=== PATIENT | male | born 1945 | race Caucasian/White ===

== ENCOUNTER 2017-11-01 10:14 | Day surgery (SDC) | payer MEDICARE ==
[2017-11-01] MEDS: NS 1,000 ML IV (10:00)
[2017-11-01] MEDS ORDERED: PROPOFOL 500 MG/50 ML VIAL As Ordered (11:08)
[2017-11-01] MEDS ORDERED: LIDOCAINE 2% INJ 100 MG/5 ML SDV (FOR ANES.) As Ordered (11:15)
== END 2017-11-01 13:20 | disposition home or self-care (01) ==
LOC: M OPP 10:14
DX: K92.1 Melena (principal); D62 Acute posthemorrhagic anemia; D50.9 Iron deficiency anemia, unspecified; C18.9 Malignant neoplasm of colon, unspecified; K63.89 Other specified diseases of intestine; K57.30 Diverticulosis of large intestine without perforation or abscess without bleeding; K62.89 Other specified diseases of anus and rectum; K64.8 Other hemorrhoids; K22.8 Other specified diseases of esophagus; K29.70 Gastritis, unspecified, without bleeding; K31.89 Other diseases of stomach and duodenum; K44.9 Diaphragmatic hernia without obstruction or gangrene; K57.10 Diverticulosis of small intestine without perforation or abscess without bleeding; Z95.5 Presence of coronary angioplasty implant and graft; I25.10 Atherosclerotic heart disease of native coronary artery without angina pectoris; I10 Essential (primary) hypertension; E78.5 Hyperlipidemia, unspecified; R12 Heartburn; K21.9 Gastro-esophageal reflux disease without esophagitis; M54.9 Dorsalgia, unspecified; R06.83 Snoring; Z85.46 Personal history of malignant neoplasm of prostate; Z92.3 Personal history of irradiation; Z85.820 Personal history of malignant melanoma of skin; Z88.8 Allergy status to other drugs, medicaments and biological substances; Z91.048 Other nonmedicinal substance allergy status; Z79.82 Long term (current) use of aspirin; Z79.899 Other long term (current) drug therapy; Z79.02 Long term (current) use of antithrombotics/antiplatelets
CPT/HCPCS: 45380

== ENCOUNTER → 2017-11-06 | Outpatient (CLI) | payer MEDICARE ==
[2017-11-06 12:17] LABS: BASO # 0.1 10^3/uL (0.0-0.2); BASO % 1.4 % (0.0-1.0); EOS # 0.1 10^3/uL (0.0-0.50); EOS % 1.7 % (0.0-3.0); HEMATOCRIT 32.6 % (42.0-52.0); HEMOGLOBIN 9.8 g/dl (14.0-18.0); IMMATURE GRANULOCYTE % 0.3 % (0-0); LYMPH % 16.7 % (24.0-44.0); MEAN CORPUSCULAR HEMOGLOBIN 25.3 pg (27.0-33.0); MEAN CORPUSCULAR HGB CONC 30.1 g/dl (32.0-36.5); MONO # 0.6 10^3/uL (0.0-0.8); MONO % 9.5 % (0.0-5.0); NEUTROPHILS # 4.1 10^3/uL (1.8-7.7); NEUTROPHILS % 70.4 % (36.0-66.0); PLATELET COUNT, AUTOMATED 278 10^3/uL (150-450); RED BLOOD COUNT 3.88 10^6/uL (4.30-6.10); RED CELL DISTRIBUTION WIDTH 15.3 % (11.5-14.5); WHITE BLOOD COUNT 5.8 10^3/uL (4.0-10.0)
[2017-11-06 12:56] LABS: ALBUMIN 3.3 GM/DL (3.2-5.2); ALBUMIN/GLOBULIN RATIO 1.18 (1.00-1.93); ALKALINE PHOSPHATASE 81 U/L (45-117); ALT/SGPT 16 U/L (12-78); ANION GAP 5 MEQ/L (8-16); AST/SGOT 12 U/L (7-37); BILIRUBIN,TOTAL 0.3 MG/DL (0.2-1.0); BLOOD UREA NITROGEN 19 MG/DL (7-18); CALCIUM LEVEL 8.4 MG/DL (8.8-10.2); CARBON DIOXIDE LEVEL 29 MEQ/L (21-32); CHLORIDE LEVEL 107 MEQ/L (98-107); CREATININE FOR GFR 1.27 MG/DL (0.70-1.30); GLOMERULAR FILTRATION RATE 59.2 (>42); GLUCOSE, FASTING 108 MG/DL (70-100); POTASSIUM SERUM 4.3 MEQ/L (3.5-5.1); SODIUM LEVEL 141 MEQ/L (136-145); TOTAL PROTEIN 6.1 GM/DL (6.4-8.2)
[2017-11-07 10:03] LABS: CARCINOEMBRYONIC ANTIGEN 19.7 NG/ML (<2.5)
== END ==
LOC: M LAB 11:38
DX: C18.2 Malignant neoplasm of ascending colon (principal)
CPT/HCPCS: 82378

== ENCOUNTER → 2017-11-09 | Outpatient (CLI) | payer MEDICARE ==
[~2017-11-09] MED LIST: GASTROGRAFIN SOLUTION 30ML (Q9963) As Ordered; ISOVUE-370 76% 100ML VIAL (Q9967) As Ordered
== END ==
LOC: M RAD 08:00
DX: C18.2 Malignant neoplasm of ascending colon (principal); N28.1 Cyst of kidney, acquired
CPT/HCPCS: Q9963

== ENCOUNTER → 2018-01-29 | Outpatient (REF) | payer MEDICARE, MEDICAID ==
[2018-01-29 13:43] LABS: INR 0.97
[2018-01-29 13:44] LABS: FERRITIN 25 NG/ML (26-388); IRON (FE) 25 UG/DL (65-175); PARTIAL THROMBOPLASTIN TIME 31.4 SECONDS (26.8-37.9); TOTAL IRON BINDING CAPACITY 357 UG/DL (250-450)
[2018-01-30 10:48] LABS: CARCINOEMBRYONIC ANTIGEN 16.7 NG/ML (<2.5)
== END ==
LOC: M LAB REF 12:54
DX: C18.9 Malignant neoplasm of colon, unspecified (principal); Z79.01 Long term (current) use of anticoagulants
CPT/HCPCS: 82378

== ENCOUNTER → 2018-02-01 | Outpatient (CLI) | payer MEDICARE, OTHER ==
[~2018-02-01] MED LIST changes: -GASTROGRAFIN SOLUTION 30ML (Q9963) As Ordered; -ISOVUE-370 76% 100ML VIAL (Q9967) As Ordered; +LIDOCAINE 2% MDV 20 ML VIAL As Ordered; +MIDAZOLAM INJ 2 MG/2 ML VIAL (J2250) As Ordered; +ceFAZolin 1GM INJ (J0690 PER 500MG) As Ordered; +fentaNYL 100 MCG/2 ML INJECTION (J3010) As Ordered
== END | disposition home or self-care (01) ==
LOC: M IRPRO 07:45
DX: C61 Malignant neoplasm of prostate (principal)
CPT/HCPCS: 36561

== ENCOUNTER → 2018-04-03 | Outpatient (REF) | payer MEDICARE ==
[2018-04-03 13:59] LABS: CARCINOEMBRYONIC ANTIGEN 1.8 NG/ML (<2.5)
== END ==
LOC: M LAB REF 13:29
DX: C18.2 Malignant neoplasm of ascending colon (principal); R97.21 Rising PSA following treatment for malignant neoplasm of prostate; C61 Malignant neoplasm of prostate
CPT/HCPCS: 82378

== ENCOUNTER → 2018-05-01 | Outpatient (REF) | payer MEDICARE ==
[2018-05-01 14:24] LABS: CARCINOEMBRYONIC ANTIGEN 0.9 NG/ML (<2.5)
== END ==
LOC: M LAB REF 13:33
DX: C18.2 Malignant neoplasm of ascending colon (principal); R97.21 Rising PSA following treatment for malignant neoplasm of prostate; C61 Malignant neoplasm of prostate
CPT/HCPCS: 82378

== ENCOUNTER → 2018-06-12 | Outpatient (REF) | payer MEDICARE ==
[2018-06-12 11:48] LABS: CARCINOEMBRYONIC ANTIGEN 0.7 NG/ML (<2.5)
== END ==
LOC: M LAB REF 10:41
DX: C18.2 Malignant neoplasm of ascending colon (principal); R97.21 Rising PSA following treatment for malignant neoplasm of prostate; C61 Malignant neoplasm of prostate
CPT/HCPCS: 82378

== ENCOUNTER → 2018-06-29 | Outpatient (CLI) | payer MEDICARE | LOC: M RAD 15:09 | DX: R56.9 Unspecified convulsions (principal) | CPT/HCPCS: 70450 ==

== ENCOUNTER 2018-07-16 18:39 | Emergency (ER) | payer MEDICARE ==
[2018-07-16 19:46] LABS: HEMATOCRIT 35.5 % (42.0-52.0); HEMOGLOBIN 11.4 g/dl (13.5-17.5); MEAN CORPUSCULAR HEMOGLOBIN 30.7 pg (27.0-33.0); MEAN CORPUSCULAR HGB CONC 32.1 g/dl (32.0-36.5); MEAN CORPUSCULAR VOLUME 95.7 fl (80.0-96.0); RED BLOOD COUNT 3.71 10^6/uL (4.30-6.10); RED CELL DISTRIBUTION WIDTH 17.7 % (11.5-14.5); WHITE BLOOD COUNT 12.3 10^3/uL (4.0-10.0)
[2018-07-16 19:53] LABS: APPEARANCE, URINE CLEAR (CLEAR); BACTERIA, URINE AUTO NEGATIVE (NEGATIVE); BILIRUBIN, URINE AUTO NEGATIVE (NEGATIVE); BLOOD, URINE BLOOD 1+ (NEGATIVE); COLOR, URINE YELLOW (YELLOW); GLUCOSE, URINE (UA) AUTO 1+ mg/dL (NEGATIVE); KETONE, URINE AUTO NEGATIVE (NEGATIVE); LEUKOCYTE ESTERASE, URINE AUTO NEGATIVE (NEGATIVE); MUCUS, URINE MODERATE (NEGATIVE); NITRITE, URINE AUTO NEGATIVE (NEGATIVE); PROTEIN, URINE AUTO 1+ mg/dL (NEGATIVE); RBC, URINE AUTO 7 /HPF (0-3); SPECIFIC GRAVITY URINE AUTO 1.024 (1.002-1.035); SQUAMOUS EPITHELIAL CELL UR AU 0 /HPF (0-6); UROBILINOGEN, URINE AUTO 0.2 mg/dL (0.0-2.0); WBC, URINE AUTO 2 /HPF (0-3)
[2018-07-16 20:04] LABS: POSITIVE MORPH POS FLAG
[2018-07-16 20:05] LABS: ADD MANUAL DIFFER YES; ALBUMIN/GLOBULIN RATIO 0.91 (1.00-1.93); ALKALINE PHOSPHATASE 124 U/L (45-117); ALT/SGPT 24 U/L (12-78); ANION GAP 10 MEQ/L (8-16); AST/SGOT 29 U/L (7-37); BILIRUBIN,DIRECT 0.3 MG/DL (0.0-0.2); BILIRUBIN,TOTAL 0.6 MG/DL (0.2-1.0); BLOOD UREA NITROGEN 17 MG/DL (7-18); CALCIUM LEVEL 8.4 MG/DL (8.8-10.2); CARBON DIOXIDE LEVEL 25 MEQ/L (21-32); CHLORIDE LEVEL 101 MEQ/L (98-107); DIFF SLIDE NUMBER 393; GLOMERULAR FILTRATION RATE 52.7 (>42); GLUCOSE, FASTING 133 MG/DL (70-100); SODIUM LEVEL 136 MEQ/L (136-145); TOTAL PROTEIN 6.3 GM/DL (6.4-8.2)
[2018-07-16 20:11] LABS: ATYPICAL LYMPH 5 % (0-5); BANDS 4 % (< 11); BASOPHILS 1 % (0-4); EOSINOPHILS 1 % (0-5); LYMPHOCYTES 3 % (16-52); MONOCYTES 4 % (0-8); NEUTROPHILS 82 % (35-75); PLATELET ESTIMATE INVALID (NORMAL); TOXIC GRANULATION 2+
[2018-07-16 20:12] LABS: LACTIC ACID SEPSIS PROTOCOL 2.8 MMOL/L (0.4-2.0)
[2018-07-16 20:13] LABS: POLYCHROMASIA 1+; TEAR DROP CELLS 1+
[2018-07-16] MEDS: NS 1,000 ML IV ×2 (20:45→23:15)
[2018-07-16] MEDS ORDERED: ISOVUE-370 76% 100ML VIAL (Q9967) As Ordered (20:53)
== END 2018-07-17 00:22 | disposition home or self-care (01) ==
LOC: M ED 07-17 00:22
DX: E86.0 Dehydration (principal); I95.1 Orthostatic hypotension; R73.03 Prediabetes; Z85.46 Personal history of malignant neoplasm of prostate; Z85.038 Personal history of other malignant neoplasm of large intestine; Z92.21 Personal history of antineoplastic chemotherapy
CPT/HCPCS: Q9967

== ENCOUNTER 2018-07-24 11:00 | Inpatient (IN) | payer MEDICARE ==
[~2018-07-24 11:00] MED LIST changes: +GASTROGRAFIN SOLUTION 30ML (Q9963) As Ordered; -LIDOCAINE 2% MDV 20 ML VIAL As Ordered; -MIDAZOLAM INJ 2 MG/2 ML VIAL (J2250) As Ordered; -ceFAZolin 1GM INJ (J0690 PER 500MG) As Ordered; -fentaNYL 100 MCG/2 ML INJECTION (J3010) As Ordered
[2018-07-24] MEDS ORDERED: ONDANSETRON 4MG/2ML VIAL (J2405) IV (13:15)
[2018-07-24] MEDS ORDERED: LIDOCAINE 1% MDV 20ML VIAL As Ordered (13:20)
[2018-07-24 14:46] LABS: LIPASE 116 U/L (73-393)
[2018-07-24 15:02] LABS: C REACTIVE PROTEIN QUANTITATIV 9.49 MG/DL (0.00-0.30)
[2018-07-24] MEDS: NYSTATIN 500,000 U/5 ML SUSP UDC SS (17:59)
[2018-07-24] MEDS: SODIUM CHLORIDE 0.9% 1000ML IV (17:59)
[2018-07-24] MEDS: PIPERACILLIN/TAZOBACTAM SOD 3.375 GM in D5W MINI-BAG PLUS 50 ML IV (17:59)
[2018-07-24] MEDS: NS 1,000 ML IV ×2 (18:00→20:30)
[2018-07-24] MEDS: PRAVASTATIN 20 MG TAB PO (20:31)
[2018-07-24] MEDS: OMEPRAZOLE 20 MG CAP PO (20:31)
[2018-07-24] MEDS: METOPROLOL TART 25 MG TABLET PO (20:31)
[2018-07-24] MEDS: ACETAMINOPHEN TAB 650MG DOSE (2X325MG) PO (20:32)
[2018-07-24] MEDS: HEPARIN SOD (PORCINE) 5000 UNITS/ML VIAL SC (21:56)
[2018-07-25] MEDS: PIPERACILLIN/TAZOBACTAM SOD 3.375 GM in D5W MINI-BAG PLUS 50 ML IV ×3 (01:46→17:03)
[2018-07-25] MEDS: HEPARIN SOD (PORCINE) 5000 UNITS/ML VIAL SC ×3 (05:42→21:17)
[2018-07-25] MEDS: NYSTATIN 500,000 U/5 ML SUSP UDC SS ×5 (05:45→22:49)
[2018-07-25 07:08] LABS: BASO % 0.7 % (0.0-1.0); EOS % 0.9 % (0.0-3.0); HEMOGLOBIN 9.7 g/dl (13.5-17.5); IMMATURE GRANULOCYTE % 1.4 % (0-3.0); LYMPH # 0.5 10^3/uL (1.5-4.5); LYMPH % 11.5 % (24.0-44.0); MEAN CORPUSCULAR HEMOGLOBIN 30.3 pg (27.0-33.0); MEAN CORPUSCULAR HGB CONC 31.3 g/dl (32.0-36.5); MEAN CORPUSCULAR VOLUME 96.9 fl (80.0-96.0); MONO # 0.4 10^3/uL (0.0-0.8); MONO % 9.7 % (0.0-5.0); NEUTROPHILS # 3.4 10^3/uL (1.8-7.7); NEUTROPHILS % 75.8 % (36.0-66.0); PLATELET COUNT, AUTOMATED 148 10^3/uL (150-450); RED CELL DISTRIBUTION WIDTH 18.1 % (11.5-14.5); WHITE BLOOD COUNT 4.4 10^3/uL (4.0-10.0)
[2018-07-25 07:42] LABS: ALBUMIN 2.4 GM/DL (3.2-5.2); ALBUMIN/GLOBULIN RATIO 0.89 (1.00-1.93); ALKALINE PHOSPHATASE 77 U/L (45-117); ALT/SGPT 20 U/L (12-78); ANION GAP 7 MEQ/L (8-16); AST/SGOT 23 U/L (7-37); BILIRUBIN,TOTAL 0.5 MG/DL (0.2-1.0); BLOOD UREA NITROGEN 20 MG/DL (7-18); C REACTIVE PROTEIN QUANTITATIV 9.64 MG/DL (0.00-0.30); CALCIUM LEVEL 8.2 MG/DL (8.8-10.2); CARBON DIOXIDE LEVEL 26 MEQ/L (21-32); CHLORIDE LEVEL 109 MEQ/L (98-107); CREATININE FOR GFR 1.69 MG/DL (0.70-1.30); GLOMERULAR FILTRATION RATE 42.4 (>42); GLUCOSE, FASTING 135 MG/DL (70-100); MAGNESIUM LEVEL 2.1 MG/DL (1.8-2.4); POTASSIUM SERUM 4.1 MEQ/L (3.5-5.1); SODIUM LEVEL 142 MEQ/L (136-145); TOTAL PROTEIN 5.1 GM/DL (6.4-8.2)
[2018-07-25] MEDS: OMEPRAZOLE 20 MG CAP PO ×2 (08:20→20:26)
[2018-07-25] MEDS: FERROUS SULFATE 325MG TAB PO (08:20)
[2018-07-25] MEDS: ASPIRIN 81 MG ENTERIC TAB PO (08:21)
[2018-07-25] MEDS: DOCUSATE SODIUM 100 MG CAP PO (08:21)
[2018-07-25] MEDS: METOPROLOL TART 25 MG TABLET PO ×2 (08:25→20:25)
[2018-07-25] MEDS: SODIUM CHLORIDE 0.9% INJ 10 ML SYR IV (09:00)
[2018-07-25] MEDS: NS 1,000 ML IV ×2 (09:03→17:03)
[2018-07-25] MEDS: PRAVASTATIN 20 MG TAB PO (20:26)
[2018-07-26] MEDS: PIPERACILLIN/TAZOBACTAM SOD 3.375 GM in D5W MINI-BAG PLUS 50 ML IV ×3 (01:35→18:15)
[2018-07-26] MEDS: NS 1,000 ML IV (03:42)
[2018-07-26] MEDS: NYSTATIN 500,000 U/5 ML SUSP UDC SS ×4 (05:36→22:00)
[2018-07-26] MEDS: HEPARIN SOD (PORCINE) 5000 UNITS/ML VIAL SC ×3 (05:36→22:00)
[2018-07-26 07:02] LABS: BASO % 0.4 % (0.0-1.0); EOS # 0.1 10^3/uL (0.0-0.50); EOS % 1.3 % (0.0-3.0); IMMATURE GRANULOCYTE % 1.3 % (0-3.0); LYMPH # 0.5 10^3/uL (1.5-4.5); MEAN CORPUSCULAR HEMOGLOBIN 30.4 pg (27.0-33.0); MEAN CORPUSCULAR HGB CONC 32.1 g/dl (32.0-36.5); MEAN CORPUSCULAR VOLUME 94.6 fl (80.0-96.0); MONO # 0.4 10^3/uL (0.0-0.8); MONO % 9.3 % (0.0-5.0); NEUTROPHILS # 3.6 10^3/uL (1.8-7.7); NEUTROPHILS % 76.7 % (36.0-66.0); PLATELET COUNT, AUTOMATED 173 10^3/uL (150-450); RED BLOOD COUNT 2.96 10^6/uL (4.30-6.10); RED CELL DISTRIBUTION WIDTH 18.2 % (11.5-14.5); WHITE BLOOD COUNT 4.7 10^3/uL (4.0-10.0)
[2018-07-26 07:27] LABS: ALBUMIN/GLOBULIN RATIO 0.67 (1.00-1.93); ALKALINE PHOSPHATASE 65 U/L (45-117); ALT/SGPT 16 U/L (12-78); ANION GAP 8 MEQ/L (8-16); AST/SGOT 16 U/L (7-37); BILIRUBIN,TOTAL 0.3 MG/DL (0.2-1.0); BLOOD UREA NITROGEN 16 MG/DL (7-18); C REACTIVE PROTEIN QUANTITATIV 6.67 MG/DL (0.00-0.30); CALCIUM LEVEL 7.8 MG/DL (8.8-10.2); CARBON DIOXIDE LEVEL 23 MEQ/L (21-32); CHLORIDE LEVEL 112 MEQ/L (98-107); CREATININE FOR GFR 1.55 MG/DL (0.70-1.30); GLOMERULAR FILTRATION RATE 46.9 (>42); GLUCOSE, FASTING 115 MG/DL (70-100); POTASSIUM SERUM 3.5 MEQ/L (3.5-5.1); SODIUM LEVEL 143 MEQ/L (136-145)
[2018-07-26] MEDS: SODIUM CHLORIDE 0.9% INJ 10 ML SYR IV ×2 (07:43→10:05)
[2018-07-26] MEDS: METOPROLOL TART 25 MG TABLET PO ×2 (09:06→21:59)
[2018-07-26] MEDS: OMEPRAZOLE 20 MG CAP PO ×2 (09:06→21:58)
[2018-07-26] MEDS: ASPIRIN 81 MG ENTERIC TAB PO (09:06)
[2018-07-26] MEDS: DOCUSATE SODIUM 100 MG CAP PO (09:06)
[2018-07-26] MEDS: PRAVASTATIN 20 MG TAB PO (21:58)
[2018-07-27] MEDS: PIPERACILLIN/TAZOBACTAM SOD 3.375 GM in D5W MINI-BAG PLUS 50 ML IV ×2 (01:28→09:13)
[2018-07-27] MEDS ORDERED: HEPARIN SOD (PORCINE) 5000 UNITS/ML VIAL IV (01:45)
[2018-07-27 03:36] LABS: PARTIAL THROMBOPLASTIN TIME 150.3 SECONDS (25.4-37.6)
[2018-07-27 04:25] LABS: PARTIAL THROMBOPLASTIN TIME 57.5 SECONDS (25.4-37.6)
[2018-07-27] MEDS: HEPARIN SOD (PORCINE) 5000 UNITS/ML VIAL IV (04:54)
[2018-07-27] MEDS: HEPARIN DRIP 25,000 UNITS in APPROPRIATE DILUENT 1 EA IV (04:56)
[2018-07-27 05:16] LABS: BASO % 0.8 % (0.0-1.0); EOS # 0.1 10^3/uL (0.0-0.50); EOS % 1.6 % (0.0-3.0); HEMATOCRIT 27.9 % (42.0-52.0); HEMOGLOBIN 8.6 g/dl (13.5-17.5); IMMATURE GRANULOCYTE % 1.4 % (0-3.0); LYMPH # 0.7 10^3/uL (1.5-4.5); LYMPH % 13.8 % (24.0-44.0); MEAN CORPUSCULAR HEMOGLOBIN 29.7 pg (27.0-33.0); MEAN CORPUSCULAR HGB CONC 30.8 g/dl (32.0-36.5); MEAN CORPUSCULAR VOLUME 96.2 fl (80.0-96.0); MONO # 0.5 10^3/uL (0.0-0.8); MONO % 9.9 % (0.0-5.0); NEUTROPHILS # 3.7 10^3/uL (1.8-7.7); NEUTROPHILS % 72.5 % (36.0-66.0); PLATELET COUNT, AUTOMATED 198 10^3/uL (150-450); RED CELL DISTRIBUTION WIDTH 18.1 % (11.5-14.5); WHITE BLOOD COUNT 5.2 10^3/uL (4.0-10.0)
[2018-07-27 06:03] LABS: C REACTIVE PROTEIN QUANTITATIV 4.44 MG/DL (0.00-0.30)
[2018-07-27 06:05] LABS: ALBUMIN 2.1 GM/DL (3.2-5.2); ALBUMIN/GLOBULIN RATIO 0.72 (1.00-1.93); ALKALINE PHOSPHATASE 67 U/L (45-117); ALT/SGPT 15 U/L (12-78); ANION GAP 8 MEQ/L (8-16); AST/SGOT 17 U/L (7-37); BILIRUBIN,TOTAL 0.2 MG/DL (0.2-1.0); BLOOD UREA NITROGEN 13 MG/DL (7-18); CALCIUM LEVEL 7.8 MG/DL (8.8-10.2); CARBON DIOXIDE LEVEL 25 MEQ/L (21-32); CHLORIDE LEVEL 111 MEQ/L (98-107); CREATININE FOR GFR 1.42 MG/DL (0.70-1.30); GLOMERULAR FILTRATION RATE 51.9 (>42); GLUCOSE, FASTING 123 MG/DL (70-100); MAGNESIUM LEVEL 1.9 MG/DL (1.8-2.4); POTASSIUM SERUM 3.4 MEQ/L (3.5-5.1); SODIUM LEVEL 144 MEQ/L (136-145)
[2018-07-27] MEDS: NYSTATIN 500,000 U/5 ML SUSP UDC SS ×2 (06:53→12:00)
[2018-07-27] MEDS: ASPIRIN 81 MG ENTERIC TAB PO (08:43)
[2018-07-27] MEDS: DOCUSATE SODIUM 100 MG CAP PO (08:43)
[2018-07-27] MEDS: FERROUS SULFATE 325MG TAB PO (08:43)
[2018-07-27] MEDS: ENOXAPARIN 100MG/1ML SYRINGE (J1650) SC (08:43)
[2018-07-27] MEDS: SODIUM CHLORIDE 0.9% INJ 10 ML SYR IV (08:43)
[2018-07-27] MEDS: OMEPRAZOLE 20 MG CAP PO (08:43)
[2018-07-27] MEDS: METOPROLOL TART 25 MG TABLET PO (08:44)
[2018-07-27] MEDS ORDERED: ENOXAPARIN 100MG/1ML SYRINGE (J1650) SC (21:00)
== END 2018-07-27 16:30 | disposition home or self-care (01) | DRG 863 ==
LOC: M MSPAV 07-26 15:12 → M RADPRO 14:00 → M MS4PR 15:15
PROVIDERS: Internal Medicine
PROC: 0W9G30Z Drainage of Peritoneal Cavity with Drainage Device, Percutaneous Approach (ICD-10-PCS; principal; 2018-07-24)
DX: T81.43XA Infection following a procedure, organ and space surgical site, initial encounter (principal); E87.1 Hypo-osmolality and hyponatremia; K83.09 Other cholangitis; I82.412 Acute embolism and thrombosis of left femoral vein; L02.211 Cutaneous abscess of abdominal wall; C18.9 Malignant neoplasm of colon, unspecified; K68.11 Postprocedural retroperitoneal abscess; I25.10 Atherosclerotic heart disease of native coronary artery without angina pectoris; I12.9 Hypertensive chronic kidney disease with stage 1 through stage 4 chronic kidney disease, or unspecified chronic kidney disease; E78.5 Hyperlipidemia, unspecified; B96.20 Unspecified Escherichia coli [E. coli] as the cause of diseases classified elsewhere; R73.03 Prediabetes; N18.3 Chronic kidney disease, stage 3 (moderate); D64.9 Anemia, unspecified; M10.9 Gout, unspecified; Z85.038 Personal history of other malignant neoplasm of large intestine; K21.9 Gastro-esophageal reflux disease without esophagitis; Z90.49 Acquired absence of other specified parts of digestive tract; Z85.46 Personal history of malignant neoplasm of prostate; Z95.5 Presence of coronary angioplasty implant and graft; Z79.82 Long term (current) use of aspirin; Z79.899 Other long term (current) drug therapy; Z88.8 Allergy status to other drugs, medicaments and biological substances; Z91.048 Other nonmedicinal substance allergy status

== ENCOUNTER → 2018-07-24 | Outpatient (CLI) | payer MEDICARE | LOC: M RAD 09:54 | DX: R10.9 Unspecified abdominal pain (principal) ==

== ENCOUNTER → 2018-08-10 | Outpatient (CLI) | payer MEDICARE ==
[~2018-08-10] MED LIST changes: +ISOVUE-370 76% 100ML VIAL (Q9967) As Ordered
== END ==
LOC: M RAD 15:37
DX: K65.1 Peritoneal abscess (principal); N28.1 Cyst of kidney, acquired; Z96.89 Presence of other specified functional implants
CPT/HCPCS: Q9963

== ENCOUNTER 2018-08-13 14:48 | Emergency (ER) | payer MEDICARE ==
[2018-08-13] MEDS: PERCOCET 5MG/325MG TAB PO (15:15)
[2018-08-13 15:52] LABS: HEMATOCRIT 34.4 % (42.0-52.0); HEMOGLOBIN 10.8 g/dl (13.5-17.5); MEAN CORPUSCULAR HEMOGLOBIN 30.5 pg (27.0-33.0); MEAN CORPUSCULAR HGB CONC 31.4 g/dl (32.0-36.5); MEAN CORPUSCULAR VOLUME 97.2 fl (80.0-96.0); PLATELET COUNT, AUTOMATED 174 10^3/uL (150-450); RED BLOOD COUNT 3.54 10^6/uL (4.30-6.10); RED CELL DISTRIBUTION WIDTH 17.4 % (11.5-14.5); WHITE BLOOD COUNT 4.2 10^3/uL (4.0-10.0)
[2018-08-13 16:10] LABS: ANION GAP 10 MEQ/L (8-16); BLOOD UREA NITROGEN 8 MG/DL (7-18); CALCIUM LEVEL 8.7 MG/DL (8.8-10.2); CARBON DIOXIDE LEVEL 26 MEQ/L (21-32); CHLORIDE LEVEL 106 MEQ/L (98-107); CREATININE FOR GFR 1.06 MG/DL (0.70-1.30); GLOMERULAR FILTRATION RATE > 60.0 (>42); GLUCOSE, FASTING 95 MG/DL (70-100); POTASSIUM SERUM 3.8 MEQ/L (3.5-5.1); SODIUM LEVEL 142 MEQ/L (136-145)
== END 2018-08-13 16:53 | disposition home or self-care (01) ==
LOC: M ED 16:53
DX: R10.9 Unspecified abdominal pain (principal); I51.9 Heart disease, unspecified; I10 Essential (primary) hypertension; Z85.038 Personal history of other malignant neoplasm of large intestine; Z95.1 Presence of aortocoronary bypass graft; Z96.9 Presence of functional implant, unspecified; K43.9 Ventral hernia without obstruction or gangrene; Z79.82 Long term (current) use of aspirin; Z79.899 Other long term (current) drug therapy; Z88.8 Allergy status to other drugs, medicaments and biological substances; Z91.89 Other specified personal risk factors, not elsewhere classified
CPT/HCPCS: 74176

== ENCOUNTER 2018-08-25 13:53 | Emergency (ER) | payer MEDICARE ==
[2018-08-25 16:07] LABS: BASO # 0.1 10^3/uL (0.0-0.2); BASO % 1.7 % (0.0-1.0); EOS # 0.3 10^3/uL (0.0-0.50); EOS % 7.7 % (0.0-3.0); HEMATOCRIT 32.6 % (42.0-52.0); HEMOGLOBIN 10.2 g/dl (13.5-17.5); IMMATURE GRANULOCYTE % 0.2 % (0-3.0); LYMPH % 23.2 % (24.0-44.0); MEAN CORPUSCULAR HEMOGLOBIN 30.3 pg (27.0-33.0); MEAN CORPUSCULAR HGB CONC 31.3 g/dl (32.0-36.5); MEAN CORPUSCULAR VOLUME 96.7 fl (80.0-96.0); MONO # 0.6 10^3/uL (0.0-0.8); NEUTROPHILS # 2.2 10^3/uL (1.8-7.7); NEUTROPHILS % 53.2 % (36.0-66.0); PLATELET COUNT, AUTOMATED 154 10^3/uL (150-450); RED BLOOD COUNT 3.37 10^6/uL (4.30-6.10); RED CELL DISTRIBUTION WIDTH 16.1 % (11.5-14.5); WHITE BLOOD COUNT 4.1 10^3/uL (4.0-10.0)
[2018-08-25] MEDS: FAMOTIDINE INJ 20MG/2ML VIAL (S0028) IV (16:15)
[2018-08-25] MEDS: methylPREDNISolone INJ 125 MG/2 ML VIAL (J2930) IV (16:15)
[2018-08-25 16:20] LABS: INR 0.97
[2018-08-25 16:21] LABS: PARTIAL THROMBOPLASTIN TIME 30.6 SECONDS (25.4-37.6)
[2018-08-25 16:29] LABS: ALBUMIN 3.1 GM/DL (3.2-5.2); ALBUMIN/GLOBULIN RATIO 0.86 (1.00-1.93); ALKALINE PHOSPHATASE 82 U/L (45-117); ALT/SGPT 38 U/L (12-78); ANION GAP 5 MEQ/L (8-16); AST/SGOT 40 U/L (7-37); BILIRUBIN,DIRECT < 0.1 MG/DL (0.0-0.2); BILIRUBIN,TOTAL 0.3 MG/DL (0.2-1.0); BLOOD UREA NITROGEN 9 MG/DL (7-18); C REACTIVE PROTEIN QUANTITATIV 0.85 MG/DL (0.00-0.30); CALCIUM LEVEL 8.5 MG/DL (8.8-10.2); CARBON DIOXIDE LEVEL 28 MEQ/L (21-32); CHLORIDE LEVEL 109 MEQ/L (98-107); CREATININE FOR GFR 1.11 MG/DL (0.70-1.30); GLOMERULAR FILTRATION RATE > 60.0 (>42); GLUCOSE, FASTING 102 MG/DL (70-100); POTASSIUM SERUM 3.4 MEQ/L (3.5-5.1); SODIUM LEVEL 142 MEQ/L (136-145); TOTAL PROTEIN 6.7 GM/DL (6.4-8.2)
[2018-08-25 16:39] LABS: ERYTHROCYTE SEDIMENTATION RATE 46 mm/hr (0-20)
[2018-08-25] MEDS: hydrOXYzine 25 MG TAB PO (17:38)
[2018-08-25] MEDS: DOXEPIN 10 MG CAP PO (18:56)
== END 2018-08-25 19:59 | disposition home or self-care (01) ==
LOC: M ED 13:53
DX: L03.116 Cellulitis of left lower limb (principal); I82.4Z2 Acute embolism and thrombosis of unspecified deep veins of left distal lower extremity; L30.9 Dermatitis, unspecified; E11.9 Type 2 diabetes mellitus without complications; I10 Essential (primary) hypertension; E78.5 Hyperlipidemia, unspecified; K21.9 Gastro-esophageal reflux disease without esophagitis; Z95.1 Presence of aortocoronary bypass graft; Z95.5 Presence of coronary angioplasty implant and graft; Z79.899 Other long term (current) drug therapy
CPT/HCPCS: J2930

== ENCOUNTER → 2019-01-08 | Outpatient (CLI) | payer MEDICARE ==
[~2019-01-08] MED LIST changes: +ASPI81TA26 PO; +BABY81CH PO; +CEFD1CAP8 PO; +CETI10CH PO; +CIPR500T3 PO; +CLAR10CA3 PO; +CLEO300C2 PO; +COLA100C5 PO; +DOXE10CA PO; +DULC5TAB PO; +DYAZ37.5; +ENOX150I3 SC; +FLAG500T PO; +FURO20TA2 PO; +GABA-1171 PO; -GASTROGRAFIN SOLUTION 30ML (Q9963) As Ordered; +GLUC500T; +HYDR-3715 PO; +HYDR-4570 PO; +IRON65TA PO; -ISOVUE-370 76% 100ML VIAL (Q9967) As Ordered; +LISI-538 PO; +LISI10TA4 PO; +LOVE0.8I SC; +LUPR45IN IM; +METO1TAB87 PO; +NEUR400C; +NORT25CA2; +NYST50SS SS; +OMEP20CA3 PO; +ONDA4TAB6 PO; +PLAV1TAB2 PO; +POTA1TAB23 PO; +PRAV40TA2 PO; +PRED20TA PO; +PROC10TA4 PO; +REQU1TAB15; +TRAM50TA2; +VITA100067 PO; +VITAD1000T PO; +XARE15TA PO; +XARE20TA PO; +ZOFR4TAB14 SL
--- NOTE | 2019-01-08 18:06 | REP ---
PET/CT: History: Restaging colon carcinoma. Comparisons: Comparison CT study of the chest abdomen and pelvis October 04, 2018. Status post right hemicolectomy November 2017 post chemotherapy. TECHNIQUE: 51 minutes following the intravenous injection of a 10.6 mCi dose of F-18 FDG, three-dimensional PET scintigraphy is acquired from the skull base to the proximal thighs. Triplanar noncontrast CT scanning is acquired through the same anatomic range for attenuation correction, and image registration with scan parameters optimized to minimize radiation exposure to the patient. PET scintigraphy and CT datasets were fused and displayed on a workstation with multiplanar and projection display capability. PET/CT Findings: There is mild movement related misregistration artifact. Head and neck soft tissues are unremarkable. There is no abnormal everett hypermetabolic uptake in the chest or mediastinum. No abnormal pulmonary parenchymal hypermetabolic uptake is seen. There is a left-sided Bkqala-G-Dewb catheter there are granulomatous calcifications in the right hemithorax. In the abdomen and pelvis, normal hepatic, splenic, gastrointestinal, and genitourinary FDG accumulation is seen. There is a ventral hernia. The patient status post right hemicolectomy with sutures. No abnormal everett hypermetabolic uptake is seen in the abdomen or pelvis. The previously noted left periaortic lymph nodes are decreased in size. The largest of these measures 0.9 cm in short axis dimension. This does not show hypermetabolic uptake. No other abnormal everett uptake is seen in the abdomen or pelvis on today's PET scintigraphy. Impression: No abnormal hypermetabolic uptake seen. The patient status post right colectomy. Ventral hernia. Electronically Signed by Bakari Peters MD 01/08/2019 08:38 P
== END ==
LOC: M PLARAD 07:25
PROVIDERS: ATTEND Nurse Practitioner Family
DX: C18.2 Malignant neoplasm of ascending colon (principal); Z90.49 Acquired absence of other specified parts of digestive tract; K43.9 Ventral hernia without obstruction or gangrene
CPT/HCPCS: 78815; A9552

== ENCOUNTER → 2019-06-14 | Outpatient (CLI) | payer MEDICARE ==
[~2019-06-14] MED LIST changes: +CHOL100029 PO; -OMEP20CA3 PO; +OMEP20CA4 PO; -VITAD1000T PO
== END ==
LOC: M LAB 12:03
PROVIDERS: ATTEND Ophthalmology
DX: M31.6 Other giant cell arteritis (principal)

== ENCOUNTER → 2019-07-16 | Outpatient (CLI) | payer MEDICARE ==
[~2019-07-16] MED LIST changes: +PROHANCE 279.3MG/ML 15ML VIAL (A9576) As Ordered ONE; +PROHANCE 279.3MG/ML 5ML VIAL (A9576) As Ordered ONE
--- NOTE | 2019-07-16 16:07 | REP ---
MRI brain: 07/16/2019. Indication: Blurred vision. Comparison: None. Technique : Multiplanar short and long TR sequences of the brain were performed including T1-weighted imaging following administration of 20 ml IV ProHance. Findings: There are no areas of restricted diffusion to suggest an acute infarction. There is no intracranial mass effect or hydrocephalous. No areas of pathologic gadolinium enhancement are present. The large intracranial flow voids are present and unremarkable. There are a few areas of elevated T2 prolongation within the white matter most consistent with mild chronic small vessel disease. Mild diffuse volume loss is present. No significant ocular or intraorbital abnormalities are detected. The craniocervical junction is unremarkable. Impression: No acute intracranial process or pathologic gadolinium enhancement . Mild volume loss and sequelae of chronic small vessel disease. Electronically Signed by Jv Sharif DO 07/16/2019 03:58 P
== END ==
LOC: M RAD 08:24
PROVIDERS: ATTEND Nurse Practitioner Family
DX: E86.9 Volume depletion, unspecified (principal); I67.9 Cerebrovascular disease, unspecified; C61 Malignant neoplasm of prostate; C18.2 Malignant neoplasm of ascending colon
CPT/HCPCS: 70553; A9576

== ENCOUNTER → 2019-07-23 | Outpatient (CLI) | payer MEDICARE ==
[~2019-07-23] MED LIST changes: -PROHANCE 279.3MG/ML 15ML VIAL (A9576) As Ordered ONE; -PROHANCE 279.3MG/ML 5ML VIAL (A9576) As Ordered ONE
--- NOTE | 2019-07-24 16:13 | REP ---
REASON: History of colon cancer. COMPARISON: 01/08/2019 which showed no abnormal hypermetabolic activity. After the intravenous administration of 8.53 millicuries of FDG 18, triplane whole body PET CT was performed from the skull base to the mid thigh. There has been no interim development of abnormal hypermetabolic activity in the neck, chest, abdomen, or pelvis. Seen in the subcutaneous soft-tissues of the lower anterior abdominal wall there is a round approximately 6 cm sized low density area which is in the region of previous surgical wound. This is not hypermetabolic. IMPRESSION:1. There is no abnormal interim development of hypermetabolic activity seen on today's exam. There is no evidence of metastatic disease. 2. There is what is most probably a post-operative seroma in the anterior abdominal wall as described above. I would recommend further evaluation with standard contrast enhanced CT examination of the abdomen and pelvis for further evaluation. Electronically Signed by Reginald Nazario DO 07/24/2019 04:31 P
== END ==
LOC: M PLARAD 07:55
PROVIDERS: ATTEND Nurse Practitioner Family
DX: C18.2 Malignant neoplasm of ascending colon (principal)
CPT/HCPCS: 78815; A9552

== ENCOUNTER → 2019-07-30 | Outpatient (CLI) | payer MEDICARE ==
[~2019-07-30] MED LIST changes: +GASTROGRAFIN SOLUTION 30ML (Q9963) As Ordered ONE; +ISOVUE-370 76% 100ML VIAL (Q9967) As Ordered ONE
--- NOTE | 2019-07-30 17:15 | REP ---
CT abdomen and pelvis with IV and oral contrast: History: Colon and prostate carcinoma. Evaluate fluid collection anterior abdominal wall. Comparison PET-CT July 23, 2019. Rule out infection versus malignancy versus seroma. Comparison CT abdomen pelvis October 04, 2018. CT contrast dose: 100 ml of intravenous Isovue 370. CT findings: Preliminary digital resort desk clerk radiograph shows clips in right upper quadrant. Bowel gas pattern is normal. The lung bases show minimal bibasilar linear fibrosis. Lung bases are otherwise clear on axial CT images. There are a few granulomatous calcifications scattered in the liver parenchyma which are unchanged. Gallbladder surgically absent. No focal hepatic lesion is seen. There is an accessory splenule at the splenic hilus unchanged. There are 1 or 2 granulomatous calcifications in the spleen as well. No adrenal lesion is seen. No abnormalities noted in the pancreas. There is a parapelvic cyst and two cortical cysts in the right kidney. There are small parapelvic cysts in the left kidney. No hydronephrosis or renal mass lesion is observed. No retroperitoneal mass or adenopathy is seen. There is a low-density collection in the deep subcutaneous fat of the anterior abdominal wall periumbilical region some surrounding fibrosis and an enhancing margin. This is compatible with postoperative hematoma seroma. It measures 5.3 cm anteroposterior x 6.1 cm right to left x 8.5 cm craniocaudal. It is new since the CT study of October 04, 2018. A hernia repair has been performed however in the interval since the prior study. There is no evidence of abdominal wall hernia today. Small and large bowel loops are unremarkable in the abdomen and pelvis. No pelvic mass or adenopathy is observed. The patient is apparently status post prostatectomy. Bone window settings show no bony destructive lesion. Impression: Status post cholecystectomy, appendectomy, prostatectomy, and ventral abdominal hernia repair. There is a postoperative abdominal wall hematoma/seroma as described above measuring 8.5 cm in greatest diameter. There is no evidence of recurrent abdominal wall hernia. Electronically Signed by Bakari Peters MD 07/31/2019 09:49 A
== END ==
LOC: M RAD 14:56
PROVIDERS: ATTEND Internal Medicine Medical Oncology
DX: C18.2 Malignant neoplasm of ascending colon (principal); C61 Malignant neoplasm of prostate; N28.1 Cyst of kidney, acquired; K91.872 Postprocedural seroma of a digestive system organ or structure following a digestive system procedure; K91.870 Postprocedural hematoma of a digestive system organ or structure following a digestive system procedure; Z90.49 Acquired absence of other specified parts of digestive tract; Z90.79 Acquired absence of other genital organ(s); K75.3 Granulomatous hepatitis, not elsewhere classified
CPT/HCPCS: 74177; Q9963; Q9967

== ENCOUNTER → 2019-08-23 | Outpatient (CLI) | payer MEDICARE ==
[~2019-08-23] MED LIST changes: -GASTROGRAFIN SOLUTION 30ML (Q9963) As Ordered ONE; -ISOVUE-370 76% 100ML VIAL (Q9967) As Ordered ONE
--- NOTE | 2019-08-23 12:28 | REP ---
Chest x-ray: Two views. History: Persistent cough. Comparison chest x-ray: July 16, 2018. Findings: There is a Ysaeax-P-Zmkp catheter noted in place with its tip in the expected location of the superior vena cava. A granuloma is seen in the right mid lung zone. The lungs are otherwise well inflated and clear. Heart is not enlarged. The pleural angles are sharp. Pulmonary vasculature is not increased. Impression: No active disease. Ijvbsv-T-Tnwm catheter in place. Electronically Signed by Bakari Peters MD 08/23/2019 12:20 P
== END ==
LOC: M LRY 12:03
PROVIDERS: ATTEND Nurse Practitioner Family
DX: R05 Cough (principal); Z97.8 Presence of other specified devices
CPT/HCPCS: 71046; G0463

== ENCOUNTER → 2020-01-23 | Outpatient (CLI) | payer MEDICARE ==
[~2020-01-23] MED LIST changes: +BACL10TA2 PO; +OMEP1CAP73 PO; -OMEP20CA4 PO; +VITA500079 PO
--- NOTE | 2020-01-23 15:07 | REP ---
WHOLE BODY BONE SCAN: Following the intravenous administration of 22 millicuries technetium 99, MDP, patient's whole body is measured in the anterior and posterior projections with additional oblique and lateral views obtained. There are no prior studies for comparison. There is intense increased uptake in the left acetabulum. There is mild focus of increased uptake in the lower cervical spine. Small focus of mild increased uptake posteriorly on the right at the superior aspect of the L2 vertebral body. Small focus of increased uptake is seen at the posterior right 5th costovertebral junction. There is a focus of mild increased uptake in the posterior right 9th rib. Two adjacent foci of mildly increased uptake are seen in the posterior left 5th rib and two others are seen in the posterior left 10th rib. All of these foci are nonspecific. Metastatic skeletal disease is a possibility. There is arthritic uptake in both shoulders and in the right foot. Renal and bladder activity are seen. IMPRESSION: Several nonspecific foci of increased uptake which could represent metastatic disease to the skeleton. There is an intense area of increased uptake in the left acetabulum. Small focus of increased uptake is seen in the lower cervical spine and another focus of increased uptake is seen in the right posterior L2 vertebral body. Two adjacent foci of increased uptake are seen in the posterior left 5th and also posterior left 10th ribs. Focus of mild increased uptake is seen in the posterior right 9th rib and at the right 5th costovertebral junction. Electronically Signed by Juan Justice MD 01/23/2020 03:27 P
== END ==
LOC: M RAD 10:21
PROVIDERS: ATTEND Internal Medicine Medical Oncology
DX: R97.20 Elevated prostate specific antigen [PSA] (principal); Z85.46 Personal history of malignant neoplasm of prostate; M19.011 Primary osteoarthritis, right shoulder; M19.012 Primary osteoarthritis, left shoulder; M89.9 Disorder of bone, unspecified
CPT/HCPCS: 78306; A9503

== ENCOUNTER → 2020-02-04 | Outpatient (CLI) | payer MEDICARE ==
--- NOTE | 2020-02-05 09:32 | REP ---
PET/CT: HISTORY: Restaging colon carcinoma. Ascending colon. Recent bone scan showed multifocal uptake. Elevated PSA. Question biopsy site. COMPARISONS: Comparison PET/CT studies are from July 23, 2019 and January 08, 2019. TECHNIQUE: 56 minutes following the intravenous injection of a 8.25 mCi dose of F-18 FDG, three-dimensional PET scintigraphy is acquired from the skull base to the proximal thighs. Triplanar noncontrast CT scanning is acquired through the same anatomic range for attenuation correction, and image registration with scan parameters optimized to minimize radiation exposure to the patient. PET scintigraphy and CT datasets were fused and displayed on a workstation with multiplanar and projection display capability. PET/CT FINDINGS: Head and neck soft tissues are unremarkable. No abnormal hypermetabolic uptake is seen within the thoracic cavity. A left-sided Qjydym-S-Edzc catheter is seen. No abnormal hypermetabolic uptake is seen in the abdomen or within the pelvis. No abnormal retroperitoneal everett uptake is seen. There is a left periaortic lymph node without discernible FDP accumulation. This measures 0.4 cm in greatest diameter. No other visible retroperitoneal nodes. The previously noted anterior abdominal wall hematoma seroma has decreased in size considerably. There is minimal uptake within this. There is a multifocal skeletal hypermetabolic uptake pattern consistent with skeletal metastatic disease. The foci of metastatic increased uptake and their corresponding maximum standard uptake values are as follows: Left L4, SUV 8.11 Left anterior L5, 4.86 Right posterior iliac bone, 6.33 Left posterior iliac bone, 4.08 Left superior acetabulum, 8.36 Left anterior acetabulum/superior pubic ramus, SUV 14.33 Left ischium, 7.35 The most avid lesion is at the proximal end of the superior pubic ramus/anterior acetabulum. However, this is not an optimal site for CT guided bone biopsy because of the overlying neurovascular structures. There is a 2.0 cm radiolucent hypermetabolic focus in the right posterior iliac bone and this may be the best biopsy site. IMPRESSION: Skeletal metastatic hypermetabolic uptake pattern as above. A 2 cm lesion in the right posterior iliac bone should be amendable to CT guided needle biopsy if desired. Electronically Signed by Bakari Peters MD 02/05/2020 10:44 A
== END ==
LOC: M PLARAD 14:25
PROVIDERS: ATTEND Internal Medicine Medical Oncology
DX: C18.2 Malignant neoplasm of ascending colon (principal)
CPT/HCPCS: 78815; A9552

== ENCOUNTER → 2020-02-05 | Outpatient (CLI) | payer MEDICARE ==
[~2020-02-05] MED LIST changes: +GASTROGRAFIN SOLUTION 30ML (Q9963) As Ordered ONE; +ISOVUE-370 76% 100ML VIAL As Ordered ONE
--- NOTE | 2020-02-05 14:16 | REP ---
REASON: Followup stage III colon cancer. Colon carcinoma. Latest prior for comparison is 07/30/2019. All other priors were also reviewed. CONTRAST: 100 mL Isovue 370. The patient is status post cholecystectomy, appendectomy, prostatectomy, and ventral herniorrhaphy. The liver and spleen are unchanged and again seen to be within normal limits. The pancreas, adrenal glands, and kidneys are unchanged. Note is again made of bilateral renal parapelvic cysts and right renal cortical cysts status quo. The abdominal aorta and paraaortic regions are again seen to be within normal limits. The bowel loops and their mesenteries are within normal limits. There is no intra-abdominal mass or adenopathy. There is no free fluid or free air. The large seroma seen along the ventral abdominal wall has gotten significantly smaller and more dense. Today, it measures approximately 6.6 x 4 x 3.8 cm as a maximal dimensions. CT PELVIS: The bowel loops and their mesenteries are within normal limits. There is mass or adenopathy. There is no free fluid or free air. Bone window technique throughout the exam shows spinal and left hip degenerative changes status quo. IMPRESSION: There is no evidence of acute intra-abdominal or intrapelvic disease. Anterior abdominal wall and other chronic changes as described above. Electronically Signed by Reginald Nazario DO 02/05/2020 03:55 P
--- NOTE | 2020-02-05 14:45 | REP ---
REASON: History of colon carcinoma. All prior chest CTs have been reviewed, the latest of which is dated 10/04/2018. CONTRAST: 100 mL Isovue 370. Stable nonenlarged mediastinal lymph nodes are noted status quo. There are no pleural or pericardial effusions. Evaluation of the osseous structures shows a somewhat blastic appearing lesion in the vertebral body of L2 on the right which is essentially unchanged from 07/30/2019. Evaluation of the lung cummings show a tiny but new pleural-based 4 mm sized nodule in the right lower lobe. In the deep white CP angle, there is an additional small but new 7 mm sized pleural based nodule, however, this has central calcification. There are other incidental calcified granulomas bilaterally. In the left lower lobe, there appears to be an enhancing 7 mm sized nodule which represents a change from the prior exam. There is cylindrical bronchiectasis status quo. IMPRESSION: 1. Multiple pulmonary nodules as described above. The possibly enhancing nodule seen in the left lower lobe is of particular concern and I cannot rule out pulmonary metastasis. Previous CT/PET of 02/04/2020 showed no abnormal lung hypermetabolic activity, however, I would suggest a 3-month followup PET/CT if clinically relevant. 2. Other findings as described above. Electronically Signed by Reginald Nazario DO 02/05/2020 03:55 P
== END ==
LOC: M RAD 11:01
PROVIDERS: ATTEND Internal Medicine Medical Oncology
DX: C18.9 Malignant neoplasm of colon, unspecified (principal); R91.8 Other nonspecific abnormal finding of lung field
CPT/HCPCS: 71260; 74177; Q9963; Q9967

== ENCOUNTER 2020-02-27 12:04 | Emergency (ER) | payer MEDICARE ==
[~2020-02-27] VITALS: Ht 180.3 cm; Wt 117.4 kg
[~2020-02-27 12:04] MED LIST changes: +CELE1CAP4 PO; -GASTROGRAFIN SOLUTION 30ML (Q9963) As Ordered ONE; -ISOVUE-370 76% 100ML VIAL As Ordered ONE
[2020-02-27] MEDS ORDERED: AMOX500C (12:12)
[2020-02-27] MEDS ORDERED: PERI12LIQ (12:12)
[2020-02-27] MEDS ORDERED: ISOVUE-370 76% 100ML VIAL As Ordered ONE (14:38)
[2020-02-27 15:13] LABS: BASO # 0.1 10^3/uL (0.0-0.2); EOS # 0.3 10^3/uL (0.0-0.5); EOS % 4.6 % (0.0-3.0); HEMOGLOBIN 12.6 g/dl (13.5-17.5); LYMPH # 1.4 10^3/uL (1.5-5.0); LYMPH % 20.2 % (24.0-44.0); MEAN CORPUSCULAR HEMOGLOBIN 26.1 pg (27.0-33.0); MEAN CORPUSCULAR HGB CONC 30.7 g/dl (32.0-36.5); MEAN CORPUSCULAR VOLUME 85.1 fl (80.0-96.0); MONO # 0.7 10^3/uL (0.0-0.8); NEUTROPHILS # 4.3 10^3/uL (1.5-8.5); NEUTROPHILS % 63.6 % (36.0-66.0); PLATELET COUNT, AUTOMATED 223 10^3/uL (150-450); RED BLOOD COUNT 4.82 10^6/uL (4.30-6.10); WHITE BLOOD COUNT 6.7 10^3/uL (4.0-10.0)
[2020-02-27 15:27] LABS: ALBUMIN 3.8 GM/DL (3.2-5.2); BILIRUBIN,DIRECT 0.2 MG/DL (0.0-0.2); BILIRUBIN,TOTAL 0.5 MG/DL (0.2-1.0); INR 1.56; PROTHROMBIN TIME 18.4 SECONDS (11.8-14.0); TOTAL PROTEIN 7.1 GM/DL (6.4-8.2)
[2020-02-27 15:28] LABS: PARTIAL THROMBOPLASTIN TIME 38.1 SECONDS (25.0-38.4)
--- NOTE | 2020-02-27 15:29 | REP ---
CT ANGIOGRAM CHEST: TECHNIQUE: Axial contrast-enhanced images from the thoracic inlet to the upper abdomen using 100 mL Isovue-370 intravenous contrast material with multiplanar reformations. COMPARISON: CT 02/05/2020 There are a few scattered calcified granulomas in both lungs. There are a few scattered subcentimeter nodular opacities again seen in both lungs. All of these are stable compared to the prior CT. There is mild bibasilar fibroatelectatic change. There may be some mild interstitial edema or infiltrate in both lower lobes. There is no thoracic or aortic aneurysm or dissection. There is no pulmonary embolism. The heart is upper limits of normal to slightly enlarged. There is no pleural or pericardial effusion. There is no mediastinal, hilar or chest wall lymphadenopathy. There is a small hiatal hernia. There are tiny calcified granulomas in the liver and spleen. The patient has had a prior cholecystectomy. There are mild degenerative changes of the spine. IMPRESSION: No CT evidence of pulmonary embolism or aortic dissection. Small hiatal hernia. Stable calcified granulomas and subcentimeter pulmonary nodules bilaterally compared to the prior study of 02/05/2020. There is bibasilar fibroatelectatic change with possible mild bibasilar interstitial edema or infiltrate. Electronically Signed by Juan Justice MD 02/27/2020 05:06 P
[2020-02-27] MEDS ORDERED: PERCOCET 5MG/325MG TAB PO ONE (15:30)
[2020-02-27 15:54] LABS: ERYTHROCYTE SEDIMENTATION RATE 33 mm/hr (0-20)
[2020-02-27] MEDS ORDERED: FUROSEMIDE 20 MG TAB PO ONE (16:30)
[2020-02-27 16:41] VITALS: BP 155/81
[2020-02-27] MEDS ORDERED: ACET-683 PO (16:54)
[2020-02-27] MEDS ORDERED: LASI40TA9 PO (16:58)
[2020-02-27] MEDS ORDERED: PERC5TAB12 PO (16:58)
[2020-03-10] MEDS ORDERED: PRED5PAK PO (14:39)
[2020-03-11] MEDS ORDERED: PROC10TA4 PO (13:52)
[2020-03-11] MEDS ORDERED: ONDA8TAB10 PO (13:52)
== END 2020-02-27 17:02 | disposition home or self-care (01) ==
LOC: M ED 12:04
DX: J81.1 Chronic pulmonary edema (principal); R07.1 Chest pain on breathing; I10 Essential (primary) hypertension; E78.5 Hyperlipidemia, unspecified; Z86.718 Personal history of other venous thrombosis and embolism; J44.9 Chronic obstructive pulmonary disease, unspecified; Z85.048 Personal history of other malignant neoplasm of rectum, rectosigmoid junction, and anus; Z85.46 Personal history of malignant neoplasm of prostate; Z91.048 Other nonmedicinal substance allergy status; Z88.8 Allergy status to other drugs, medicaments and biological substances; Z79.899 Other long term (current) drug therapy; Z79.01 Long term (current) use of anticoagulants
CPT/HCPCS: 71275; 80047; 80076; 83880; 85025; 85610; 85652; 85730; 86140; 99284; Q9967

== ENCOUNTER → 2020-03-02 | Outpatient (CLI) | payer MEDICARE ==
[~2020-03-02] MED LIST changes: +ACET-683 PO; +AMOX500C; +LASI40TA9 PO; +LIDOCAINE 1% MDV 20ML VIAL As Ordered ONE; +ONDA8TAB10 PO; +PERC5TAB12 PO; +PERI12LIQ; +PRED5PAK PO
[2020-03-02 10:45] VITALS: BP 146/66
--- NOTE | 2020-03-02 17:15 | REP ---
CT-guided right iliac bone biopsy The procedure was performed under the direct supervision of Dr. Justice. The patient has a history of A 2 cm lesion in the right posterior iliac bone seen on a previous PET scan dated 02/04/2020. The risks and benefits of the procedure were explained to the patient and informed consent was obtained. The right iliac bone lesion was localized using CT guidance. The skin was prepped and draped in a sterile fashion. 1% lidocaine was used as a local anesthetic. Using CT guidance a 15-gauge coaxial needle biopsy system was inserted and advanced into the lesion. Eight passes were made yielding multiple cores and aspirate. All samples were sent to the lab for analysis. The patient tolerated the procedure well and there were no immediate complications. After the appropriate amount of monitored convalescence the patient was discharged from the department. Electronically Signed by BHARATH Royal 03/02/2020 04:20 P Electronically Signed by Juan Justice MD 03/02/2020 05:04 P
== END ==
LOC: M IRPRO 08:23
PROVIDERS: ATTEND Internal Medicine Medical Oncology
DX: C79.51 Secondary malignant neoplasm of bone (principal); C61 Malignant neoplasm of prostate

== ENCOUNTER 2020-06-21 15:04 | Inpatient (IN) | payer MEDICARE ==
[~2020-06-21] VITALS: Ht 180.3 cm; Wt 116.6 kg
[~2020-06-21 15:04] MED LIST changes: -LIDOCAINE 1% MDV 20ML VIAL As Ordered ONE
[2020-06-21 15:39] LABS: HEMATOCRIT 37.6 % (42.0-52.0); HEMOGLOBIN 11.8 g/dl (13.5-17.5); MEAN CORPUSCULAR HEMOGLOBIN 29.5 pg (27.0-33.0); MEAN CORPUSCULAR HGB CONC 31.4 g/dl (32.0-36.5); PLATELET COUNT, AUTOMATED 199 10^3/uL (150-450)
[2020-06-21 15:49] LABS: INR 1.68; PROTHROMBIN TIME 20.2 SECONDS (12.5-14.3)
[2020-06-21 15:50] LABS: PARTIAL THROMBOPLASTIN TIME 32.5 SECONDS (24.2-38.5)
[2020-06-21 16:05] LABS: LYMPHOCYTES 15 % (16-44); MONOCYTES 2 % (0-5); NEUTROPHILS 80 % (28-66)
--- NOTE | 2020-06-21 16:05 | ECGEPIP ---
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
[2020-06-21 16:06] LABS: ANISOCYTOSIS 2+; TEAR DROP CELLS 1+
--- NOTE | 2020-06-21 16:06 | REPVR ---
PROCEDURE INFORMATION: Exam: XR Chest, 2 Views Exam date and time: 06/21/2020 3:52 PM Age: 75 years old Clinical indication: Chest pain TECHNIQUE: Imaging protocol: XR of the chest Views: 2 views. COMPARISON: CT Chest with contrast 02/05/2020 1:05 PM FINDINGS: Tubes, catheters and devices: External monitoring devices present. Lungs: Calcified granuloma right lower lobe Pleural space: Unremarkable. No pleural effusion. No pneumothorax. Heart/Mediastinum: Unremarkable. No cardiomegaly. Vasculature: Distal tip of a left internal jugular line projects in expected location of superior vena cava Bones/joints: Healed rib fracture left posterior 5th rib. IMPRESSION: No acute findings Electronically signed by: Patricia Davila On 06/21/2020 16:06:46 PM
[2020-06-21 16:07] LABS: TOXIC GRANULATION 1+
[2020-06-21 16:08] LABS: PLATELET ESTIMATE NORMAL (NORMAL)
[2020-06-21 16:18] LABS: ALBUMIN 3.4 GM/DL (3.2-5.2); ALT/SGPT 21 U/L (12-78); BILIRUBIN,DIRECT 0.2 MG/DL (0.0-0.2); BILIRUBIN,TOTAL 0.9 MG/DL (0.2-1.0); BLOOD UREA NITROGEN 26 MG/DL (7-18); CALCIUM LEVEL 9.4 MG/DL (8.8-10.2); CARBON DIOXIDE LEVEL 25 MEQ/L (21-32); CHLORIDE LEVEL 104 MEQ/L (98-107); CK-MB VALUE MASS 1.4 NG/ML (<3.6); CPK CREATINE PHOSPHOKINASE 76 U/L (39-308); CREATININE FOR GFR 1.66 MG/DL (0.70-1.30); FREE T4 1.06 NG/DL (0.76-1.46); GLOMERULAR FILTRATION RATE 43.1 (>42); GLUCOSE, FASTING 133 MG/DL (70-100); LIPASE 53 U/L (73-393); MB/CK RELATIVE INDEX 1.84 (< OR =4); POTASSIUM SERUM 4.8 MEQ/L (3.5-5.1); SODIUM LEVEL 136 MEQ/L (136-145); TOTAL PROTEIN 6.4 GM/DL (6.4-8.2); TROPONIN I < 0.02 NG/ML (< 0.10)
--- NOTE | 2020-06-21 17:55 | REPVR ---
PROCEDURE INFORMATION: Exam: CT Chest Without Contrast Exam date and time: 06/21/2020 5:19 PM Age: 75 years old Clinical indication: Chest pain TECHNIQUE: Imaging protocol: Computed tomography of the chest without contrast. 3D rendering (Not supervised by radiologist): MIP and/or 3D reconstructed images were created by the technologist. Radiation optimization: All CT scans at this facility use at least one of these dose optimization techniques: automated exposure control; mA and/or kV adjustment per patient size (includes targeted exams where dose is matched to clinical indication); or iterative reconstruction. COMPARISON: CT Chest with contrast 02/05/2020 1:05 PM FINDINGS: Tubes, catheters and devices: Pacemaker wires via left internal jugular vein and brachiocephalic vein terminate at the level of the superior vena cava. Lungs: 4.9 mm ground-glass nodule right upper lobe (series 201, image 47). Calcified granuloma is right lower lobe. Pleural based nodule right middle lobe (series 201, image 56). ground-glass nodule right upper lobe measuring 3.4 mm (series 201, image 39). 5.4 mm nodule left lower lobe (series 201, image 84, previous 5.6 mm)) Pleural space: Unremarkable. No pneumothorax. No pleural effusion. Heart: Coronary artery stent. Mediastinal space: Small sliding hiatal hernia. Aorta: Unremarkable. No aortic aneurysm. Lymph nodes: Lymph node in the prevascular space anterior mediastinum measuring 0.9 x 0.7 cm. Calcified hilar lymph nodes. Liver: Hepatic granulomas. Spleen: Splenic granulomas. 1.6 cm accessory spleen anterior to the splenic hilum. Kidneys and ureters: 2.6 cm low-density lesion (6 H ) mid right kidney. Dilated calyx versus parapelvic cyst upper pole right kidney. Bones/joints: Fracture of the left posterolateral 5th rib . The density of the left posterior 5th rib medial to the location of fracture is somewhat heterogeneous with a suggestion of cortical thinning along the inferior margin of the rib which raises the possibility of a pathologic fracture. Fracture of the left posterior 10th rib. Healed or healing fracture of the right lateral 4th rib Soft tissues: Battery pack implanted within the soft tissues of the left anterior chest wall. Surgical clips anterior abdominal wall. IMPRESSION: 1. Fractures of the left 5th and 10th ribs as described above. Heterogeneous density of the left 5th rib adjacent to the area fracture suggests the possibility of pathologic fracture. 2. Healed or healing fracture of the right lateral 4th rib. 3. Bilateral pulmonary nodules. These are unchanged from the most recent study but were not present on the October 04, 2018 study. These findings are suspicious for metastatic disease. Electronically signed by: Patricia Davila On 06/21/2020 17:55:00 PM
[2020-06-21] MEDS ORDERED: NS 1,000 ML IV SCH (17:58)
[2020-06-21] MEDS ORDERED: ACETAMINOPHEN TAB 650MG DOSE (2X325MG) PO PRN (19:45)
[2020-06-21] MEDS ORDERED: PRED5TA PO (19:48)
[2020-06-21] MEDS ORDERED: ACETAMINOPHEN 500 MG TAB PO PRN (21:00)
[2020-06-21 21:20] VITALS: BP 121/66
[2020-06-21] MEDS: PANTOPRAZOLE 40MG VIAL (C9113 PER 1) IV SCH (21:55)
[2020-06-21] MEDS: SUCRALFATE 1 GM TAB PO SCH (21:55)
[2020-06-21] MEDS: METOPROLOL TART 25 MG TABLET PO SCH (21:56)
[2020-06-21] MEDS: predniSONE 5 MG TAB PO SCH (21:56)
[2020-06-21] MEDS: NS 1,000 ML IV SCH (21:56)
--- NOTE | 2020-06-21 23:11 | HPEPDOC ---
[facility] Medical History & Physical Date of Admission Jun 21, 2020 Date of Service: Jun 21, 2020 Attending Physician: BYRON UREÑA MD History and Physical CHIEF COMPLAINT: Episodic substernal chest pain radiating to shoulders HISTORY OF PRESENT ILLNESS: 75-year-old M with metastatic prostate CA s/p prostatectomy & radiation, currently on docetaxel, cycle 5 on 06/[address] Hillman, Colon CA s/p hemicolectomy and chemotherapy, CAD s/p PCI, HTN, HLD, Pre-DM, who presented to [facility] with central chest pain with burning and radiating to both shoulders that was exacerbated by any PO both liquids and solids, no clearly correlated with exertion. Initially it was reported to be substernal and constant but later described as above. Of note, his pain had resolved by the time he presented to the ED. While in the ED he was hemodynamically stable, afebrile, breathing comfortably on room air. He otherwise denied any recent fever, chills, cough, rhinorrhea, congestion, hemoptysis, nausea, emesis, diarrhea, constipation, hematemesis, hematochezia or melena. Work up was notable for non ischemic EKG with sinus tach, negative troponin, hgb 11.8, WBC 8 with 80% PMNs and 3% bands, platelets 199, na 136, K 4.8, elevated BUN/Cr 26/1.66, LFTs and lipase wnl, TSH and free T4 wnl. He had a CXR what showed no acute pathology and had a follow up noncontrast CT chest that showed new potential pathological fractures of the 5th and 10th rib, as well as an old healing fracture of the 4th rib and bilateral pulmonary nodules that appear stable from the most recent scan on file, without otherwise any opacities or effusions. Given the atypical nature of his chest pain, Dr. Kaur called Dr. Louis who did not suspect ACS given non ischemic EKG, negative troponin and self resolution and recommended admission for observation. He is now being admitted to medicine for YOLANDE and possible worsening GERD symptoms in the setting of celecoxib and chronic prednisone and dehydration in the setting of poor PO . Past Medical History Colon CA (Dx 2017; s/p hemicolectomy and chemotherapy) Prostate CA (s/p prostatectomy & radiation, on docetaxel, completed cycle 5 on 06/[address] Hillman CAD s/p PCI(2013) HTN HLD Pre-DM History of LE DVT Surgical History Cholecystectomy Appendectomy Lower back surgery C s/p PCI Family History Noncontributory Social History - Denies the use of alcohol, tobacco or illicit drugs. Remote smoking history. - Denies recent travel or sick contacts. - Lives with at [place]. Review of Systems 10 point review of systems complete, all negative otherwise stated in HPI Physical Examination: Vitals: Hemodynamically stable, afebrile, saturating >92% on room air General: Lying in bed, No acute distress, Speaking in full sentences, AAOx3 HEENT: NC, AT, PERRLA, EOMI CVS: RRR, +S1S2, no noted murmurs Lungs: Clear to auscultation, No wheezing, rales or rhonchi Abdomen: Normoactive sounds, soft, epigastric discomfort with palpation, otherwise negative Ramirez's sign, no rebound tenderness and no fluid wave Extremities: No lower extremity edema, No calf tenderness, 2+ DP pulses. Neuro: No focal motor or sensory deficit, CN 2-12 intact, speech not dysarthric Skin: No noted rashes or open lesions Assessment: 75-year-old M with metastatic prostate CA s/p prostatectomy & radiation, currently on docetaxel, cycle 5 on 06/[address] Hillman, Colon CA s/p hemicolectomy and chemotherapy, CAD s/p PCI, HTN, HLD, Pre-DM, who presented to [facility] with central chest pain with burning and radiating to both shoulders that was exacerbated by PO without evidence of ACS now being admitted to medicine for YOLANDE and possible worsening GERD vs. gastritis in the setting of celecoxib and chronic prednisone, and dehydration in the setting of poor PO . Plan Dehydration with hypotension and tachycardia without evidence of infection -No evidence of true leukocytosis without marcos bandemia, 3%, monitor CBC -UA -BCx -CXR and CT chest without evidence of infection -NS @ 100cc/hr -Lactate 2.7 Chest pain likely GERD vs. gastritis i/s/o celecoxib and prednisone. Mr. Lara is anxious about potential ACS and reported prior history of non-ischemic EKGs, troponin wnl, unremarkable stress tests with eventual +LHC for which he required multiple stents c/b thromboses for which he had more stents. He even initially wondered if he should be directly transferred to [place] in the event that he needs to go to the label folder but after much discussion and articulating that at this time, there is no evidence that his pain is 2/2 ACS and that even at [place] they would unlikely recommend catheterization at this time, he finally agreed to [facility] admission. -protonix IV BID for now -sucralfate TID -EKG was non ischemic -Troponin was negative -Telemetry -CT chest showed some rib fractures that may be pathologic, as well as pulmonary nodules -Patient already on therapeutic rivaroxaban Acute on chronic CKD3 - Likely 2/2 Pre-renal etiology -Will continue with IV fluid hydration and check AM BMP -Will hold off urine lytes and imaging for now Macrocytic anemia - Patient takes iron, sedimentation as an outpatient, will continue the same - Hemoglobin appears to be at baseline Colon CA - Dx 2016; s/p hemicolectomy and on Chemotherapy - Dr. Dorothea Nava on consultation Metastatic prostate CA - s/p prostatectomy & radiation, docetaxel, cycle 5 on 06/16/[address] Hillman - Day team to CRESENCIO Hillman about the acute likely pathological fractures. No pain at this time CAD s/pPCI - c/w ASA 81 and Pravastatin - Telemetry given recent chest pain - EKG was non ischemic - Troponin was negative HTN - Will hold Lisinopril with mild hypotension i/s/o dehydration - c/w Metoprolol with holding parameters HLD - c/w Pravastatin Pre-DM2 - stable and normoglycemic GERD - c/w Omeprazole History of LE DVT - c/w rivaroxaban DVT prophylaxis - on rivaroxaban Dispo: medsurg with tele Vital Signs Vital Signs Date Time Temp Pulse Resp B/P (MAP) Pulse Ox O2 Delivery O2 Flow Rate FiO2 06/21/20 15:34 06/21/20 15:05 97.1 110 24 96 Room Air Laboratory Data Labs 24H Laboratory Tests 2 06/21/20 15:23: Immature Granulocyte % (Auto) , Neutrophils (%) (Auto) , Nucleated Red Blood Cells % (auto) 0.0, Neutrophils 80H, Band Neutrophils 3, Lymphocytes (Manual) 15L, Monocytes (Manual) 2, Anisocytosis 2+, Tear Drop Cells 1+, Toxic Granulation 1+, Platelet Estimate NORMAL, Prothrombin Time 20.2H, Prothromb Time International Ratio 1.68, Activated Partial Thromboplast Time 32.5, Anion Gap 7L, Glomerular Filtration Rate 43.1, Calcium Level 9.4, Total Bilirubin 0.9, Direct Bilirubin 0.2, Aspartate Amino Transf (AST/SGOT) 19, Alanine Aminotransfe rase (ALT/SGPT) 21, Alkaline Phosphatase 98, Total Creatine Kinase 76, Creatine Kinase MB 1.4, Creatine Kinase MB Relative Index 1.84, Troponin I < 0.02, Total Protein 6.4, Albumin 3.4, Albumin/Globulin Ratio 1.1, Lipase 53L, Thyroid Stimulating Hormone (TSH) 1.890, Free Thyroxine 1.06 06/21/20 17:29: Lactic Acid Level 2.7*H 06/21/20 19:03: Urine Color YELLOW, Urine Appearance HAZY, Urine pH 5.0, Urine Specific [place] 1.019, Urine Protein NEGATIVE, Urine Glucose (UA) NEGATIVE, Urine Ketones NEGATIVE, Urine Blood NEGATIVE, Urine Nitrite NEGATIVE, Urine Bilirubin NEGATIVE, Urine Urobilinogen 0.2, Urine Leukocyte Esterase NEGATIVE, Urine WBC (Auto) 1, Urine RBC (Auto) 1, Urine Hyaline Casts (Auto) 0, Urine Bacteria (Auto) NEGATIVE, Urine Squamous Epithelial Cells 0, Urine Mucus (Auto) SMALL, Urine Sperm (Auto) CBC/BMP Laboratory Tests 06/21/20 15:23 Microbiology Microbiology 06/21/20 Blood Culture, Received Pending 06/21/20 Blood Culture, Received Pending Home Medications Scheduled Furosemide (Furosemide) 20 Mg Tab, 20 MG PO DAILY Lisinopril (Lisinopril) 20 Mg Tab, 20 MG PO DAILY Metoprolol Tartrate (Metoprolol Tartrate) 25 Mg Tab, 25 MG PO BID Omeprazole (Omeprazole) 20 Mg Cap, 20 MG PO DAILY Potassium Chloride (Potassium Chloride) 10 Meq Tab, 10 MEQ PO DAILY Pravastatin Sodium (Pravastatin Sodium) 40 Mg Tab, 40 MG PO DAILY Prednisone (Prednisone) 5 Mg Tablet, 5 MG PO BID Rivaroxaban (Xarelto) 20 Mg Tab, 20 MG PO DAILY with food Scheduled PRN Acetaminophen (Acetaminophen) 500 Mg Tablet, 1,000 MG PO Q6H PRN for BACK PAIN Celecoxib (Celebrex) 200 Mg Capsule, 200 MG PO DAILY PRN for PAIN Allergies Coded Allergies: adhesive tape (Verified Allergy, Intermediate, Rash, 4/2/19) atorvastatin (Verified Adverse Reaction, Intermediate, Myalgia, 01/01/19) diphenhydramine (Verified Adverse Reaction, Mild, Hyperactive, 01/01/19) ropinirole (Verified Adverse Reaction, Mild, Insomnia, 01/01/19) A-FIB/CHADSVASC A-FIB History Current/History of A-Fib/PAF?: No Current PO Anticoag Therapy: Yes Age/Risk Factor Scoring CHADSVASC: CHADSVASC Response (Comments) Value Age Risk Factor Age >/= 75 years old 2 Gender Risk Factor Male 0 Hx of CHF No 0 Hx of HTN Yes 1 Hx of Stroke/TIA/or VTE No 0 Hx of Diabetes No 0 Hx of Vascular Disease Yes 1 Total 4 Treatment Treatment ordered: Rivaroxaban BYRON UREÑA MD Jun 21, 2020 19:42
[2020-06-22] MEDS: NS 1,000 ML IV SCH (04:55)
[2020-06-22 06:00] VITALS: BP 124/63
[2020-06-22 06:43] LABS: HEMOGLOBIN 9.8 g/dl (13.5-17.5); MEAN CORPUSCULAR HEMOGLOBIN 29.3 pg (27.0-33.0); MEAN CORPUSCULAR HGB CONC 30.6 g/dl (32.0-36.5); MEAN CORPUSCULAR VOLUME 95.5 fl (80.0-96.0); PLATELET COUNT, AUTOMATED 147 10^3/uL (150-450); RED BLOOD COUNT 3.35 10^6/uL (4.30-6.10); WHITE BLOOD COUNT 4.6 10^3/uL (4.0-10.0)
[2020-06-22 07:13] LABS: CALCIUM LEVEL 8.1 MG/DL (8.8-10.2); CREATININE FOR GFR 1.31 MG/DL (0.70-1.30); GLOMERULAR FILTRATION RATE 56.6 (>42); MAGNESIUM LEVEL 1.9 MG/DL (1.8-2.4); POTASSIUM SERUM 4.4 MEQ/L (3.5-5.1)
[2020-06-22] MEDS: PANTOPRAZOLE 40MG VIAL (C9113 PER 1) IV SCH (08:26)
[2020-06-22] MEDS: predniSONE 5 MG TAB PO SCH (08:29)
[2020-06-22] MEDS: SUCRALFATE 1 GM TAB PO SCH (08:30)
[2020-06-22 08:31] VITALS: BP 122/78
[2020-06-22] MEDS: METOPROLOL TART 25 MG TABLET PO SCH (08:31)
[2020-06-22] MEDS ORDERED: RIVAROXABAN 20 MG TAB (XARELTO) PO SCH (09:00)
[2020-06-22] MEDS ORDERED: PRAVASTATIN 20 MG TAB PO SCH (09:00)
[2020-06-22] MEDS ORDERED: SUCR1TA PO (10:39)
[2020-06-22] MEDS ORDERED: ASPI81TA86 PO (10:39)
--- NOTE | 2020-06-22 10:46 | DS.PDOC ---
Discharge Summary General Date of Admission Jun 21, 2020 at 19:32 Date of Discharge CHIEF COMPLAINT: Episodic substernal chest pain radiating to shoulders Final diagnosis Chest pain ACS ruled out History of present illness and Hospital course 75-year-old M with metastatic prostate CA s/p prostatectomy & radiation, currently on docetaxel, cycle 5 on 06/[address] Hillman, Colon CA s/p hemicolectomy and chemotherapy, CAD s/p PCI, HTN, HLD, Pre-DM, who presented to [facility] with central chest pain with burning and radiating to both shoulders that was exacerbated by any PO both liquids and solids, no clearly correlated with exertion. his pain had resolved by the time he presented to the ED. While in the ED he was hemodynamically stable, afebrile, breathing comfortably on room air. He otherwise denied any recent fever, chills, cough, rhinorrhea, congestion, hemoptysis, nausea, emesis, diarrhea, constipation, hematemesis, hematochezia or melena. Work up was notable for non ischemic EKG with sinus tach, negative tro ponin, hgb 11.8, LFTs and lipase wnl, TSH and free T4 wnl. He had a CXR what showed no acute pathology and had a follow up noncontrast CT chest that showed new potential pathological fractures of the 5th and 10th rib, as well as an old healing fracture of the 4th rib and bilateral pulmonary nodules that appear stable from the most recent scan on file, without otherwise any opacities or effusions. Given the atypical nature of his chest pain, Dr. Kaur called Dr. Louis who did not suspect ACS given non ischemic EKG, negative troponin and self resolution and recommended admission for observation. This all could have been related to possible worsening GERD symptoms in the setting of celecoxib and chronic prednisone . I have started him on sucralfate along with he has been advised to continue his omeprazole. His celecoxib has been discontinued and aspirin has been added as he has had long history of coronary artery disease with PCI's as well as +C for which he required multiple stents c/b thromboses for which he had more stents . Given this severe history of coronary artery disease. His aspirin has been restarted and I have given him the risks and benefits of combining aspirin with an anticoagulation. He understands the risks and will be discharged home as his ACS has been ruled out. Also, he has been advised that if his symptoms reoccur. He will probably require an endoscopy for which he has been given a follow-up appointment with PCP in 1 week. He continues to be on Eliquis for his lower extremities DVT. For his Metastatic prostate CA s/p prostatectomy & radiation, docetaxel, cycle 5 on 06/16/[address] Hillman. He has been advised to follow with Dr. Hillman about the acute likely pathological fractures.. He understands and wants to be discharged home with further testing and recommendations as outpatient. Physical Examination: Vitals: Hemodynamically stable, afebrile, saturating >92% on room air General: Lying in bed, No acute distress, Speaking in full sentences, AAOx3 HEENT: NC, AT, PERRLA, EOMI CVS: RRR, +S1S2, no noted murmurs Lungs: Clear to auscultation, No wheezing, rales or rhonchi Abdomen: Normoactive sounds, soft, epigastric discomfort with palpation, otherwise negative Ramirez's sign, no rebound tenderness and no fluid wave Extremities: No lower extremity edema, No calf tenderness, 2+ DP pulses. Neuro: No focal motor or sensory deficit, CN 2-12 intact, speech not dysarthric Skin: No noted rashes or open lesions Mediictations. As per discharge reconciliation medication list Activity as tolerated Diet. 2 g sodium diet Follow-up appointments. PCP in [address] dorantes noted as scheduled Condition on discharge. Patient is medically optimized for discharge Discharge disposition: Home Total time spent on this discharge including coordination of care, review of chart documentation and actual patient contact is around 35 minutes Discharge Summary PROCEDURES PERFORMED DURING STAY: [None]. ADMITTING DIAGNOSES: 1. . DISCHARGE DIAGNOSES: 1. . COMPLICATIONS/CHIEF COMPLAINT: Chest Pain,Pleuritic. HISTORY OF PRESENT ILLNESS: . HOSPITAL COURSE: . DISCHARGE MEDICATIONS: Please see below. ALLERGIES: Please see below. PHYSICAL EXAMINATION ON DISCHARGE: VITAL SIGNS: Please see below. GENERAL: HEENT: NECK: CARDIOVASCULAR EXAMINATION: RESPIRATORY EXAMINATION: ABDOMINAL EXAMINATION: EXTREMITIES: SKIN: NEUROLOGICAL EXAMINATION: PSYCHIATRIC EXAMINATION: LABORATORY DATA: Please see below. IMAGING: PROGNOSIS: ACTIVITY: [As tolerated]. DIET: DISCHARGE PLAN: DISPOSITION: . DISCHARGE INSTRUCTIONS: 1. . ITEMS TO FOLLOWUP ON ON OUTPATIENT: 1. . DISCHARGE CONDITION: [Stable]. TIME SPENT ON DISCHARGE: Greater than minutes. Vital Signs/I&Os Vital Signs Date Time Temp Pulse Resp B/P (MAP) Pulse Ox O2 Delivery O2 Flow Rate FiO2 06/22/20 08:31 89 122/78 06/22/20 06:00 98.5 18 95 Room Air I&O- Last 24 Hours up to 6 AM 06/22/20 05:59 Intake Total 750 ml Output Total 0 ml Balance 750 ml Laboratory Data Labs 24H Laboratory Tests 2 06/21/20 15:23: Immature Granulocyte % (Auto) , Neutrophils (%) (Auto) , Nucleated Red Blood Cells % (auto) 0.0, Neutrophils 80H, Band Neutrophils 3, Lymphocytes (Manual) 15L, Monocytes (Manual) 2, Anisocytosis 2+, Tear Drop Cells 1+, Toxic Granulation 1+, Platelet Estimate NORMAL, Prothrombin Time 20.2H, Prothromb Time International Ratio 1.68, Activated Partial Thromboplast Time 32.5, Anion Gap 7 L, Glomerular Filtration Rate 43.1, Calcium Level 9.4, Total Bilirubin 0.9, Direct Bilirubin 0.2, Aspartate Amino Transf (AST/SGOT) 19, Alanine Aminotransferase (ALT/SGPT) 21, Alkaline Phosphatase 98, Total Creatine Kinase 76, Creatine Kinase MB 1.4, Creatine Kinase MB Relative Index 1.84, Troponin I < 0.02, Total Protein 6.4, Albumin 3.4, Albumin/Globulin Ratio 1.1, Lipase 53L, Thyroid Stimulating Hormone (TSH) 1.890, Free Thyroxine 1.06 06/21/20 17:29: Lactic Acid Level 2.7*H 06/21/20 19:03: Urine Color YELLOW, Urine Appearance HAZY, Urine pH 5.0, Urine Specific [place] 1.019, Urine Protein NEGATIVE, Urine Glucose (UA) NEGATIVE, Urine Ketones NEGATI VE, Urine Blood NEGATIVE, Urine Nitrite NEGATIVE, Urine Bilirubin NEGATIVE, Urine Urobilinogen 0.2, Urine Leukocyte Esterase NEGATIVE, Urine WBC (Auto) 1, Urine RBC (Auto) 1, Urine Hyaline Casts (Auto) 0, Urine Bacteria (Auto) NEGATIVE, Urine Squamous Epithelial Cells 0, Urine Mucus (Auto) SMALL, Urine Sperm (Auto) 06/21/20 22:05: Lactic Acid Followup at 4 Hours 1.9 06/22/20 06:26: Nucleated Red Blood Cells % (auto) 0.0, Anion Gap 7L, Glomerular Filtration Rate 56.6, Calcium Level 8.1L, Magnesium Level 1.9 CBC/BMP Laboratory Tests 06/21/20 15:23 06/22/20 06:26 Microbiology Microbiology 06/21/20 Blood Culture, Received Pending 06/21/20 Blood Culture, Received Pending Discharge Medications Scheduled Aspirin (Aspir 81) 81 Mg Tablet.dr, 1 TAB PO DAILY for pain Furosemide (Furosemide) 20 Mg Tab, 20 MG PO DAILY, (Reported) Lisinopril (Lisinopril) 20 Mg Tab, 20 MG PO DAILY, (Reported) Metoprolol Tartrate (Metoprolol Tartrate) 25 Mg Tab, 25 MG PO BID, (Reported) Omeprazole (Omeprazole) 20 Mg Cap, 20 MG PO DAILY, (Reported) Potassium Chloride (Potassium Chloride) 10 Meq Tab, 10 MEQ PO DAILY, (Reported) Pravastatin Sodium (Pravastatin Sodium) 40 Mg Tab, 40 MG PO DAILY, (Reported) Prednisone (Prednisone) 5 Mg Tablet, 5 MG PO BID, (Reported) Rivaroxaban (Xarelto) 20 Mg Tab, 20 MG PO DAILY, (Reported) with food Sucralfate (Sucralfate) 1 Gm Tablet, 1 TAB PO QID Scheduled PRN Acetaminophen (Acetaminophen) 500 Mg Tablet, 1,000 MG PO Q6H PRN for BACK PAIN, (Reported) Allergies Coded Allergies: adhesive tape (Verified Allergy, Intermediate, Rash, 01/01/19) atorvastatin (Verified Adverse Reaction, Intermediate, Myalgia, 01/01/19) diphenhydramine (Verified Adverse Reaction, Mild, Hyperactive, 01/01/19) ropinirole (Verified Adverse Reaction, Mild, Insomnia, 01/01/19) HERMAN SÁNCHEZ MD Jun 22, 2020 10:46
[2020-07-28] MEDS ORDERED: CHLO0.124 MT (08:20)
[2020-07-28] MEDS ORDERED: CALC600T57 PO (08:20)
[2020-07-28] MEDS ORDERED: AMOX500C PO (08:20)
[2020-07-28] MEDS ORDERED: PENT400T47 PO (08:20)
== END 2020-06-22 13:13 | disposition home or self-care (01) | DRG 392 ==
LOC: M ED 15:04 → M ED INP 19:32 → ENRESERV 19:51 → M MSPAV 21:20
PROVIDERS: ADMIT Internal Medicine; ATTEND Internal Medicine
DX: K21.9 Gastro-esophageal reflux disease without esophagitis (principal); M84.48XA Pathological fracture, other site, initial encounter for fracture; N17.9 Acute kidney failure, unspecified; N18.3 Chronic kidney disease, stage 3 (moderate); I12.9 Hypertensive chronic kidney disease with stage 1 through stage 4 chronic kidney disease, or unspecified chronic kidney disease; Z85.038 Personal history of other malignant neoplasm of large intestine; Z79.899 Other long term (current) drug therapy; Z88.8 Allergy status to other drugs, medicaments and biological substances; I25.10 Atherosclerotic heart disease of native coronary artery without angina pectoris; Z85.46 Personal history of malignant neoplasm of prostate; E86.0 Dehydration; D53.9 Nutritional anemia, unspecified; Z79.52 Long term (current) use of systemic steroids

== ENCOUNTER 2020-07-15 03:55 | Emergency (ER) | payer MEDICARE ==
[~2020-07-15] VITALS: Ht 180.3 cm; Wt 114.5 kg
[~2020-07-15 03:55] MED LIST changes: +ASPI81TA86 PO; +PRED5TA PO; +SUCR1TA PO
[2020-07-15 03:56] VITALS: BP 129/68
--- NOTE | 2020-07-15 05:32 | REPVR ---
PROCEDURE INFORMATION: Exam: CT Chest Without Contrast Exam date and time: 07/15/2020 4:55 AM Age: 75 years old Clinical indication: Pain; Other: Infusaport; Additional info: Left infusiport pain/subjective swelling TECHNIQUE: Imaging protocol: Computed tomography of the chest without contrast. Radiation optimization: All CT scans at this facility use at least one of these dose optimization techniques: automated exposure control; mA and/or kV adjustment per patient size (includes targeted exams where dose is matched to clinical indication); or iterative reconstruction. COMPARISON: CT Chest without contrast 06/21/2020 5:12 PM FINDINGS: Tubes, catheters and devices: Left Port-A-Cath through the internal jugular system with the tip in the proximal to mid superior vena cava. Lungs: Slight interstitial prominence and minimal bibasilar fibro-atelectatic change with minimal bilateral lower lobe bronchiectasis. Subpleural nodule laterally in the right middle lobe measuring 3 x 5 mm. 3.5 mm hazy nodule in the lateral right upper lobe which on coronal images appears to be flat. Pleural space: Unremarkable. No pneumothorax. No pleural effusion. Heart: Coronary artery calcifications are present. Pulmonary arteries: The main pulmonary artery measures 33 mm. Aorta: The ascending thoracic aorta measures 38 mm. Lymph nodes: Calcified granulomata in the right lung with calcified right hilar nodes. There are small mediastinal nodes which are within normal limits. Liver: Hepatic and splenic calcifications are noted. Gallbladder and bile ducts: Status post cholecystectomy. Bones/joints: Mild anterior wedge configuration of T7 which appears to be chronic. Displaced fractures of the left 5th and 10th ribs posteriorly. Cortical destruction is suggested involving the left 5th rib posteriorly. There are some areas of lucency within the T1 segment with slight compression of the anterosuperior aspect of T1 which is similar to the prior study. There is also lytic process involving the right lamina of T1. There is a lucency in the posterolateral aspect of T9 which is similar. Soft tissues: Unremarkable. 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 IMPRESSION: 1. Old granulomatous disease of the chest, liver and spleen. 2. Left Port-A-Cath extending to the proximal to mid superior vena cava which is similar to the prior study of 06/21/2020. 3. Slight interstitial prominence with minimal bibasilar fibro-atelectatic change and minimal bilateral lower lobe bronchiectasis. 4. Status post cholecystectomy. 5. Pulmonary nodules which are unchanged from the prior study. 6. Fractures of the left 5th and 10th ribs posteriorly with cortical destruction of the left 5th rib posteriorly suggesting metastatic disease and pathologic fracture. There are also rounded lucencies involving T1 with anterior compression suggesting pathologic compression. There is also a lytic process involving the right lamina of T1 consistent with metastatic disease. There is rounded lucency of the T9 segment posterolaterally suspicious for metastasis. Electronically signed by: Darren Marie On 07/15/2020 05:31:48 AM
--- NOTE | 2020-07-15 05:42 | REPVR ---
PROCEDURE INFORMATION: Exam: CT Abdomen And Pelvis Without Contrast Exam date and time: 07/15/2020 4:55 AM Age: 75 years old Clinical indication: Abdominal pain; Generalized; Additional info: Right rib pain, HX of path fractures TECHNIQUE: Imaging protocol: Computed tomography of the abdomen and pelvis without contrast. Radiation optimization: All CT scans at this facility use at least one of these dose optimization techniques: automated exposure control; mA and/or kV adjustment per patient size (includes targeted exams where dose is matched to clinical indication); or iterative reconstruction. COMPARISON: CT ABD PELVIS WITH CONTRAST 02/05/2020 1:05 PM FINDINGS: Lungs: Minimal bibasilar fibro-atelectatic change. Mediastinal space: Minimal hiatal hernia. Liver: Splenic and hepatic calcifications are noted. Gallbladder and bile ducts: Status post cholecystectomy. Pancreas: Normal. No ductal dilation. Spleen: Normal. No splenomegaly. Adrenals: Normal. No mass. Kidneys and ureters: Right renal cysts including peripelvic cysts measuring up to 2.2 cm which are similar to the prior study. Stomach and bowel: Partial ascending colectomy with ileocolic anastomosis in the right abdomen. Appendix: No evidence of appendicitis. Intraperitoneal space: Unremarkable. No free air. No significant fluid collection. Vasculature: There is mild calcification of the abdominal aorta with extension into the iliac arteries. Lymph nodes: Unremarkable. No enlarged lymph nodes. Urinary bladder: Unremarkable as visualized. Reproductive: Unremarkable as visualized. Bones/joints: Lucency in the right posterolateral aspect of the T9 segment. Lytic process involving the left lateral mass and pedicle of L1 and the base of the left transverse process. Sclerotic focus in the right aspect of L2. Probable lytic process involving the left inferolateral aspect of L4 and small lytic process in the left posterolateral aspect of L5 and possibly more centrally in the inferior aspect of L5. There is a lucent lesion in the right posterior iliac crest and a lucent area at the anteroinferior aspect of L5 with sclerotic margins. There is a sclerotic lesion of the left posterior iliac crest. There is a lytic process involving the lateral aspect of the left superior pubic ramus and anterior acetabulum with probable pathologic fracture through the anterior aspect of the acetabulum. There are multiple lucencies involving the left superior acetabulum which is likely metastatic disease. Fracture of the left 10th rib posteriorly. Sclerotic focus in the left ischial tuberosity which is new. Soft tissues: Midline incision in the pelvis with fluid collection within the incision measuring approximately 20 x 15 x 55 mm which is similar to the prior study. IMPRESSION: 1. Multiple sclerotic and lytic osseous lesions consistent with metastatic disease which have progressed or increased since 02/05/2020. 2. Midline fluid collection within an incision in the anterior pelvis which is similar to the prior study and may reflect chronic seroma or possibly abscess. 3. Old granulomatous disease of the liver and spleen. 4. Status post cholecystectomy. 5. Fracture of the left 10th rib posteriorly which is new since the prior study. 6. Partial ascending colectomy which is similar. Electronically signed by: Darren Marie On 07/15/2020 05:42:35 AM
[2020-07-28] MEDS ORDERED: CALC600T57 PO (08:20)
[2020-07-28] MEDS ORDERED: AMOX500C PO (08:20)
[2020-07-28] MEDS ORDERED: PENT400T47 PO (08:20)
[2020-07-28] MEDS ORDERED: CHLO0.124 MT (08:20)
== END 2020-07-15 06:43 | disposition home or self-care (01) ==
LOC: M ED 03:55
DX: T82.848A Pain due to vascular prosthetic devices, implants and grafts, initial encounter (principal); M84.48XA Pathological fracture, other site, initial encounter for fracture; Z95.828 Presence of other vascular implants and grafts; C61 Malignant neoplasm of prostate; C18.9 Malignant neoplasm of colon, unspecified; K76.89 Other specified diseases of liver; D73.89 Other diseases of spleen; N28.1 Cyst of kidney, acquired; Z90.49 Acquired absence of other specified parts of digestive tract; Z87.81 Personal history of (healed) traumatic fracture; Z79.82 Long term (current) use of aspirin; Z79.01 Long term (current) use of anticoagulants; Z79.899 Other long term (current) drug therapy; Z91.89 Other specified personal risk factors, not elsewhere classified; Z88.8 Allergy status to other drugs, medicaments and biological substances

== ENCOUNTER → 2020-07-21 | Outpatient (POV) | payer MEDICARE ==
[~2020-07-21] MED LIST changes: +AMOX500C PO; +CALC600T57 PO; +CHLO0.124 MT; +PENT400T47 PO
--- NOTE | 2020-07-22 11:32 | IRCOV ---
[facility] IR Consult Office Visit IR Consult Office Visit DATE: Jul 21, 2020 Patient agreed to this telephone consultation. I spent 20 minutes reviewing patient's records and talking to the patient. REASON FOR CONSULTATION/CHIEF COMPLAINT: Port pain. HISTORY OF PRESENT ILLNESS: 75-year-old male with history of metastatic prostate cancer, colon cancer, coronary artery disease, hypertension and hyperlipidemia, complaining of recent swelling and pain over port site. Port was placed in January [address] Duong. He remains on chemotherapy. He reports, recently there was pain over the port site and swelling. He went to the ER and was evaluated and told he did not have an infection. He states that since that time, the swelling and pain have gone away. Port was used without issues. No fevers or chills. ALLERGIES: Please see below. HOME MEDICATIONS: Please see below. PAST MEDICAL HISTORY: Prostate cancer colon Cancer Coronary artery disease Hypertension Hyperlipidemia Rib fractures GERD Acute kidney injury DVT PAST SURGICAL HISTORY: Cholecystectomy Appendectomy Prostatectomy Hemicolectomy Low back surgery Heart catheterization FAMILY HISTORY: Noncontributory SOCIAL HISTORY: Nonsmoker. Denies alcohol or drugs. REVIEW OF SYSTEMS: Otherwise negative. PHYSICAL EXAMINATION: No video on patient side. LABORATORY DATA: 07/07/2020 hemoglobin 11.6 hematocrit 37.3 WBC 8.0 platelets 275 sodium 139 potassium 4.1 BUN 23 creatinine 1.23 hemoglobin A1c 6.1 fasting glucose 118. 06/21/2020 INR 1.68. Imaging: I personally reviewed the CT chest July 2020. There is a left IJ port. ASSESSMENT/PLAN: 75-year-old male with recent history of reported swelling and pain over the port without infection. Patient states pain and swelling have resolved. Patient has intravenous chemotherapy scheduled but is also scheduled to meet with oncologist to discuss the options of oral therapy. He does get concerned that the port may one day get infected. We discussed the risks and benefits of port removal. Patient will call us back if he would like the port removed. Thank you for this referral. Cc Dr. Hillman Allergies Coded Allergies: adhesive tape (Verified Allergy, Intermediate, Rash, 01/01/19) atorvastatin (Verified Adverse Reaction, Intermediate, Myalgia, 01/01/19) diphenhydramine (Verified Adverse Reaction, Mild, Hyperactive, 01/01/19) ropinirole (Verified Adverse Reaction, Mild, Insomnia, 01/01/19) Home Medications Scheduled Aspirin (Aspir 81), 1 TAB PO DAILY Furosemide (Furosemide), 20 MG PO DAILY, (Reported) Lisinopril (Lisinopril), 20 MG PO DAILY, (Reported) Metoprolol Tartrate (Metoprolol Tartrate), 25 MG PO BID, (Reported) Omeprazole (Omeprazole), 20 MG PO DAILY, (Reported) Potassium Chloride (Potassium Chloride), 10 MEQ PO DAILY, (Reported) Pravastatin Sodium (Pravastatin Sodium), 40 MG PO DAILY, (Reported) Prednisone (Prednisone), 5 MG PO BID, (Reported) Rivaroxaban (Xarelto), 20 MG PO DAILY, (Reported) Sucralfate (Sucralfate), 1 TAB PO QID Scheduled PRN Acetaminophen (Acetaminophen), 1,000 MG PO Q6H PRN for BACK PAIN, (Reported) RENETTA BOND MD Jul 22, 2020 11:32
== END ==
LOC: M TMIRPOV 10:39
PROVIDERS: ATTEND Radiology Diagnostic Radiology
DX: Z45.2 Encounter for adjustment and management of vascular access device (principal); I10 Essential (primary) hypertension; I25.10 Atherosclerotic heart disease of native coronary artery without angina pectoris; E78.5 Hyperlipidemia, unspecified; C79.82 Secondary malignant neoplasm of genital organs; C18.9 Malignant neoplasm of colon, unspecified; Z79.899 Other long term (current) drug therapy; Z92.21 Personal history of antineoplastic chemotherapy

== ENCOUNTER → 2020-11-25 | Outpatient (CLI) | payer MEDICARE ==
[~2020-11-25] MED LIST changes: +ASPI81CH33 PO; +FERR325T3 PO; -LISI-538 PO; +LISI10TA22 PO; -LISI10TA4 PO; +LISI20TA33 PO
--- NOTE | 2020-11-25 10:00 | REP ---
INDICATION: CHEST PAIN. COMPARISON: Comparison chest x-ray June 21, 2020. TECHNIQUE: Two views.. FINDINGS: A left-sided Nkcvhm-D-Cbow catheter remains in place. There is blunting of the pleural angles bilaterally consistent with small bilateral effusions. Cardiomegaly is observed and coronary artery stent material is visible as before. Pulmonary vasculature is not increased. There is a granulomatous calcification again noted in the right mid lung zone. An old healed rib fractures noted on the left. IMPRESSION: Mild cardiomegaly and small bilateral pleural effusions blunting the pleural angles. Otherwise no acute disease.. <Electronically signed by Ilia Peters > 11/25/20 0914
== END ==
LOC: M RAD 09:32
PROVIDERS: ATTEND Internal Medicine Medical Oncology
DX: R07.9 Chest pain, unspecified (principal)

== ENCOUNTER → 2020-12-02 | Outpatient (CLI) | payer MEDICARE ==
[~2020-12-02] MED LIST changes: +JOBSMIS MC
--- NOTE | 2020-12-02 12:50 | REP ---
INDICATION: R/O DVT,PAIN COMPARISON: 07/26/2018 TECHNIQUE: Justice scale and color Doppler evaluation right and left lower extremities using linear high frequency transducer. FINDINGS: Right lower extremity is normal and without evidence for deep venous thrombosis. Left lower extremity demonstrates nonocclusive thrombus in the distal superficial femoral vein and popliteal vein which is likely chronic when compared with prior examination. IMPRESSION: 1. Normal right lower extremity without thrombus. 2. Suspected small area of nonocclusive chronic thrombus in the left superficial femoral vein/popliteal vein. <Electronically signed by Timbo Ramirez > 12/02/20 1245
== END ==
LOC: M RAD 12:07
PROVIDERS: ATTEND Internal Medicine Medical Oncology
DX: M79.604 Pain in right leg (principal); M79.605 Pain in left leg; M79.89 Other specified soft tissue disorders

== ENCOUNTER → 2021-03-19 | Outpatient (CLI) | payer MEDICARE ==
[~2021-03-19] MED LIST changes: +COVI100V IM; +METO25TA PO; +ZYTI250T PO
--- NOTE | 2021-03-19 17:41 | REP ---
INDICATION: RIB PAIN. COMPARISON: The frontal view of the chest is compared to prior examination 11/25/2020 TECHNIQUE: Four views with frontal view of the chest FINDINGS: The frontal view the chest shows bibasilar clearing compared to the prior exam. There are no other significant changes. Four views of the ribs bilateral are suboptimal with poor beam penetration involving both lower ribs on all views to such a degree a subtle fracture could be obscured. There is evidence of an old healed fracture involving the right 4th rib. IMPRESSION: Exam is markedly limited. Rib fracture cannot be ruled out. CT is recommended. <Electronically signed by Reginald Nazario > 03/19/21 3721
== END ==
LOC: M RAD 17:11
PROVIDERS: ATTEND Internal Medicine Medical Oncology
DX: R07.81 Pleurodynia (principal)

== ENCOUNTER → 2021-03-24 | Outpatient (CLI) | payer MEDICARE ==
[~2021-03-24] MED LIST changes: +ISOVUE-370 76% 100ML VIAL As Ordered ONE
--- NOTE | 2021-03-24 16:29 | REP ---
INDICATION: PANCREATIC CA W/ RIB CAGE PAIN COMPARISON: Multiple the latest 07/15/2020 TECHNIQUE: Standard helical technique after the intravenous administration of 100 cc Isovue 370 FINDINGS: The mediastinum and pulmonary grabiel are essentially unchanged. There is no evidence of a mass or adenopathy. There are no pleural or pericardial effusions. The imaged upper abdomen is essentially unchanged. Since the last examination a grade 2 superior endplate compression deformity has developed involving T10. In addition, a mixed density lesion is now seen and L2 on the right there was, however, present on the abdominal and pelvic CT scan of 07/15/2020. There are multiple old left-sided rib fractures. Evaluation of the lung cummings shows no new abnormal nodules, masses, or opacities. The small right middle lobe nodule seen on the prior exam has resolved. IMPRESSION: 1. Since the last examination a T10 compression fracture has developed as described above. 2. Bone lesions, as described above, suspicious for osseous metastasis. 3. No new pulmonary parenchymal abnormality. <Electronically signed by Reginald Nazario > 03/24/21 2742
== END ==
LOC: M RAD 15:52
PROVIDERS: ATTEND Internal Medicine Medical Oncology
DX: R07.81 Pleurodynia (principal); C25.9 Malignant neoplasm of pancreas, unspecified; M48.54XA Collapsed vertebra, not elsewhere classified, thoracic region, initial encounter for fracture; M89.9 Disorder of bone, unspecified; Z87.81 Personal history of (healed) traumatic fracture
CPT/HCPCS: 71260; Q9967

== ENCOUNTER → 2021-05-10 | Outpatient (CLI) | payer MEDICARE ==
[~2021-05-10] MED LIST changes: +ACUL0.5S OS; +ALPR0.5T3 PO; +AMBI5TAB PO; -CEFD1CAP8 PO; +CEFD300C41 PO; +D31000TA2 PO; +GABA-282 PO; -ISOVUE-370 76% 100ML VIAL As Ordered ONE; +LORA-674 PO; +MORP15TA2 PO; +ONDA-84 PO; -ONDA8TAB10 PO; +PREDOPD OS; -PROC10TA4 PO; +PROC10TA5 PO; +TOBR0.3S37 OS
== END ==
LOC: M PLARAD 10:58
PROVIDERS: ATTEND Internal Medicine Medical Oncology
DX: C61 Malignant neoplasm of prostate (principal); C79.51 Secondary malignant neoplasm of bone
CPT/HCPCS: 78815; A9552

== ENCOUNTER → 2021-05-24 | Outpatient (REF) | payer MEDICARE ==
[~2021-05-24] MED LIST changes: -ALPR0.5T3 PO; -AMBI5TAB PO; +CEFD1CAP8 PO; -CEFD300C41 PO; -GABA-282 PO; -MORP15TA2 PO; -ONDA-84 PO; +ONDA8TAB10 PO; +PROC10TA4 PO; -PROC10TA5 PO
[2021-05-24 10:48] LABS: HEMOGLOBIN A1c 6.8 %
== END ==
LOC: M LAB REF 09:02
PROVIDERS: ATTEND Student in an Organized Health Care Education/Training Program
DX: E74.39 Other disorders of intestinal carbohydrate absorption (principal); Z79.899 Other long term (current) drug therapy

== ENCOUNTER → 2021-07-21 | Outpatient (CLI) | payer MEDICARE ==
[~2021-07-21] MED LIST changes: +ALPR0.5T3 PO
== END ==
LOC: M LABSMTC 09:52
PROVIDERS: ATTEND Anesthesiology
DX: Z01.812 Encounter for preprocedural laboratory examination (principal); Z20.822 Contact with and (suspected) exposure to COVID-19

== ENCOUNTER 2021-07-26 10:38 | Day surgery (SDC) | payer MEDICARE ==
[~2021-07-26] VITALS: Ht 180.3 cm; Wt 113.8 kg
[~2021-07-26 10:38] MED LIST changes: +NS 1,000 ML IV ONE
--- OUTSIDE RECORDS SUMMARY | 2021-07-26 10:42 | CCD ---
Continuity of Care Document (CCD) Created on: 05/27/2021 Matt Lara External Reference #: [id number] : [id number] Sex: Male Author Author Matt IRBY M.D. Organization Unknown Address [address] [place] [address], [address] [place] [address] Phone [phone] Care Team Providers Care Lan Engineer Name Role Phone Nabil Guzman M.D. AUTM [phone] June Hillman M.D. AUTM [phone] Problems Active Problems Provider Date Essential hypertension Austen Irby M.D. Onset: 10/03 Anemia Austen Irby M.D. Onset: 018 Hemorrhage of rectum and anus Austen Irby M.D. Onse t: 10/26/2017 History of polyp of colon Austen Irby M.D. Onset: 0 10/26/2017 Social History Type Date Description Comments Sex Unknown ETOH Use Denies alcohol use Tobacco Use Start: Unknown Non Smoker Allergies, Adverse Reactions, Alerts Active Allergies Criticality Reaction | Severity Comments Date Benadryl Unable to assess criticality 10/26/2017 Medications Active Medications SIG Qnty Indications Ordering Provide r Date Omeprazole 20mg Capsules 1tab po bid 30caps Austen Irby M.D. 10/26/2017 Ferrousul 325(65Fe) mg Tablets 1tab po bid Unknown Metoprolol Succinate ER 25mg Tablets ER 24HR 1tab po bid Unknown Clopidogrel Bisulfate 75mg Tablets 1tab po qd Unknown Pravastatin Sodium 40mg Tablets 1tab po qd Unknown Vitamin D (Cholecalciferol) 1000Unit Tablets 1tab po qd Unknown Aspirin 81mg Tablets 1tab po qd Unknown Lupron Depot (1-Month) 3.75mg Kit one injection intramuscular every month as directed Unknown Immunizations Description No Information Available Vital Signs Date Vital Result Comment 11/15/2017 8:57am BP Systolic 124 mmHg BP Diastolic 62 mmHg Height 71 inches 5'11" Weight 240.00 lb BMI (Body Mass Index) 33.5 kg/m2 [place] [facility] Weight 172 lb Weight 108.864 kg BSA (Body Surface Area) 2.28 m2 10/26/2017 2:30pm BP Systolic 124 mmHg BP Diastolic 68 mmHg Height 71 inches 5'11" Weight 242.00 lb BMI (Body Mass Index) 33.7 kg/m2 [place] Body Weight 172 lb Weight 109.771 kg BSA (Body Surface Area) 2.29 m2 Results Description No Information Available Procedures Description No Information Available Medical Devices Description No Information Available Encounters Description No Information Available Assessments Date Code Description Provider 05/27/2021 C18.2 Malignant neoplasm of ascending colon Austen Irby M.D. 05/27/2021 D64.9 Anemia, unspecified Austen romero M.D. 05/27/2021 K21.00 Gastro-esophageal re flux disease with esophagitis, without bleeding Austen Irby M.D. Plan of Treatment 05/27/2021 - Austen Irby M.D.* C18.2 Malignant neoplasm of ascending colon * D64.9 Anemia, unspecified * K21.00 Gastro-esophageal reflux disease with esophagitis, without bleeding * * Recommendations:* -- Patient educated about the test results. All questions answered. -- Follow up antireflux measures. -- Will schedule for EGD + Colonoscopy -- Cardiology clearance to hold Xarelto for atleast 1-2 day sprior to procedure. Patiet is on immunotherapy which can be continued from the procedure point of view I explained the minimal increased risks and patient verbalized understanding. -- Will need surveillance colonoscopy in 1 year. recall placed. -- Return to GI clinic in 1 year or sooner if any change in status. . -- Follow up with PMD for routine medical care and other age appropriate health maintenance.. Functional Status Description No Information Available Mental Status Description No Information Available Referrals Refer to Reason for Referral Status Appt Date Austen Irby M.D. IRON DEF/ANEMIA Scheduled 07/03 [facility] [address], [address] [place] [address] [phone]
--- OUTSIDE RECORDS SUMMARY | 2021-07-26 10:42 | CCD | Continuity of Care Document ---
Author Author Matt IRBY M.D. Organization Unknown Address [address] [place] [address], [address] [place] [address] Phone [phone] Care Team Providers Care Lay Up Operator Name Role Phone Nabil Guzman M.D. AUTM [phone] June Hillman M.D. AUTM [phone] Problems Active Problems Provider Date Essential hypertension [...] SIG Qnty Indications Ordering Provide r Date Metoprolol Tartrate 25mg Tablets 1tab bid Unknown Pravastatin Sodium 40mg Tablets 1tab qd Unknown Vitamin D 125mcg (5000 Ut) Capsule s 1tab qd Unknown Lupron Depot (6-Month) 45mg Kit 1inj q6mo Unknown Abiraterone Acetate 250mg Tablets 1tab qd Unknown Acetaminophen 500mg Tablets 1 tab prn Unknown Alprazolam 0.5mg Tablets 1tab qd Unknown Loratadine 10mg Tablets 1tab qd Unknown Omeprazole 20mg Capsules DR Zhang cap qd Unknown Potassium Chloride ER 20Meq Tablet s ER 1tab qd Unknown Prednisone 5mg Tablets 1tab q d Unknown Xarelto 20mg Tablets 1tab qd Unknown Immunizations Description No Information Available Vital Signs Date Vital Result Comment 05/27/2021 1:49pm BP Systolic 126 mmHg BP Diastolic 78 mmHg Height 71 inches 5'11" Weight 250.00 lb BMI (Body Mass Index) 34.9 kg/m2 [place] Body Weight 172 lb Weight 113.400 kg BSA (Body Surface Area) 2.32 m2 11/15/2017 8:57am BP Systolic 124 mmHg BP Diastolic 62 mmHg Height 71 inches 5'11" Weight 240.00 lb BMI (Body Mass Index) 33.5 kg/m2 [place] Body Weight 172 lb Weight 108.864 kg BSA (Body Surface Area) 2.28 m2 Results Description No Information Available Procedures Date Code Description Status 05/27/2021 20645 Office/Outpatient Established Lo w MDM 20-29 Min Completed Medical Devices Description No Information Available Encounters Type Date Location Provider Dx Diagnosis Office Visit 05/27/2021 1:00p [facility] Austen Irby M.D. C18.2 Malignant neoplasm of ascend ing colon D64.9 Anemia, unspecified K21.00 Gastro-esophageal reflux dis with esophagitis, without bleed Assessments Date Code Description Provider 05/27/2021 C18.2 Malignant neoplasm of ascending colon Austen Irby M.D. 05/27/2021 D64.9 Anemia, unspecified Austen romero M.D. 05/27/2021 K21.00 Gastro-esophageal re flux disease with esophagitis, without bleeding Austen Irby M.D. Plan of Treatment Future Appointment(s):* 07/21/2021 1:35 pm - Austen Irby M.D. at [facility] * 07/13/2021 7:30 am - Austen Irby M.D. at [facility] Functional Status Description No Information Available Mental Status Description No Information Available Referrals Refer to Reason for Referral Status Appt Date Austen Irby M.D. IRON DEF/ANEMIA Scheduled 07/03 [facility] [address] [facility], [place] [address] [phone]
--- OUTSIDE RECORDS SUMMARY | 2021-07-26 10:43 | CCD ---
Author Author [facility] Organization [facility] Address Unknown Phone Unavailable Care Team Providers Care Hvac Installation Technician Name Role Phone Tricia Cain MD Unavailable Unavailable Tricia Cain MD Unavailable Unavailable Tricia Cain MD Unavailable Unavailable Tricia Cain MD Unavailable Unavailable Tricia Cain MD Unavailable Unavailable Tricia Cain MD Unavailable Unavailable Tricia Cain MD Unavailable Unavailable Tricia Cain MD Unavailable Unavailable Tricia Cain MD Unavailable Unavailable Payton Tricia MD Unavailable Unavailable Payton Tricia MD Unavailable Unavailable Payton Tricia MD Unavailable Unavailable Payton Tricia MD Unavailable Unavailable Payton Tricia MD Unavailable Unavailable Tricia Cain MD Unavailable Unavailable Payton Tricia MD Unavailable Unavailable Tricia Cain MD Unavailable Unavailable Payton Tricia MD Unavailable Unavailable Payton Tricia MD Unavailable Unavailable Payton Tricia MD Unavailable Unavailable Payton Tricia MD Unavailable Unavailable Payton Tricia MD Unavailable Unavailable Payton Tricia MD Unavailable Unavailable Payton Tricia MD Unavailable Unavailable Payton Tricia MD Unavailable Unavailable Koloms, Tricia MD Unavailable Unavailable Koloms, Tricia MD Unavailable Unavailable Koloms, Tricia MD Unavailable Unavailable Koloms, Tricia MD Unavailable Unavailable Koloms, Tricia MD Unavailable Unavailable Koloms, Tricia MD Unavailable Unavailable Koloms, Tricia MD Unavailable Unavailable Koloms, Tricia MD Unavailable Unavailable Dudley Villalobos MD Unavailable Unavailable Koloms, Tricia MD Unavailable Unavailable Koloms, Tricia MD Unavailable Unavailable Koloms, Tricia MD Unavailable Unavailable Koloms, Tricia MD Unavailable Unavailable Koloms, Tricia MD Unavailable Unavailable Koloms, Tricia MD Unavailable Unavailable Koloms, Tricia MD Unavailable Unavailable Koloms, Tricia MD Unavailable Unavailable Koloms, Tricia MD Unavailable Unavailable Koloms, Tricia MD Unavailable Unavailable Koloms, Tricia MD Unavailable Unavailable Koloms, Tricia MD Unavailable Unavailable Koloms, Tricia MD Unavailable Unavailable Koloms, Tricia MD Unavailable Unavailable Koloms, Tricia MD Unavailable Unavailable Koloms, Tricia MD Unavailable Unavailable Koloms, Tricia MD Unavailable Unavailable Koloms, Tricia MD Unavailable Unavailable Koloms, Tricia MD Unavailable Unavailable Koloms, Tricia MD Unavailable Unavailable Koloms, Tricia MD Unavailable Unavailable Koloms, Tricia MD Unavailable Unavailable Koloms, Tricia MD Unavailable Unavailable Koloms, Tricia MD Unavailable Unavailable Koloms, Tricia MD Unavailable Unavailable Koloms, Tricia MD Unavailable Unavailable Koloms, Tricia MD Unavailable Unavailable Koloms, Tricia MD Unavailable Unavailable Koloms, Tricia MD Unavailable Unavailable Koloms, Tricia MD Unavailable Unavailable Koloms, Tricia MD Unavailable Unavailable Koloms, Tricia MD Unavailable Unavailable Koloms, Tricia MD Unavailable Unavailable Dudley Villalobos MD Unavailable Unavailable Dudley Villalobos MD Unavailable Unavailable Dudley Villalobos MD Unavailable Unavailable Dudley Villalobos MD Unavailable Unavailable Dudley Villalobos MD Unavailable Unavailable Dudley Villalobos MD Unavailable Unavailable Dudley Villalobos MD Unavailable Unavailable Dudley Villalobos MD Unavailable Unavailable Dudley Villalobos MD Unavailable Unavailable Dudley Villalobos MD Unavailable Unavailable Dudley Villalobos MD Unavailable Unavailable Dudley Villalobos MD Unavailable Unavailable Dudley Villalobos MD Unavailable Unavailable Dudley Villalobos MD Unavailable Unavailable Dudley Villalobos MD Unavailable Unavailable Dudley Villalobos MD Unavailable Unavailable Dudley Villalobos MD Unavailable Unavailable Domingo IRBY MD Unavailable Unavailable Domingo IRBY MD Unavailable Unavailable Domingo IRBY MD Unavailable Unavailable Domingo IRBY MD Unavailable Unavailable Domingo IRBY MD Unavailable Unavailable Domingo IRBY MD Unavailable Unavailable Domingo IRBY MD Unavailable Unavailable Domingo IRBY MD Unavailable Unavailable Domingo IRBY MD Unavailable Unavailable Domingo IRBY MD Unavailable Unavailable Domingo IRBY MD Unavailable Unavailable Domingo IRBY MD Unavailable Unavailable Domingo IRBY MD Unavailable Unavailable Domingo IRBY MD Unavailable Unavailable Domingo IRBY MD Unavailable Unavailable Domingo IRBY MD Unavailable Unavailable Domingo IRBY MD Unavailable Unavailable Domingo IRBY MD Unavailable Unavailable Domingo IRBY MD Unavailable Unavailable Domingo IRBY MD Unavailable Unavailable Domingo IRBY MD Unavailable Unavailable Domingo IRBY MD Unavailable Unavailable Domingo IRBY MD Unavailable Unavailable Domingo IRBY MD Unavailable Unavailable Domingo IRBY MD Unavailable Unavailable Domingo IRBY MD Unavailable Unavailable Domingo IRBY MD Unavailable Unavailable Domingo IRBY MD Unavailable Unavailable Domingo IRBY MD Unavailable Unavailable Domingo IRBY MD Unavailable Unavailable Domingo IRBY MD Unavailable Unavailable Domingo IRBY MD Unavailable Unavailable Domingo IRBY MD Unavailable Unavailable BRADLY CACERES MD Unavailable Unavailable BRADLY CACERES MD Unavailable Unavailable BRADLY CACERES MD Unavailable Unavailable BRADLY CACERES MD Unavailable Unavailable BRADLY CACERES MD Unavailable Unavailable BRADLY CACERES MD Unavailable Unavailable BRADLY CACERES MD Unavailable Unavailable BRADLY CACERES MD Unavailable Unavailable BRADLY CACERES MD Unavailable Unavailable BRADLY CACERES MD Unavailable Unavailable BRADLY CACERES MD Unavailable Unavailable BRADLY CACERES MD Unavailable Unavailable BRADLY CACERES MD Unavailable Unavailable BRADLY CACERES MD Unavailable Unavailable BRADLY CACERES MD Unavailable Unavailable BRADLY CACERES MD Unavailable Unavailable BRADLY CACERES MD Unavailable Unavailable BRADLY CACERES MD Unavailable Unavailable BRADLY CACERES MD Unavailable Unavailable BRADLY CACERES MD Unavailable Unavailable BRADLY CACERES MD Unavailable Unavailable BRADLY CACERES MD Unavailable Unavailable BRADLY CACERES MD Unavailable Unavailable BRADLY CACERES MD Unavailable Unavailable BRADLY CACERES MD Unavailable Unavailable BRADLY CACERES MD Unavailable Unavailable MORRIS, ABDULLAHI MD Unavailable Unavailable MORRIS, ABDULLAHI MD Unavailable Unavailable MORRIS, ABDULLAHI MD Unavailable Unavailable MORRIS, ABDULLAHI MD Unavailable Unavailable MORRIS, ABDULLAHI MD Unavailable Unavailable MORRIS, ABDULLAHI MD Unavailable Unavailable MORRIS, ABDULLAHI MD Unavailable Unavailable MORRIS, ABDULLAHI MD Unavailable Unavailable MORRIS, ABDULLAHI MD Unavailable Unavailable MORRIS, ABDULLAHI MD Unavailable Unavailable MORRIS, ABDULLAHI MD Unavailable Unavailable MORRIS, ABDULLAHI MD Unavailable Unavailable MORRIS, ABDULLAHI MD Unavailable Unavailable MORRIS, ABDULLAHI MD Unavailable Unavailable MORRIS, ABDULLAHI MD Unavailable Unavailable MORRIS, ABDULLAHI MD Unavailable Unavailable MORRIS, ABDULLAHI MD Unavailable Unavailable MORRIS, ABDULLAHI MD Unavailable Unavailable MORRIS, ABDULLAHI MD Unavailable Unavailable MORRIS, ABDULLAHI MD Unavailable Unavailable MORRIS, ABDULLAHI MD Unavailable Unavailable MORRIS, ABDULLAHI MD Unavailable Unavailable MORRIS, ABDULLAHI MD Unavailable Unavailable MORRIS, ABDULLAHI MD Unavailable Unavailable MORRIS, ABDULLAHI MD Unavailable Unavailable MORRIS, ABDULLAHI MD Unavailable Unavailable MORRIS, ABDULLAHI MD Unavailable Unavailable MORRIS, ABDULLAHI MD Unavailable Unavailable MORRIS, ABDULLAHI MD Unavailable Unavailable Hadian, Abimael Unavailable Unavailable Hadian, Abimael Unavailable Unavailable Hadian, Abimael Unavailable Unavailable Hadian, Abimael Unavailable Unavailable Hadian, Abimael Unavailable Unavailable Hadian, Abimael Unavailable Unavailable Hadian, Abimael Unavailable Unavailable Hadian, Abimael Unavailable Unavailable Hadian, Abimael Unavailable Unavailable Hadian, Abimael Unavailable Unavailable Hadian, Abimael Unavailable Unavailable Hadian, Abimael Unavailable Unavailable Hadian, Abimael Unavailable Unavailable Hadian, Abimael Unavailable Unavailable Hadian, Abimael Unavailable Unavailable Hadian, Abimael Unavailable Unavailable Hadian, Abimael Unavailable Unavailable Hadian, Abimael Unavailable Unavailable Hadian, Abimael Unavailable Unavailable Hadian, Abimael Unavailable Unavailable Hadian, Abimael Unavailable Unavailable Hadian, Abimael Unavailable Unavailable Hadian, Abimael Unavailable Unavailable Hadian, Abimael Unavailable Unavailable Hadian, Abimael Unavailable Unavailable Hadian, Abimael Unavailable Unavailable Hadian, Abimael Unavailable Unavailable Hadian, Abimael Unavailable Unavailable Hadian, Abimael Unavailable Unavailable Hadian, Abimael Unavailable Unavailable Hadian, Abimael Unavailable Unavailable Hadian, Abimael Unavailable Unavailable Hadian, Abimael Unavailable Unavailable Hadian, Abimael Unavailable Unavailable Hadian, Abimael Unavailable Unavailable Hadian, Abimael Unavailable Unavailable Hadian, Abimael Unavailable Unavailable Hadian, Abimael Unavailable Unavailable Hadian, Abimael Unavailable Unavailable Hadian, Abimael Unavailable Unavailable Hadian, Abimael Unavailable Unavailable Hadian, Abimael Unavailable Unavailable Carrizales, Yulsisa Ruby PA Unavailable Unavailable Carrizales, Yulissa Ruby PA Unavailable Unavailable Carrizales, Yulissa Ruby PA Unavailable Unavailable Carrizales, Yulissa Ruby PA Unavailable Unavailable Carrizales, Yulissa Ruby PA Unavailable Unavailable Carrizales, Yulissa Ruby PA Unavailable Unavailable Carrizales, Yulissa Ruby PA Unavailable Unavailable Carrizales, Yulissa Ruby PA Unavailable Unavailable Carrizales, Yulissa Ruby PA Unavailable Unavailable Carrizales, Yulissa Ruby PA Unavailable Unavailable WEYER, FIORDALIZA MACHINE CHOCOLATE MOLDER Unavailable Unavailable WEYER, FIORDALIZA MACHINE CHOCOLATE MOLDER Unavailable Unavailable WEYER, FIORDALIZA MACHINE CHOCOLATE MOLDER Unavailable Unavailable WEYER, FIORDALIZA MACHINE CHOCOLATE MOLDER Unavailable Unavailable WEYER, FIORDALIZA MACHINE CHOCOLATE MOLDER Unavailable Unavailable WEYER, FIORDALIZA MACHINE CHOCOLATE MOLDER Unavailable Unavailable WEYER, FIORDALIZA MACHINE CHOCOLATE MOLDER Unavailable Unavailable WEYER, FIORDALIZA MACHINE CHOCOLATE MOLDER Unavailable Unavailable WEYER, FIORDALIZA MACHINE CHOCOLATE MOLDER Unavailable Unavailable WEYER, FIORDALIZA MACHINE CHOCOLATE MOLDER Unavailable Unavailable WEYER, FIORDALIZA MACHINE CHOCOLATE MOLDER Unavailable Unavailable WEYER, FIORDALIZA MACHINE CHOCOLATE MOLDER Unavailable Unavailable WEYER, FIORDALIZA MACHINE CHOCOLATE MOLDER Unavailable Unavailable WEYER, FIORDALIZA MACHINE CHOCOLATE MOLDER Unavailable Unavailable WEYER, FIORDALIZA MACHINE CHOCOLATE MOLDER Unavailable Unavailable WEYER, FIORDALIZA MACHINE CHOCOLATE MOLDER Unavailable Unavailable WEYER, FIORDALIZA MACHINE CHOCOLATE MOLDER Unavailable Unavailable WEYER, FIORDALIZA MACHINE CHOCOLATE MOLDER Unavailable Unavailable UNKNOWN Unavailable Unavailable Koloms, Tricia MD Unavailable Unavailable Koloms, Tricia MD Unavailable Unavailable Koloms, Tricia MD Unavailable Unavailable Koloms, Tricia MD Unavailable Unavailable Koloms, Tricia MD Unavailable Unavailable Koloms, Tricia MD Unavailable Unavailable Koloms, Tricia MD Unavailable Unavailable Koloms, Tricia MD Unavailable Unavailable Koloms, Tricia MD Unavailable Unavailable Koloms, Tricia MD Unavailable Unavailable Koloms, Tricia MD Unavailable Unavailable Koloms, Tricia MD Unavailable Unavailable Koloms, Tricia MD Unavailable Unavailable Koloms, Tricia MD Unavailable Unavailable Koloms, Tricia MD Unavailable Unavailable Koloms, Tricia MD Unavailable Unavailable Koloms, Tricia MD Unavailable Unavailable Koloms, Tricia MD Unavailable Unavailable Koloms, Triica MD Unavailable Unavailable Koloms, Tricia MD Unavailable Unavailable Koloms, Tricia MD Unavailable Unavailable Koloms, Tricia MD Unavailable Unavailable Koloms, Tricia MD Unavailable Unavailable Koloms, Tricia MD Unavailable Unavailable Koloms, Tricia MD Unavailable Unavailable Koloms, Tricia MD Unavailable Unavailable Koloms, Tricia MD Unavailable Unavailable Koloms, Tricia MD Unavailable Unavailable Koloms, Tricia MD Unavailable Unavailable Koloms, Tricia MD Unavailable Unavailable Koloms, Tricia MD Unavailable Unavailable Tricia Cain MD Unavailable Unavailable Tricia Cain MD Unavailable Unavailable LINDSEY, KULWINDER PA Unavailable Unavailable LINDSEY, KULWINDER PA Unavailable Unavailable LINDSEY, KULWINDER PA Unavailable Unavailable LINDSEY, KULWINDER PA Unavailable Unavailable LINDSEY, KULWINDER PA Unavailable Unavailable LINDSEY, KULWINDER PA Unavailable Unavailable LINDSEY, KULWINDER PA Unavailable Unavailable LINDSEY, KULWINDER PA Unavailable Unavailable LINDSEY, KULWINDER PA Unavailable Unavailable LINDSEY, KULWINDER PA Unavailable Unavailable LINDSEY, KULWINDER PA Unavailable Unavailable MORRISBRADLY MD Unavailable Unavailable MORRISBRADLY MD Unavailable Unavailable MORRIS, BRADLY WATSON Unavailable Unavailable MORRIS, BRADLY WATSON Unavailable Unavailable MORRIS, BRADLY WATSON Unavailable Unavailable MORRIS, BRADLY WATSON Unavailable Unavailable MORRIS, BRADLY WATSON Unavailable Unavailable MORRIS, BRADLY WATSON Unavailable Unavailable MORRIS, BRADLY WATSON Unavailable Unavailable MORRIS, BRADLY WATSON Unavailable Unavailable MORRIS, BRADLY WATSON Unavailable Unavailable MORRIS, BRADLY WATSON Unavailable Unavailable MORRIS, BRADLY WATSON Unavailable Unavailable MORRIS, BRADLY WATSON Unavailable Unavailable MORRIS, BRADLY WATSON Unavailable Unavailable MORRIS, BRADLY WATSON Unavailable Unavailable MORRIS, BRADLY WATSON Unavailable Unavailable MORRIS, BRADLY WATSON Unavailable Unavailable MORRIS, BRADLY WATSON Unavailable Unavailable MORRIS, BRADLY WATSON Unavailable Unavailable MORRIS, BRADLY WATSON Unavailable Unavailable MORRIS, BRADLY WATSON Unavailable Unavailable MORRIS, BRADLY WATSON Unavailable Unavailable MORRIS, BRADLY WATSON Unavailable Unavailable MORRIS, BRADLY WATSON Unavailable Unavailable MORRIS, BRADLY WATSON Unavailable Unavailable MORRIS, BRADLY WATSON Unavailable Unavailable MORRIS, BRADLY WTASON Unavailable Unavailable MORRIS, BRADLY WATSON Unavailable Unavailable MORRIS, BRADLY WATSON Unavailable Unavailable MORRIS, BRADLY WATSON Unavailable Unavailable MORRIS, BRADLY WATSON Unavailable Unavailable MORRIS, BRADLY WATSON Unavailable Unavailable MORRIS, BRADLY WATSON Unavailable Unavailable MORRIS, BRADLY WATSON Unavailable Unavailable MORRIS, BRADLY WATSON Unavailable Unavailable MORRIS, BRADLY WATSON Unavailable Unavailable MORRIS, BRADLY WATSON Unavailable Unavailable MORRIS, BRADLY WATSNO Unavailable Unavailable MORRIS, BRADLY WATSON Unavailable Unavailable MORRISBRADLY MD Unavailable Unavailable MORRISBRADLY MD Unavailable Unavailable MORRIS, BRADLY WATSON Unavailable Unavailable MORRISBRADLY MD Unavailable Unavailable MORRIS, BRADLY WATSON Unavailable Unavailable MORRIS, BRADLY WATSON Unavailable Unavailable MORRIS, BRADLY WATSON Unavailable Unavailable MORRIS, BRADLY WATSON Unavailable Unavailable MORRIS, BRADLY WATSON Unavailable Unavailable MORRIS, BRADLY WATSON Unavailable Unavailable MORRIS, BRADLY WATSON Unavailable Unavailable MORRIS, BRADLY WATSON Unavailable Unavailable MORRIS, BRADLY WATSON Unavailable Unavailable MORRIS, BRADLY WATSON Unavailable Unavailable MORRIS, BRADLY WATSON Unavailable Unavailable Re-disclosure Warning The records that you are about to access may contain information from federally-assisted alcohol or drug abuse programs. If such information is present, then the following federally mandated warning applies: This information has been disclosed to you from records protected by federal confidentiality rules (42 CFR part 2). The federal rules prohibit you from making any further disclosure of this information unless further disclosure is expressly permitted by the written consent of the person to whom it pertains or as otherwise permitted by 42 CFR part 2. A general authorization for the release of medical or other information is NOT sufficient for this purpose. The Federal rules restrict any use of the information to criminally investigate or prosecute any alcohol or drug abuse patient.The records that you are about to access may contain highly sensitive health information, the redisclosure of which is protected by Article 27-F of the [facility] Public Health law. If you continue you may have access to information: Regarding HIV / AIDS; Provided by facilities licensed or operated by the [facility] Office of Mental Health; or Provided by the [facility] Office for People With Developmental Disabilities. If such information is present, then the following [facility] mandated warning applies: This information has been disclosed to you from confidential records which are protected by state law. State law prohibits you from making any further disclosure of this information without the specific written consent of the person to whom it pertains, or as otherwise permitted by law. Any unauthorized further disclosure in violation of state law may result in a fine or alf sentence or both. A general authorization for the release of medical or other information is NOT sufficient authorization for further disc losure. Allergies and Adverse Reactions Type Description Substance Reaction Status Data Source(s ) Drug allergy No Known Drug Allergies No Known Drug Allergies [facility] Food allergy No Known Food Allergies No Known Food Allergies [facility] No Known Allergies No Known Allergies [facility] Family History Family Member Name Family Member Gender Family Member Status Date o f Status Description Data Source(s) Unknown Male Problem [facility] (Dr Roderick Rojas) Unknown Unknown Problem [facility] ([facility] Encounters Encounter Providers Location Date Indications Data Source(s ) Outpatient Attender: BRADLY COFFMAN.JOSÉ-SJP.JOSÉ 12:00:00 AM EDT - 07/14/2021 03:52:03 PM EDT [facility] Outpatient Attender: RODRIGUEZ Erickson/Ann/Branden castillo/Reinthierry 05/27/2021 01:00:00 PM EDT [facility] Outpatient Attender: Abimael Headley CPSCAORT-CPSGNIMD 021 12:52:00 PM EDT - 05/18/2021 12:53:00 PM EDT [facility] Patient discharged. Outpatient Attender: Tricia Cain MD 2020 06:40:00 AM EDT - 04/07/2021 10:16:00 AM EDT CATARACT/CATARACT EXTRACTION 00164 [facility] CATARACT/CATARACT EXTRACTION 25110 Patient discharged. Outpatient Attender: MAR MERALABEJN 04/02/2021 03:01:00 PM E DT [facility] Outpatient Attender: Tricia Cain MD ED-LABPNP 2020 08:12:00 AM EDT - 04/02/2021 08:13:00 AM EDT PREOP [facility] PREOP Patient discharged. Outpatient Attender: Tricia Cain MDConsultant: FIORDALIZA Merritt NP 03/31/2021 07:15:00 AM EDT - 03/31/2021 09:22:[address] [facility] Patient discharged. Outpatient Attender: Tricia Cain MDConsultant: FIORDALIZA Merritt NP 03/26/2021 12:24:15 PM EDT - 03/29/2021 12:18:[address] [facility] Patient discharged. Outpatient Attender: Tricia Cain MD ED-LABPNP 2020 07:30:00 AM EDT - 03/26/2021 07:31:00 AM EDT [id number] [facility] [id number] Patient discharged. Outpatient Attender: Abimael Headley CPSMAUREENORT-CPSGNIMD 021 07:42:00 AM EDT - 03/25/2021 07:43:00 AM EDT [facility] Patient discharged. Outpatient Attender: BRADLY COFFMAN.JONATHAN 02:25:02 PM EDT - 03/10/2021 03:49:44 PM EDT [facility] Outpatient [address] [facility] [address] 02/05/2021 12:00:00 AM EDT eCW1 (Critical access hospital) [place] [address] [facility] [address] 01/05/2021 12:00:00 AM EDT eCW1 (Critical access hospital) Outpatient Attender: BRADLY CACERES MD [facility] 08:12:00 AM EDT - 01/04/2021 08:13:00 AM EDT I25.10 [facility] I25.10 Patient discharged. Outpatient Attender: BRADLY DO.GVR 12:00:00 AM EDT - 01/04/2021 11:21:28 AM EDT [facility] Outpatient Attender: BRADLY CACERES MD [facility] 09:12:00 AM EDT - 12/29/2020 09:13:00 AM EDT I10 E876 [facility] I10 E876 Patient discharged. Outpatient Attender: BRADLY CACERES MD [facility] 09:41:00 AM EDT - 12/24/2020 09:42:00 AM EDT [id number] [facility] I2510 [id number] Patient discharged. Outpatient Attender: BRADLY CACERES MDReferrer: BRADLY JOHNSONGVR 12/16/2020 11:05:40 AM EDT - 12/16/2020 11:55:[address] [facility] Outpatient Attender: BRADLY BAJWAGVR 12:00:00 AM EST - 12/07/2020 09:43:08 AM EST [facility] Outpatient Attender: KULWINDER CURRY CPSCAORT-CPSCRISTINA 10/2020 08:29:00 AM EST - 11/30/2020 08:30:[address] [facility] Attender: Abimael Fang CPSCAORT-CPSGNIMD 021 01:57:00 PM EST - 11/18/2020 01:58:00 PM EST [facility] Patient discharged. Unknown [address] [facility] [address] 10/12/2020 12:00:00 AM EST eCW1 (Critical access hospital) Outpatient Attender: Andrew Villalobos MDAttender: Andrew Villalobos MD CPSCAORT-LABCN 10/05/2020 01:29:00 PM EST - 10/05/2020 01:30:00 PM EST PSA SCREENING C61 [facility] PSA SCREENING C61 Patient discharged. Outpatient [address] [facility] [address] 09/28/2020 12:00:00 AM EST eCW1 (Critical access hospital) [place] [address] [facility] [address] 09/28/2020 12:00:00 AM EST eCW1 (Critical access hospital) Outpatient Attender: Ruby bryant 08/22/2020 11:15:00 AM EST [facility] ([facility]) Outpatient Attender: BRADLY CACERES MD SJP-SJP.GVR 07/06/2020 12:00:00 AM EDT [facility] Outpatient Attender: Abimael Headley CPSCAORT-CPSGNIMD 020 11:59:00 AM EDT - 05/18/2020 12:00:00 PM EDT [facility] Patient discharged. Immunizations Vaccine Date Status Description Data Source(s) COVID-19 VACCINE Moderna 11/16/2020 12:00:00 AM EST completed [employer] Vaccine Series Complete: YESThis Data wa s Submitted to [facility] Via [employer]. COVID-19 VACCINE, MRNA-1273, LNP-S (MODERNA)/PF 11/16/2020 1 2:00:00 AM EST completed [facility] COVID-19 VACCINE, MRNA-1273, LNP-S (MODERNA)/PF 10/19/2020 1 2:00:00 AM EST completed [facility] COVID-19 VACCINE Moderna 10/19/2020 12:00:00 AM EST completed [employer] Vaccine Series Complete: NOThis Data was Submitted to [facility] Via [employer]. PNEUMOCOCCAL 23-VALENT POLYSACCHARIDE VACCINE 09/05/2020 12: 00:00 AM EST completed [employer] INFLUENZA VACCINE QUADRIVALENT (65 YR UP)/MF59 C.1/PF 08/18/2020 12:00:00 AM EST completed [employer] Medications Medication Brand Name Start Date Product Form Dose Route Admi nistrative Instructions Pharmacy Instructions Status Indications Reaction Description Data Source(s) Prednisone 5 MG Oral Tablet predniSONE (DELTASONE) 5 M G tablet predniSONE (DELTASONE) 5 MG tablet 06/29/2021 12:00:00 AM EDT active [facility] Alprazolam 0.5 MG Oral Tablet ALPRAZOLAM 05/18/2021 12:00:00 AM EDT ta blet 30 TAKE ONE TABLET BY MOUTH EVERY EVENING NEEDED MAXIMUM DAILY DOSE = 1 TAKE ONE TABLET BY MOUTH EVERY EVENING NEEDED MAXIMUM DAILY DOSE = 1 SOLD: 05/18/2021 [employer] ferrous sulfate 325 MG Oral Tablet Ferrous Sulfate (Ir on) 325 (65 Fe) MG TABS Ferrous Sulfate (Iron) 325 (65 Fe) MG TABS 04/11/2021 12:00:[address] [facility] Potassium Chloride Potassium Chloride 03/30/2021 03:03:01 PM EDT 10 MEQ active [facility] rivaroxaban 20 MG Oral Tablet Rivaroxaban (Xarelto) 20 mg Tablet Rivaroxaban (Xarelto) 20 mg Tablet 03/30/2021 03:03:01 PM EDT 20 MG active [facility] ferrous sulfate Ferrous Sulfate Ferrous Sulfate 03/30/2021 03:03:01 PM EDT 324 MG active [facility] 1.5 ML Leuprolide Acetate 30 MG/ML Prefi lled Syringe Leuprolide (6 Month) (Lupron Depot (6 Month)) 45 mg Syringe Kit Leuprolide (6 Month) (Lupron Depot (6 Month)) 45 mg Syringe Kit 03/30/2021 03:03:[address] [facility] Prednisone 5 MG Oral Tablet Prednisone 03/30/2021 03:03:01 PM EDT 5 MG active [facility] Furosemide 20 MG Oral Tablet Furosemide 03/30/2021 03:03:01 PM EDT 20 MG active [facility] Metoprolol Tartrate 25 MG Oral Tablet Metoprolol Tartrate 03:03:01 PM EDT 25 MG active [facility] Pravastatin Sodium 40 MG Oral Tablet Pravastatin 03/30/2021 03:03: 01 PM EDT 40 MG active [facility] Loratadine 10 MG Oral Tablet Loratadine 03/30/2021 03:03:01 PM EDT 10 MG active [facility] Acetaminophen 03/30/2021 03:03:01 PM EDT 500 MG ac tive [facility] Omeprazole 20 MG Delayed Release Oral Capsule Omeprazole 03/30/2021 03:03:01 PM EDT 20 MG active [facility] abiraterone acetate 250 MG Oral Tablet Abiraterone Abiratero ne 03/30/2021 03:03:[address] [facility] Metolazone 2.5 MG Oral Tablet metolazone (ZAROXOLYN) 2 .5 MG tablet metolazone (ZAROXOLYN) 2.5 MG tablet 12/09/2020 12:00:00 AM EST 2.5 mg Oral aborted Take 1 tablet (2.5 mg total) by mouth ev arlene other day [facility] 24 HR Oxybutynin chloride 5 MG Extended Release Oral Tablet Oxybutynin Chloride ER 5 MG Oxybutynin Chloride ER 5 MG 09/28/2020 12:00:00 AM EST 1.0 {tablet} active Oxybutynin Chloride ER 5 MG eCW1 ([facility]) 24 HR Oxybutynin chloride 5 MG Extended Release Oral Tablet Oxybutynin Chloride ER 5 MG Oxybutynin Chloride ER 5 MG 09/28/2020 12:00:00 AM EST 1.0 {tablet} active Oxybutynin Chloride ER 5 MG eCW1 ([facility]) 24 HR Oxybutynin chloride 5 MG Extended Release Oral Tablet Oxybutynin Chloride ER 5 MG Oxybutynin Chloride ER 5 MG 09/28/2020 12:00:00 AM EST 1.0 {tablet} active Oxybutynin Chloride ER 5 MG eCW1 ([facility]) 24 HR Oxybutynin chloride 5 MG Extended Release Oral Tablet Oxybutynin Chloride ER 5 MG Oxybutynin Chloride ER 5 MG 09/28/2020 12:00:00 AM EST 1.0 {tablet} suspended Oxybutynin Chloride ER 5 MG eCW1 ([facility]) 24 HR Oxybutynin chloride 5 MG Extended Release Oral Tablet Oxybutynin Chloride ER 5 MG Oxybutynin Chloride ER 5 MG 09/28/2020 12:00:00 AM EST 1.0 {tablet} active Oxybutynin Chloride ER 5 MG eCW1 ([facility]) Triamcinolone Acetonide 0.005 MG/MG Topical Ointment Triamci nolone Acetonide 08/22/2020 12:00:00 AM EST active [facility] ([facility]) 400 mg 07/23/2020 12:00:00 AM EDT tablet extended release 112 TAKE ONE TABLET BY MOUTH TWICE A DAY TAKE ONE TABLET BY MOUTH TWICE A DAY SOLD: 07/23/2020 [facility] Prednisone 5 MG Oral Tablet predniSONE (DELTASONE) 5 M G tablet predniSONE (DELTASONE) 5 MG tablet 06/12/2020 12:00:00 AM EDT 5 mg Oral aborted Take 5 mg by mouth 2 (two) times a day [facility] Lisinopril 20 MG Oral Tablet lisinopril (PRINIVIL,ZEST RIL) 20 MG tablet lisinopril (PRINIVIL,ZESTRIL) 20 MG tablet 05/07/2020 12:00:[address] [facility] Aspirin 81 MG Delayed Release Oral Tablet aspirin EC 8 1 MG EC tablet aspirin EC 81 MG EC tablet 81 mg Oral aborted Take 81 mg by mouth daily [facility] Insurance Providers Payer name Policy type / Coverage type Policy ID Covered democrat ID Covered democrat's relationship to manrique Policy Manrique Plan Information MEDICARE [id number] SP [id number] A MEDICARE [id number] MEDICARE A [id number] Self [id number] A MEDICARE [id number] xxxxxxxxxxx [id number] MEDICARE [id number] Shonda [id number] P31 MEDICARE [id number] Shonda [id number] A [facility] [id number] Shonda [id number] AARP [place] [id number] Self [id number] [facility] [id number] xxxxxxxxxxx [id number] [employer] OPTIONS [id number] SP [id number] [employer] [id number] SP [id number] [employer] [id number] SP [id number] [employer] [id number] SP [id number] [facility] PI PI MEDICARE PI PI Self Pay P [id number] S [id number] [employer] Options Medigap Part B [id number] Self [id number] Medicare Medicare Primary [id number] Self [id number] [facility] [employer] [id number] MEDICAID [id number] SP [id number] MEDICARE C [id number] S [id number] A [employer] Medigap Part B [id number] Self [id number] Medicare [facility] Medicare Primary [id number] Self [id number] [employer] Medigap Part B [id number] Self [id number] Medicare [facility] Medicare Primary [id number] Self [id number] [employer] C[employer] OPTIONS -O/P [id number] MEDICARE -O/P [id number] 18 [id number] MEDICARE [id number] SP [id number] [id number] A [employer] [id number] SP [id number] [employer] [id number] Retired [id number] MEDICARE [id number] Retired [id number] [id number] [employer] [id number] S [id number] MEDICARE [id number] S [id number] P31 MEDICARE PART A -O/P [id number] 18 [id number] MEDICARE C [id number] S [id number] [id number] AARP O [id number] S [id number] [employer] [id number] SP [id number] MEDICARE [id number] Retired [id number] A [employer] Options Medigap Part B [id number] Self [id number] Medicare Medicare Primary [id number] Self [id number] Problems, Conditions, and Diagnoses Code Display Name Description Problem Type Effective Dates Data Source(s) G47.33 Obstructive sleep apnea (adult) (pediatr ic) Obstructive sleep apnea (adult) (pediatr Diagnosis 07/14/2021 02:07:45 PM EDT [facility] I10 Essential (primary) hypertension Essential (primary) h ypertension Diagnosis 07/14/2021 02:07:45 PM EDT [facility] Z01.818 Encounter for other preprocedural examin ation Encounter for other preprocedural examin Diagnosis 07/14/2021 02:07:45 PM EDT [facility] I31.3 Pericardial effusion (noninflammatory) P ericardial effusion (noninflammatory) Diagnosis 07/14/2021 02:07:45 PM EDT [facility] C61 Malignant neoplasm of prostate Malignant neoplasm of p rostate Diagnosis 07/14/2021 02:07:45 PM EDT [facility] K21.9 Gastro-esophageal reflux disease without esophagitis Gastro-esophageal reflux disease without Diagnosis 07/14/2021 02:07:45 PM EDT [facility] R60.0 Localized edema Localized edema Diagnosis 07/14/2021 02:0 7:45 PM EDT [facility] I82.409 Acute embolism and thrombosi s of unspecified deep veins of unspecified lower extremity Acute embolism and thrombosis of unspeci Diagnosis 07/14/2021 02:07:45 PM EDT [facility] I73.9 Peripheral vascular disease, unspecified Peripheral vascular disease, unspecified Diagnosis 07/14/2021 02:07:45 PM EDT [facility] R07.9 Chest pain, unspecified Chest pain, unspecified Diagno sis 07/14/2021 02:07:45 PM EDT [facility] I71.2 Thoracic aortic aneurysm, without ruptur e Thoracic aortic aneurysm, without ruptur Diagnosis 07/14/2021 02:07:45 PM EDT [facility] E78.5 Hyperlipidemia, unspecified Hyperlipidemia, unspecifie d Diagnosis 07/14/2021 02:07:45 PM EDT [facility] I25.84 Coronary atherosclerosis due to calcifie d coronary lesion Coronary atherosclerosis due to calcifie Diagnosis 07/14/2021 02:07:[address] [facility] I25.10 Atherosclerotic heart diseas e of [place] coronary artery without angina pectoris Atherosclerotic heart disease of [place] Diagnosis 07/14/2021 02:07:45 PM EDT [facility] 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 SECONDARY MALIGNANT NEOPLASM OF GENITAL ORGANS Diagnosis 05/18/2021 12:52:00 PM EDT [facility] R60.0 Localized edema LOCALIZED EDEMA Diagnosis 05/18/2021 12:5 2:00 PM EDT [facility] K21.9 Gastro-esophageal reflux disease without esophagitis GASTRO-ESOPHAGEAL REFLUX DISEASE WITHOUT ESOPHAGITIS Diagnosis 05/18/2021 12:52:00 PM ED T [facility] I10 Essential (primary) hypertension ESSENTIAL (PRIMARY) H YPERTENSION Diagnosis 05/18/2021 12:52:00 PM EDT [facility] F51.01 Primary insomnia PRIMARY INSOMNIA Diagnosis 05/18/2021 12 :52:00 PM EDT [facility] 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 H2513 Age-related nuclear cataract, bilateral Age-related nuclear cataract, bilateral Diagnosis 03/31/2021 07:15:[address] [facility] [id number] Encounter for other preprocedural examin ation Encounter for other preprocedural examination Diagnosis 03/29/2021 11:52:00 AM EDT [facility] H269 Unspecified cataract Unspecified cataract Diagnosis 03/29/2021 11:52:[address] [facility] H25.13 Age-related nuclear cataract, bilateral AGE-RELATED NUCLEAR CATARACT, BILATERAL Diagnosis 03/25/2021 07:42:00 AM EDT [facility] Z01.818 Encounter for other preprocedural examin ation ENCOUNTER FOR OTHER PREPROCEDURAL EXAMINATION Diagnosis 03/25/2021 07:42:00 AM EDT [facility] C18.9 Malignant neoplasm of colon, unspecified Malignant neoplasm of colon, unspecified Diagnosis 01/04/2021 09:55:02 AM EDT [facility] L57.8 Other skin changes due to chronic exposu re to nonionizing radiation OTH SKIN CHANGES DUE TO CHR EXPSR TO NONIONIZING RADIATION Diagnosis 11/30/2020 08:29:00 AM [facility] L82.1 Other seborrheic keratosis OTHER SEBORRHEIC KERATOSIS Diagnosis 11/30/2020 08:29:00 AM [facility] Z85.828 Personal history of other malignant neop lasm of skin PERSONAL HISTORY OF OTHER MALIGNANT NEOPLASM OF SKIN Diagnosis 11/30/2020 08:29:00 AM [facility] L98.9 Disorder of the skin and subcutaneous ti ssue, unspecified DISORDER OF THE SKIN AND SUBCUTANEOUS TISSUE, UNSPECIFIED Diagnosis 11/30/2020 08:29:0 0 AM [facility] Z85.820 Personal history of malignant melanoma o f skin PERSONAL HISTORY OF MALIGNANT MELANOMA OF SKIN Diagnosis 11/30/2020 08:29:00 AM [facility] L57.0 Actinic keratosis ACTINIC KERATOSIS Diagnosis 11/30/2020 08:29:00 AM [facility] C61 Malignant neoplasm of prostate MALIGNANT NEOPLASM OF P ROSTATE Diagnosis 10/05/2020 01:29:00 PM [facility] G47.33 Obstructive sleep apnea syndrome Obstructive sle ep apnea syndrome [id number] 07/07/2021 12:00:00 AM EDT [facility] Z01.818 Preop examination Preop examination [id number] 03/10/2021 12:00:00 AM EDT [facility] 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 Prostate canc er metastatic to bone Problem 02/05/2021 12:00:00 AM EDT [facility] ([facility]) E66.09 Obesity due to excess calories Other obesity due to excess calories Problem 09/28/2020 12:00:00 AM EST [facility] ([facility]) N39.46 [id number] Mixed stress and urge urinary incontinenc e Problem 09/28/2020 12:00:00 AM EST [facility] ([facility]) C79.51 [id number] Secondary malignant neoplasm of bone Prob daisy 09/28/2020 12:00:00 AM EST [facility] ([facility]) C61 [id number] Malignant neoplasm of prostate Problem 09/28 12:00:00 AM EST [facility] ([facility]) Surgeries/Procedures Procedure Description Date Indications Data Source(s) ECG ROUTINE ECG W/LEAST 12 LDS W/I&R <td>POCT AMB EKG</td><td>Routine</td><td>07/14/2021 6:18 PM EDT</td><td> Coronary artery disease due to calcified coronary lesion Chest pain, unspecified type Pericardial effusion Preop examination Benign essential hypertension</td><td> </td> 07/14/2021 06:18:00 PM EDT Benign essential hypertensionPreop exami nationPericardial effusionChest pain, unspecified typeCoronary artery disease due to calcified coronary lesion [facility] Benign essential hypertension Preop examination Pericardial effusion Chest pain, unspecified type Coronary artery disease due to calcified coronary lesion OFFICE OUTPATIENT VISIT 15 MINUTES 05/27/2021 12:00:00 AM EDT [facility] ([facility], ) [facility] outpatient clinic visit for assessment and ma nagement of a patient Hospital Outpatient Clinic Visit 05/18/2021 12:00:00 AM EDT [facility] ECG ROUTINE ECG W/LEAST 12 LDS W/I&R <td>POCT AMB EKG</td><td>Routine</td><td>03/10/2021 7:30 PM EDT</td><td> Coronary artery disease due to calcified coronary lesion Benign essential hypertension Preop examination</td><td> </td> 03/10/2021 07:30:00 PM EDT Preop examinationBenign essential hypert ensionCoronary artery disease due to calcified coronary lesion [facility] Preop examination Benign essential hypertension Coronary artery disease due to calcified coronary lesion DESTRUCTION PREMALIGNANT LESION 1ST DESTRUCT PREMALG LESION 11/30/2020 12:00:00 AM EST [facility] BLOOD COUNT COMPLETE AUTO&AUTO DIFRNTL WBC COUNT <td>C BC AND DIFFERENTIAL</td><td>Routine</td><td>11/25/2020</td><td></td><td> </td> 11/25/2020 12:00:00 AM EST [facility] HEPATIC FUNCTION PANEL <td>HEPATIC FUNCTION PANEL</td><td>Routine</td><td>11/25/2020</td><td></td><td> </td> 11/25/2020 12:00:00 AM [facility] BASIC METABOLIC PANEL CALCIUM TOTAL <td>BASIC METABOLI C PANEL</td><td>Routine</td><td>11/25/2020</td><td></td><td> </td> 11/25/2020 12:00:00 AM [facility] Prostate cancer screening; prostate specific antigen test (p sa) 10/05/2020 12:00:00 AM [facility] COLLECTION VENOUS BLOOD VENIPUNCTURE ROUTINE VENIPUNCTURE 12:00:00 AM [facility] Results ID Date Data Source [id number] 07/12/2021 06:05:00 PM EDT [facility] Name Value Range Interpretation Code Description Data Meeta rce(s) Supporting Document(s) SPECIMEN TYPE [facility] Whole Blood PREAUTHORIZATION [facility] Prior authorization review complete CLINICAL INDICATION [facility] Personal and/or family history of Heredi tary Breast andOvarian Cancer (HBOC) RESULTS [facility] NEGATIVE FOR PATHOGENIC VARIANTSNo clini allen significant variants or variants of uncertainsignificance were identified.GENE VARIANTBRCA1 NEGATIVE No pathogenic variants were identified.BRCA2 NEGATIVE No pathogenic variants were identified. INTERPRETATION [facility] No pathogenic variants were identified. ADDITIONAL CLINICAL INFORM. [facility] NCCN GuidelinesWhen BRCA1 and BRCA2 resu lts are negative, additionaltesting may be helpful for some patients with breast,ovarian, and pancreatic cancer. Guidelines from [facility] Comprehensive Cancer Network(R) (NCCN(R))recommend considering germline genetic testing forhigh-penetrance breast and/or ovarian cancer genes(including, but not limited to, BRCA1/2, CDH1, PALB2, PTEN,and TP53) in patients with any of the criteria in the tablebelow. To discuss comprehensive genetic testing for breast,ovarian, and pancreatic cancer genes, an [facility] Administrator is available at [phone].Breast cancer diagnosed Ovarian cancer at any age<= age 45Breast cancer diagnosed Breast cancer diagnosed atage 46-50 with >= 1 any age, with >= 1 closeclose relative with relative with breast cancerbreast, ovarian, <= age 50, or ovarian,pancreatic, or high pancreatic, or metastaticgrade prostate cancer prostate cancerMale breast cancer at Pancreatic cancer at any ageany ageTriple negative breast Metastatic prostate cancer atcancer diagnosed <= 60 any ageBreast, ovarian, or A first or second degreepancreatic cancer at any relative meeting any of theage; and Ashkenazi criteria in this tableJewish ancestry RECOMMENDATIONS [facility] Based on information provided, this sandra ent meets NationalComprehensive Cancer Network(R) (NCCN(R)) clinicalguidelines that recommend considering testing foradditional genes. See Additional Clinical Information formore details. [facility]' Genetic Coordinators areavailable at [phone] to discuss additional genetictesting if desired.Genetic counseling is recommended to discuss the potentialclinical and/or reproductive implications of these results,as well as recommendations for testing family members. Toaccess [facility] Genetic Counselors please [email or web address] or call [phone] ([phone]). METHODS AND LIMITATIONS [facility] Next-generation sequencing: Genomic neal ons of interest areselected using a custom capture reagent for targetenrichment and sequenced via the [employer](R) [employer] sequencing platform. Regions of interest includeall exons and intron/exon junctions (+/-20 nucleotides) ofthe BRCA1 (NM_007294.3) and BRCA2 (NM_000059.3) genes.Sequencing reads are aligned with the human genomereference GRCh37/hg19 build. Minimum mean coverage is 40X.Any segment failing minimum read depth coverage is rescuedby bi-directional [place] sequencing to complete sequenceanalysis. Variants, including SNVs and CNVs, are identifiedusing a custom bioinformatics pipeline.Reported variants: Pathogenic and likely pathogenicvariants and variants of uncertain significance (VUS) arereported. Non-deletion variants are specified using thenumbering and nomenclature recommended by the Human GenomeVariation Society (HGVS, http://www.hgvs.org/). Benignvariants are not reported. Variant classification andconfirmation are consistent with ACMG standards andguidelines ([place], PMID:12006250; [place], PMID:29099818).Detailed variant classification information is availableupon request. A variant of uncertain significance (VUS)should not be used in clinical decision making; a VUS isclassified based on inadequate or conflicting evidenceregarding its pathogenicity or clinical relevance.Limitations: Technologies used do not detect germlinemosaicism and do not rule out the presence of largechromosomal aberrations, including rearrangements, genefusions, or variants in regions or genes not included inthis test, or possible inter/ intragenic interactionsbetween variants. Variant classification and/orinterpretation may overhead crane inspector time if more informationbecomes available. False positive or false negative resultsmay occur for reasons that include: genetic variants,pseudogene interference, technical handling, bloodtransfusions, bone marrow transplantation, mislabeling ofsamples, or erroneous representation of familyrelationships. For heterozygous variants in the same genethe assay cannot determine whether they are on the same ordifferent chromosome; to determine phase and clinicalsignificance, rarely, parental testing may be required.Exact breakpoints of exon-level deletions/duplications arenot determined. The presence of an inherited cancersyndrome due to a different genetic cause cannot be ruledout. Any interpretation should be clinically correlatedwith information about the patients presentation andrelevant family history.This test was developed and its performance characteristicsdetermined by [employer]. It has not been cleared or approvedby the Food and Drug Administration. REFERENCES [facility] 1. NCCN Genetic/Familial High Risk Asses sment: Breast,Ovarian, and Pancreatic. Version 1.2020.2. marian Carrillo al. BRCA1- and BRCA2-AssociatedHereditary Breast and Ovarian Cancer. [place], [id number]. PMID: [id number]. RELEASED BY [employer] Christian Coyle, PhD, [facility] PDF . [facility] ID Date Data Source [id number] 06/24/2021 05:05:00 PM EDT [facility] Name Value Range Interpretation Code Description Data Emeta rce(s) Supporting Document(s) Informed Consent Needed [facility] TEST ORDERED - [id number] BRCAPlease Fax ba ck to [phone]. Many states require laboratoriesto have documentation that the appropriate health care providerhas obtained informed consent from patients before the laboratoryconducts genetic testing. Informed consent includes the patientunderstanding the purpose of the test, how the test is performed,the reliability of the test, alternatives to testing, implicationsof test results, and options on how to instruct the laboratory tostore, use or dispose of the sample when testing is complete. [facility] did not receive any documentation of informed consentfor above mentioned patient and ordered tests. Please check thestatement applicable to this patient and sign below so that [facility] the results [facility] this patient. [] I authorize and confirm patient consent for the above mentionedgenetic test(s). [] I have provided appropriate informed consent for the above mentioned test(s) and documentation of this consent is maintained in the patient record. Health care provider signature Date Printed name Fax back to [facility] at [phone] [facility] ID Date Data Source [id number] 04/07/2021 09:29:00 AM EDT [facility] OPERATIVE REPORT NAME: VINI RUSSELL : 1945 AGE: 76 MR#: [id number] ADMITTING DATE: 04/07/[address]: DISCHARGE DATE: 04/07/[address]: Tricia Cain M.D. ROOM#: DATE OF SURGERY/PROCEDURE 04/07/2021 SURGEON Tricia Cain MD PREOPERATIVE DIAGNOSIS Age related nuclear cataract, right eye. POSTOPERATIVE DIAGNOSIS Age-related nuclear cataract, right eye. PROCEDURE PERFORMED Phacoemulsification and posterior chamber intraocular lens implantation right eye. ANESTHESIA Topical with sedation. LENS AU00T0, 21.0 diopters. DESCRIPTION OF PROCEDURE The patient was given topical 4% Lidocaine anesthetic in the prep room. The patient's eye was prepped with Betadine in saline solution in the usual manner. After the patient was fully draped in the operating room, a self-retaining lid speculum was inserted. A side-port incision was made and 1% preservative-free Lidocaine was injected in the anterior chamber. Temporal clear cornea bilevel incision was made with keratome. A cystotome needle was passed through the opening and a capsulorrhexis opening of the capsule was performed. The capsule was removed with forceps and then phacoemulsification of the lens was done completely to rem ove all the nucleus. Then, the tip was withdrawn and the irrigation aspiration tip was inserted to remove all the cortical contents. Once all the cortex was removed, Viscoat was used to inflate the bag and smooth the entry way for the capsular bag. The implant was placed in the eye. This was put in horizontal position and Miochol was used to constrict the pupil. This was irrigated inside the eye and then the irrigation aspiration unit was inserted again to remove the Viscoat. Wound was checked for leakage. No leaks were noted. Lid speculum was removed. One drop of Betagan was instilled at the end of the case. The patient was discharged in good condition and met all criteria for discharge. /[id number] <Electronically signed by Tricia Cain MD> Tricia Cain MD 05/06/21 1326 Tricia Cain M.D. Cosigner: D: [place] 04/07/21 0929 T: UNIQUE 04/07/21 1021 CC: Tricia Cain M.D.; ABIMAEL HEADLEY MD LAST EDIT: Name Value Range Interpretation Code Description Data Meeta rce(s) Supporting Document(s) ID Date Data Source [id number] 04/02/2021 07:05:00 AM EDT [facility] Name Value Range Interpretation Code Description Data Meeta rce(s) Supporting Document(s) Respiratory specimen severe acute respir atory syndrome coronavirus 2 (SARS-CoV-2) RNA Negative (qualifier value) [facility] This lab was ordered by FayDolores valle and reported by [facility]. ID Date Data Source [id number] 04/03/2021 06:38:00 PM EDT Ginny rubi COVID-19 Specimen Source NASOPHARYNGEAL Name Value Range Interpretation Code Description Data Meeta rce(s) Supporting Document(s) SARS-CoV-2 RNA PANTHER Negative Normal (applies to non-n umeric results) [facility] Testing was performed using the Aptima S ARS-CoV-2 Assay (Earp System) Methodology: Nucleic Acid Amplification Licensed [employer] Manager RT-PCR Mediated Amplification (TMA) and Dual Kinetic Assay (DKA) Negative results do not preclude SARS-CoV-2 infection and should not be used as the sole basis for patient management decisions. Negative results must be combined with clinical observations, patient history, and epidemiological information. This test has been authorized by FDA under an (Emergency Use Authorization) EUA for use by authorized laboratories for individuals who are suspected of COVID-19 by their healthcare provider. This test is only authorized for the duration of the declaration that circumstances exist justifying the authorization of emergency use of in vitro diagnostic tests for detection and/or diagnosis of SARS-CoV-2. Fact sheets for this EUA assay can be found at the following links EUA Fact Sheet for Providers: https://www.fda.gov/media/728799/download EUA Fact Sheet for Patients: https://www.fda.gov/media/020212/download THIS IS A STATE REPORTABLE COMMUNICABLE DISEASE. Test Performed By: [facility] [address] [place] [address] Director: Mahsa Garay MD ID Date Data Source [id number] 04/03/2021 06:11:00 PM EDT [facility] COVID-19 Specimen Source NASOPHARYNGEAL Testing was performed using the Aptima SARS-CoV-2 Assay (Earp System) Methodology: Nucleic Acid Amplification Licensed Club Manager RT-PCR Mediated Amplification (TMA) and Dual Kinetic Assay (DKA) Negative results do not preclude SARS-CoV-2 infection and should not be used as the sole basis for patient management decisions. Negative results must be combined with clinical observations, patient history, and epidemiological information. This test has been authorized by FDA under an (Emergency Use Authorization) EUA for use by authorized laboratories for individuals who are suspected of COVID-19 by their healthcare provider. This test is only authorized for the duration of the declaration that circumstances exist justifying the authorization of emergency use of in vitro diagnostic tests for detection and/or diagnosis of SARS-CoV-2. Fact sheets for this EUA assay can be found at the following links EUA Fact Sheet for Providers: https://www.fda.gov/media/961184/download EUA Fact Sheet for Patients: https://www.fda.gov/media/484867/download THIS IS A STATE REPORTABLE COMMUNICABLE DISEASE. Test Performed By: [facility] [address] [place], [place] [id number] Director: Mahsa Garay MD Name Value Range Interpretation Code Description Data Meeta rce(s) Supporting Document(s) ID Date Data Source [id number] 03/31/2021 08:58:00 [place] [address] OPERATIVE SUMMARYNAME: YVONNE MARTINI DATE OF : 1945TTENDING PHYS: Tricia Cain MD DATE: 03/31/21 MR#: [id number] OF PROCEDURE: 03/31/2021REOPERATIVE DIAGNOSIS: Age-related nuclear cataract, left eye.POSTOPERATIVE DIAGNOSIS: Age-related nuclear cataract, left eye.PROCEDURE PERFORMED: Phacoemulsification of posterior chamber with intraocular lensimplantation left eye.ANESTHESIA: Topical sedation.LENS USED: AUOOTO 20.5 diopters.DETAILS OF PROCEDURE: The eye was prepped and draped in the usual fashion. Lidspeculum was placed in the lid. A stab incision was made to the anterior chamber with asuperblade. 1% non-preserved lidocaine was instilled and viscoelastic instilled. The eye wasrefixated, and a 2.4 mm Keratome made a clear corneal and temporal limbal incision. The lens wasthen hydrodissected, and then it was grooved in two meridians at the phacoemulsification. The lenswas scrapped into four quadrants. Each quadrant was in good phacoemulsification. The remainingcortex was removed with I&A unit. The capsular bag was refilled with viscoelastic and theposterior chamber and intraocular lens were inserted into the capsular bag with no difficulty. Anyremaining viscoelastic was removed with the I&A, and the wound was hydrated and balanced saltand ceftriaxone were instilled. The patient tolerated the procedure well, and went to the recoveryroom in stable condition.DD: Tricia Cain MD 03/31/21 08:51DT: MELINA 03/31/21 08:58DS: Tricia Cain MD 03/31/21 16:08 1 Name Value Range Interpretation Code Description Data Meeta rce(s) Supporting Document(s) ID Date Data Source [id number] 03/26/2021 07:07:00 AM EDT [facility] Name Value Range Interpretation Code Description Data Meeta rce(s) Supporting Document(s) Respiratory specimen severe acute respir atory syndrome coronavirus 2 (SARS-CoV-2) RNA Negative (qualifier value) [facility] This lab was ordered by [facility] and reported by . ID Date Data Source [id number] 03/26/2021 07:26:00 PM EDT [facility] Name Value Range Interpretation Code Description Data Meeta rce(s) Supporting Document(s) SARS-CoV-2 RNA INHOUSE Negative Normal (applies to non-n umeric results) [facility] THIS IS A STATE REPORTABLE COMMUNICABLE DISEASE. Testing was performed using the [employer] COVID-19 MDx Assay. This test has been authorized by FDA under an (Emergency Use Authorization) EUA for use by authorized laboratories for individuals who are suspected of COVID-19 by their healthcare provider. This test is only authorized for the duration of the declaration that circumstances exist justifying the authorization of emergency use of in vitro diagnostic tests for detection and/or diagnosis of SARS-CoV-2. Methodology: Endpoint RT-PCR. Fact sheets for this EUA assay can be found at the following links: Providers: https://www.fda.gov/media/985602/download Patients : https://www.fda.gov/media/766653/download THIS IS A [facility] REPORTABLE COMMUNICABLE DISEASE Negative results do not preclude SARS-CoV-2 infection and should not be used as the sole basis for patient management decisions. Negative results must be combined with clinical observations,patient history, and epidemiological information. ID Date Data Source [id number] 01/04/2021 09:56:00 AM EDT [facility] Name Value Range Interpretation Code Description Data Meeta rce(s) Supporting Document(s) Sodium 143 mmol/L 136-145 Normal (applies to non-numeric resul ts) [facility] Potassium 3.5-5.1 Normal (applies to non-numeric resul ts) [facility] Chloride 105 mmol/L 98-107 Normal (applies to non-numeric resul ts) [facility] Carbon Dioxide CO2 21-32 Normal (applies to non-numer ic results) [facility] Anion Gap 5.0-16.0 Normal (applies to non-numeric resul ts) [facility] BUN 15 mg/dL 7-18 Normal (applies to non-numeric results) [facility] Creatinine,Serum 0.8-1.5 Normal (applies to non-numeric results) [facility] GFR >60 Normal (applies to non-numeric results) [facility] Glucose Level 166 mg/dL 60-99 Above high normal [facility] Reference range is only applicable when patient is fasting Note the following drug interference: Sulfasalazine Sulfapyridine Can see falsely depressed Can see falsely elevated result with up to 17% results with up to 11% decrease in measurement increase in measurement Recommend patients be collected for this test prior to administration of either drug. Calcium 8.5-10.1 Below low normal [facility] spital ID Date Data Source [id number] 12/29/2020 10:21:00 AM EDT [facility] Name Value Range Interpretation Code Description Data Meeta rce(s) Supporting Document(s) Sodium 144 mmol/L 136-145 Normal (applies to non-numeric resul ts) [facility] Potassium 3.5-5.1 Normal (applies to non-numeric resul ts) [facility] Chloride 103 mmol/L 98-107 Normal (applies to non-numeric resul ts) [facility] Carbon Dioxide CO2 21-32 Above high normal [facility] Anion Gap 5.0-16.0 Normal (applies to non-numeric resul ts) [facility] BUN 15 mg/dL 7-18 Normal (applies to non-numeric results) [facility] Creatinine,Serum 0.8-1.5 Normal (applies to non-numeric results) [facility] GFR >60 Normal (applies to non-numeric results) [facility] Glucose Level 133 mg/dL 60-99 Above high normal [facility] Reference range is only applicable when patient is fasting Note the following drug interference: Sulfasalazine Sulfapyridine Can see falsely depressed Can see falsely elevated result with up to 17% results with up to 11% decrease in measurement increase in measurement Recommend patients be collected for this test prior to administration of either drug. Calcium 8.5-10.1 Below low normal [facility] spital ID Date Data Source [id number] 12/24/2020 10:49:00 AM EDT [facility] Name Value Range Interpretation Code Description Data Meeta rce(s) Supporting Document(s) Sodium 142 mmol/L 136-145 Normal (applies to non-numeric resul ts) [facility] Potassium 3.5-5.1 PL [facility] NIKOLE GONZALEZ LPN read back critic al information 12/24/20 1046 LAB.YAPJE Chloride 100 mmol/L 98-107 Normal (applies to non-numeric resul ts) [facility] Carbon Dioxide CO2 21-32 Normal (applies to non-numer ic results) [facility] Anion Gap 5.0-16.0 Normal (applies to non-numeric resul ts) [facility] BUN 18 mg/dL 7-18 Normal (applies to non-numeric results) [facility] Creatinine,Serum 0.8-1.5 Normal (applies to non-numeric results) [facility] GFR 57 mL/min >60 Below low normal [facility] Glucose Level 136 mg/dL 60-99 Above high normal [facility] Reference range is only applicable when patient is fasting Note the following drug interference: Sulfasalazine Sulfapyridine Can see falsely depressed Can see falsely elevated result with up to 17% results with up to 11% decrease in measurement increase in measurement Recommend patients be collected for this test prior to administration of either drug. Calcium 8.5-10.1 Normal (applies to non-numeric resul ts) [facility] ID Date Data Source [id number] 12/19/2020 02:50:42 PM EDT [facility] Name Value Range Interpretation Code Description Data Meeta rce(s) Supporting Document(s) &PDF [facility] VKUOJw3oZlLIMfEq91/SPSskSSBsf3BgRDvqTLm0SMbnJHUqD4MspCmiCAnPOGwaGSMXM8nmOnLcTSQi waW [file] AgICAgICAgICAgICAgICAgICAgICAgICAgICAgICAgICAgICAgICAgICAgICAgICAgICAgICAgICANCi AgICAgICAgICAgICAgICAgICAgICAgICAgICAgICAg ICAgICAgICAgICAgICAgICAgICAgICAgICAgICAgICAgICAgICAgICAgICAgICAgICAgICAgICAgICAg ICAgICAgICANCiAgICAgICAgICAgICAgICAgICAgICAgICAgICAgICAgICAgICAgICAgICAgICAgICAg ICAgICAgICAgICAgICAgICAgICAgICAgICAgICAgIC AgICAgICAgICAgICAgICAgICANCiAgICAgICAgICAgICAgICAgICAgICAgICAgICAgICAgICAgICAgIC AgICAgICAgICAgICAgICAgICAgICAgICAgICAgICAgICAgICAgICAgICAgICAgICAgICAgICAgICAgIC ANCiAgICAgICAgICAgICAgICAgICAgICAgICAgICAg ICAgICAgICAgICAgICAgICAgICAgICAgICAgICAgICAgICAgICAgICAgICAgICAgICAgICAgICAgICAg ICAgICAgICAgICANCiAgICAgICAgICAgICAgICAgICAgICAgICAgICAgICAgICAgICAgICAgICAgICAg ICAgICAgICAgICAgICAgICAgICAgICAgICAgICAgIC AgICAgICAgICAgICAgICAgICAgICANCiAgICAgICAgICAgICAgICAgICAgICAgICAgICAgICAgICAgIC AgICAgICAgICAgICAgICAgICAgICAgICAgICAgICAgICAgICAgICAgICAgICAgICAgICAgICAgICAgIC AgICANCiAgICAgICAgICAgICAgICAgICAgICAgICAg ICAgICAgICAgICAgICAgICAgICAgICAgICAgICAgICAgICAgICAgICAgICAgICAgICAgICAgICAgICAg ICAgICAgICAgICAgICANCiAgICAgICAgICAgICAgICAgICAgICAgICAgICAgICAgICAgICAgICAgICAg ICAgICAgICAgICAgICAgICAgICAgICAgICAgICAgIC AgICAgICAgICAgICAgICAgICAgICAgICANCiAgICAgICAgICAgICAgICAgICAgICAgICAgICAgICAgIC AgICAgICAgICAgICAgICAgICAgICAgICAgICAgICAgICAgICAgICAgICAgICAgICAgICAgICAgICAgIC AgICAgICANCjw/jCRcZ4twcFAyrdL5P6ocZk4YOh6R QI5kn0TkGOQiAGrbyoZnCqoYOvPbHYFxIdiPOhu9CNklIU9GyWDhT9VoJ0YtDVgvGA9WGDDkEGYuwZLv NXEcHVJuZyE1JVIiFAsvZC4NkVCpULapSHDqKAZcApDrCMGbKT5ZSAMiU413dzRtCx4KWd8RQpKuMG2w hh9JSWZvQPHeNarWDmm1LOozLQ9LtMVlO8CtkQEfs3 fOBoRtB8UEIQH6OUFaXr3JSFQmPoPlKNIdHZqmFJ7mJOKuKTVWgFvjcxC1DM9JWX4elxDeRJ4MPtJlFq 0hZp0SOuPqN2YbO4QzGPGjTOZTECztUP0OERYaCYY7LBGyVHUsEUTTZaCjR87bPC6TH9Mhf33ePkO3ZB TwIhCkNIzeEG77qRkhboZlbYBwmQrxBM5FJw1+DQpl wlTcGkuXXblvIOECKhFkCDTEWzUxWIIxXQDqVSGbFrL9DbHiCr6GUEUrPTScHORoOtVaNVQlEWYsUGvy NPDaOCP1IWrzMOWcFIOlJU3ERwKzMVJuNyloEMQqWLCeLAUxvk4PEYNoHWExRIC9RVRxVLZeZJEuVOnp NZDoSLWnLVM8HOOjBUNeAK4CBgEaDTFmIPH9EWKgNV IsCZCzrq0DJMFuADTpJOk2HTNhDWXgWKEeAMxpPYFbOAU4DRwhNROyTHSfEU9KHaEgMWApSSraBQSkQY UpTZNvru9BDNLnVNYqTbI3PIOcTMKlJPFoGTybUDQyZEL6NRJ6XXDzHPQiMC3ROgCkZKKxVLr3UYozMT PlGZSpxo8CSYSyWNNqDEE8XQOdKMIuJKKvXJmqOVRc OCG8UXe8YRGqTBSzYS2BKiPbNKNnSHY2VjJqSRYyELJpsz4MKHUcTRIvLFM9TZBlXCAiUIZwLOjzKQZr QYU7HiNvGVYbKEMnGS0YTvTqVIHuQUV0NGNlTTDrKNZdfi1NKQOyNDBmKUT3KERuMOKeFCEzCVyeDNJi OVC0CRnoKPQyEWPwVZ1BOdKmAWZfFEB7HftbJTLgPX Cctp5SPKYoVUPbORr4HNPiFSMlALBxUWwcLLBzGJHhLtX2JWKpYTKaNV4HHjYjLUXyPhQ9VXNrKZGbKD Udyg9TDOHbIEFtJzEjXAUoRGToZOKkVLhmFVSaXNR3YsOxYJAbCMWtLG1UPsPnEIKlPjTbSwxjKLHqHP Grxk5OKANtPLEgNit8VtMoAQYlGNSoPEorPSBsIIX2 BIDyPOGaXDSiLF9QJgGnHVPuDcy1QwdzIFXhZPYunw0EMELfHQH9OfExAMOyMQVrDGKpYMhtBPZtEIR2 TjeiAJZtQVEgXY2XGcKpJADmOPi4BoOiGFVvGILvjh8MWCQkFRH3Lju0VLAsBJRnMHWtTXdnSYDqASA1 Yth9VTOgBTVzHC6CTxUlOBVnIKn2YgVuQQFzOKYzbe 4ZRTAvBLD8WYA6SqFiDTQbKPHpIDucIBFvCLF9TCW0SQWiXUHyTP5WFxItFEStHpz1KbQmIHTaJDGdfq 5DVGUhKDB2AILbArPqFHYxXMLkPWx4djOjhDLyTGp0XW2OB5WgszUyRJLZKx8Zx475HBIjMFGoIe9RI2 waPx3hTCIiEPPVPu1LFCa8VLNyMaGcQULqKOAaPBMy ODQyInZ3AWe5PYE7OQSvHtR+NGk4NOBkPlHgMrLdNvQwYnFlKMDfAVBaMtYnBUN0TtKeXp5bRGJBUw1+ GVnlvBNpjWhqMLNPIeC2Xyt2XDvlONKPYl8Z ID Date Data Source [id number] 10/05/2020 04:00:00 PM EST [facility] Name Value Range Interpretation Code Description Data Meeta rce(s) Supporting Document(s) PSA,Annual Screen <4.10 Above high normal [facility] [employer] [place] Methodology:Chemiluminesce nt immunology based on LOCI technology. PSA concentrations should not be interpreted as absolute evidence for the presence or absence of Prostatic Cancer. The PSA value should be used in conjunction with information available from clinical evaluation and other diagnostic procedures such as VITO. Test results by other methods or kits may not be used interchangeably. Procedure Social History Code Duration Value Status Description Data Source(s ) Alcohol intake 07/14/2021 12:00:00 AM EDT Current non-d shasha of alcohol (finding) completed Current non-drinker of alcohol (finding) [facility] 03/30/2021 03:13:00 PM EDT No completed No [facility] 03/30/2021 03:13:00 PM EDT Never smoker completed Never [facility] Smoking 03/30/2021 03:13:00 PM EDT Never smoker completed Never [facility] Alcohol intake 03/10/2021 12:00:00 AM EDT Current non-d shasha of alcohol (finding) completed Current non-drinker of alcohol (finding) [facility] Alcohol intake 12/07/2020 12:00:00 AM EST No completed [facility] Smoking 12/07/2020 12:00:00 AM EST Never smoker completed Never [facility] Vital Signs ID Date Data Source UNK Name Value Range Interpretation Code Description Data Source(s) Systolic blood pressure 130 mm[Hg] 130 mm[Hg] [facility] Diastolic blood pressure 80 mm[Hg] 80 mm[Hg] [facility] Heart rate 68 /min 68 /min [facility] Body height 180.3 cm 180.3 cm [facility] Body weight 112.946 kg 112.946 kg [facility] Body mass index (BMI) [Ratio] 34.73 kg/m2 34.73 kg/m2 [facility] Oxygen saturation in Arterial blood by Pulse oximetry 95 % 95 % [facility] Systolic blood pressure 126 mm[Hg] 126 mm[Hg] M EDENT ([facility]) Diastolic blood pressure 78 mm[Hg] 78 mm[Hg] [facility] ([facility]) Body height 71 [in_i] 71 [in_i] [facility] ([facility]) 5'11" Body weight 250.00 [lb_av] 250.00 [lb_av] MEDEN T ([facility]) Body mass index (BMI) [Ratio] 34.9 kg/m2 34.9 k g/m2 [facility] ([facility]) [place] body weight 172 [lb_av] 172 [lb_av] MEDEN T ([facility]) Body weight 113.400 kg 113.400 kg [facility] ([facility]) Body surface area Derived from formula 2.32 m2 2.32 m2 [facility] ([facility]) Body weight 113.944 kg 113.944 kg [facility] Systolic blood pressure 130 mm[Hg] 130 mm[Hg] [facility] Diastolic blood pressure 80 mm[Hg] 80 mm[Hg] [facility] Heart rate 82 /min 82 /min [facility] Body mass index (BMI) [Ratio] 35.04 kg/m2 35.04 kg/m2 [facility] Oxygen saturation in Arterial blood by Pulse oximetry 97 % 97 % [facility] Body weight 245 [lb_av] 245 [lb_av] eCW1 ([facility]) Body height 69 [in_i] 69 [in_i] eCW1 ([facility]) Body mass index (BMI) [Ratio] 36.18 kg/m2 36.18 kg/m2 W1 ([facility]) Heart rate 59 /min 59 /min eCW1 ([facility]) Respiratory rate 18 /min 18 /min eCW1 ([facility]) Body temperature 98.1 [degF] 98.1 [degF] eCW1 ( [facility]) Systolic blood pressure 148 mm[Hg] 148 mm[Hg] e CW1 ([facility]) Diastolic blood pressure 90 mm[Hg] 90 mm[Hg] eCW1 ([facility]) Systolic blood pressure 144 mm[Hg] 144 mm[Hg] [facility] Diastolic blood pressure 80 mm[Hg] 80 mm[Hg] [facility] Heart rate 66 /min 66 /min [facility] Body height 180.3 cm 180.3 cm [facility] Body weight 116.121 kg 116.121 kg [facility] Body mass index (BMI) [Ratio] 35.70 kg/m2 35.70 kg/m2 [facility] Oxygen saturation in Arterial blood by Pulse oximetry 98 % 98 % [facility] Body weight 247 [lb_av] 247 [lb_av] eCW1 ([facility]) Body height 69 [in_i] 69 [in_i] eCW1 ([facility]) Body mass index (BMI) [Ratio] 36.47 kg/m2 36.47 kg/m2 W1 ([facility]) Heart rate 65 /min 65 /min W1 ([facility]) Respiratory rate 18 /min 18 /min W1 ([facility]) Body temperature 96.7 [degF] 96.7 [degF] eCW1 ( [facility]) Systolic blood pressure 130 mm[Hg] 130 mm[Hg] e CW1 ([facility]) Diastolic blood pressure 80 mm[Hg] 80 mm[Hg] eCW1 ([facility]) Body height 71 [in_i] 71 [in_i] [facility]) 5'11" Body mass index (BMI) [Ratio] 33.5 kg/m2 33.5 k g/m2 MEDENT ([facility]) Systolic blood pressure 109 mm[Hg] 109 mm[Hg] M EDENT ([facility]) Diastolic blood pressure 76 mm[Hg] 76 mm[Hg] MEDENT ([facility]) Heart rate 84 /min 84 /min MEDENT ([facility], [facility]) Respiratory rate 10 /min 10 /min MEDENT ( [facility]) Oxygen saturation in Arterial blood by Pulse oximetry 97 % 97 % MEDENT ([facility]) Body temperature 98.1 [degF] 98.1 [degF] MEDENT ([facility]) Body weight 240.00 [lb_av] 240.00 [lb_av] MEDEN T ([facility]) ID Date Data Source [id number] 06/30/2021 08:48:00 AM EDT [facility] Name Value Range Interpretation Code Description Data Source(s) Weight (Calculated Kilograms) 106.14 106.14 [facility] Height (Calculated Centimeters) 180.34 180. 34 [facility] Body Mass Index (BMI) 32.6 32.6 [facility] ID Date Data Source [id number] 04/03/2021 06:11:00 PM EDT [facility] Name Value Range Interpretation Code Description Data Source(s) Weight (Calculated Kilograms) 106.14 106.14 [facility] Height (Calculated Centimeters) 180.34 180. 34 [facility] Body Mass Index (BMI) 32.6 32.6 [facility] ID Date Data Source [id number] 04/02/2021 11:45:[address] [facility] Name Value Range Interpretation Code Description Data Source(s) WEIGHT RECORDED 250.00 pounds 250.00 pounds [facility] Height [address] [facility] ID Date Data Source [id number] 04/22/2021 07:49:00 AM EDT [facility] Name Value Range Interpretation Code Description Data Source(s) Weight (Calculated Kilograms) 106.14 106.14 [facility] Height (Calculated Centimeters) 180.34 180. 34 [facility] Body Mass Index (BMI) 32.6 32.6 [facility] ID Date Data Source [id number] 12/22/2020 09:24:00 AM EDT [facility] Name Value Range Interpretation Code Description Data Source(s) Weight (Calculated Kilograms) 106.14 106.14 [facility] Height (Calculated Centimeters) 180.34 180. 34 [facility] Body Mass Index (BMI) 32.6 32.6 [facility] ID Date Data Source [id number] 12/10/2020 08:41:[address] [facility] Name Value Range Interpretation Code Description Data Source(s) Weight (Calculated Kilograms) 106.14 106.14 [facility] Height (Calculated Centimeters) 180.34 180. 34 [facility] Body Mass Index (BMI) 32.6 32.6 [facility] ID Date Data Source [id number] 10/06/2020 04:37:[address] [facility] Name Value Range Interpretation Code Description Data Source(s) Weight (Calculated Kilograms) 106.14 106.14 [facility] Height (Calculated Centimeters) 180.34 180. 34 [facility] Body Mass Index (BMI) 32.6 32.6 [facility] Weight (Calculated Kilograms) 106.14 106.14 [facility] Height (Calculated Centimeters) 180.34 180. 34 [facility] Body Mass Index (BMI) 32.6 32.6 [facility] ID Date Data Source [id number] 06/12/2020 07:47:00 AM [facility] Name Value Range Interpretation Code Description Data Source(s) Weight (Calculated Kilograms) 106.14 106.14 [facility] Height (Calculated Centimeters) 180.34 180. 34 [facility] Body Mass Index (BMI) 32.6 32.6 [facility] Patient Treatment Plan of Care Planned Activity Planned Date Details Description Data Source (s) Prednisone 5 MG Oral Tablet 06/29/2021 12:00:[address] [facility] ferrous sulfate 325 MG Oral Tablet 04/11/2021 12:00:00 AM EDT [facility] Metolazone 2.5 MG Oral Tablet 12/09/2020 12:00:00 AM EST [facility] 24 HR Oxybutynin chloride 5 MG Extended Release Oral T ablet 09/28/2020 12:00:00 AM EST [facility] 24 HR Oxybutynin chloride 5 MG Extended Release Oral T ablet 09/28/2020 12:00:00 AM EST eCW1 ([facility]) 24 HR Oxybutynin chloride 5 MG Extended Release Oral T ablet 09/28/2020 12:00:00 AM EST eCW1 ([facility]) 24 HR Oxybutynin chloride 5 MG Extended Release Oral T ablet 09/28/2020 12:00:00 AM EST eCW1 ([facility]) Prednisone 5 MG Oral Tablet 06/12/2020 12:00:00 AM EDT [facility] Lisinopril 20 MG Oral Tablet 05/07/2020 12:00:00 AM EDT [facility] Aspirin 81 MG Delayed Release Oral Tablet [facility]
[2021-07-26] MEDS ORDERED: propofoL 200 MG/20 ML VIAL As Ordered ONE (11:46)
[2021-07-26] MEDS ORDERED: LIDOCAINE 2% 100MG/5ML SDV (FOR ANES.) As Ordered ONE ×2 (11:46→13:40)
--- NOTE | 2021-07-26 14:09 | ROOR ---
Patient Name: Matt Lara Procedure Date: 07/26/2021 1:37 PM Date of : 1945 Age: 76 Room: [facility] Gender: Male Note Status: Finalized Procedure: Upper GI endoscopy Indications: Iron deficiency anemia Providers: Austen Marie MD Referring MD: Abimael Headley MD Requesting Provider: Medicines: Propofol per Anesthesia, Monitored Anesthesia Care Complications: No immediate complications. Procedure: Pre-Anesthesia Assessment: - Prior to the procedure, a History and Physical was performed, and patient medications and allergies were reviewed. The patient is competent. The risks and benefits of the procedure and the sedation options and risks were discussed with the patient. All questions were answered and informed consent was obtained. Patient identification and proposed procedure were verified by the physician, the nurse and the anesthesiologist in the procedure room. Mental Status Examination: alert and oriented. Airway Examination: normal oropharyngeal airway and neck mobility. Respiratory Examination: clear to auscultation. CV Examination: normal. Prophylactic Antibiotics: The patient does not require prophylactic antibiotics. Prior Anticoagulants: The patient has taken Xarelto (rivaroxaban), last dose was 2 days prior to procedure. ASA Grade Assessment: III - A patient with severe systemic disease. After reviewing the risks and benefits, the patient was deemed in satisfactory condition to undergo the procedure. The anesthesia plan was to use monitored anesthesia care (MAC). Immediately prior to administration of medications, the patient was re-assessed for adequacy to receive sedatives. The heart rate, respiratory rate, oxygen saturations, blood pressure, adequacy of pulmonary ventilation, and response to care were monitored throughout the procedure. The physical status of the patient was re-assessed after the procedure. The Endoscope was introduced through the mouth, and advanced to the second part of duodenum. The upper GI endoscopy was accomplished without difficulty. The patient tolerated the procedure well. Findings: A medium-sized hiatal hernia was present. The Z-line was irregular and was found at the gastroesophageal junction. Scattered moderate inflammation characterized by erythema and granularity was found in the gastric body and in the gastric antrum. The duodenal bulb, second portion of the duodenum and third portion of the duodenum were normal. Impression: - Medium-sized hiatal hernia. - Z-line irregular, at the gastroesophageal junction. - Gastritis. - Normal duodenal bulb, second portion of the duodenum and third portion of the duodenum. - No specimens collected. Recommendation: - Patient has a contact number available for emergencies. The signs and symptoms of potential delayed complications were discussed with the patient. Return to normal activities tomorrow. Written discharge instructions were provided to the patient. - High fiber diet and Anti-acid reflux diet -- small meals, sit upright atleast 1 hour after meals, avoid fatty/ oily foods and avoid foods that cause reflux. - Resume Xarelto (rivaroxaban) at prior dose today. Refer to primary physician for further adjustment of therapy. - Continue present medications. - Await pathology results. - Check CBC, serum iron , transferrin and ferritin levels (fasting labs) in 6 weeks. - Return to GI clinic electively as outpatient if the above repeat labs show persistent anemia / abnormalities. - Return to primary care physician. Procedure Code(s): --- Professional --- 10786, Esophagogastroduodenoscopy, flexible, transoral; diagnostic, including collection of specimen(s) by brushing or washing, when performed (separate procedure) Diagnosis Code(s): --- Professional --- K44.9, Diaphragmatic hernia without obstruction or gangrene K22.8, Other specified diseases of esophagus K29.70, Gastritis, unspecified, without bleeding D50.9, Iron deficiency anemia, unspecified CPT copyright 2019 [employer]. All rights reserved. The codes documented in this report are preliminary and upon certified medical coder review may be revised to meet current compliance requirements. Austen Marie MD Austen Marie MD 07/26/2021 2:09:19 PM Electronically signed by Austen Marie MD Number of Addenda: 0 Note Initiated On: 07/26/2021 1:37 PM Estimated Blood Loss: Estimated blood loss was minimal.
--- NOTE | 2021-07-26 14:15 | ROOR ---
Patient Name: Matt Lara Procedure Date: 07/26/2021 1:39 PM Date of : 1945 Age: 76 Room: [facility] Gender: Male Note Status: Finalized Procedure: Colonoscopy Indications: High risk colon cancer surveillance: Personal history of colon cancer Providers: Austen Marie MD Referring MD: Abimael Headley MD Requesting Provider: Medicines: Monitored Anesthesia Care Complications: No immediate complications. Procedure: Pre-Anesthesia Assessment: - Prior to the procedure, a History and Physical was performed, and patient medications and allergies were reviewed. The patient is competent. The risks and benefits of the procedure and the sedation options and risks were discussed with the patient. All questions were answered and informed consent was obtained. Patient identification and proposed procedure were verified by the physician, the nurse and the anesthesiologist in the procedure room. Mental Status Examination: alert and oriented. Airway Examination: normal oropharyngeal airway and neck mobility. Respiratory Examination: clear to auscultation. CV Examination: normal. Prophylactic Antibiotics: The patient does not require prophylactic antibiotics. Prior Anticoagulants: The patient has taken Xarelto (rivaroxaban), last dose was 2 days prior to procedure. ASA Grade Assessment: III - A patient with severe systemic disease. After reviewing the risks and benefits, the patient was deemed in satisfactory condition to undergo the procedure. The anesthesia plan was to use monitored anesthesia care (MAC). Immediately prior to administration of medications, the patient was re-assessed for adequacy to receive sedatives. The heart rate, respiratory rate, oxygen saturations, blood pressure, adequacy of pulmonary ventilation, and response to care were monitored throughout the procedure. The physical status of the patient was re-assessed after the procedure. The Colonoscope was introduced through the anus and advanced to the ileocolonic anastomosis. The colonoscopy was performed without difficulty. The patient tolerated the procedure well. The quality of the bowel preparation was good. The terminal ileum, ileocecal valve, appendiceal orifice, and rectum were photographed. Scope insertion time was 2 minutes. Scope withdrawal time was 8 minutes. The total duration of the procedure was 10 minutes. Findings: The perianal and digital rectal examinations were normal. The jadon-terminal ileum appeared normal. There was evidence of a prior end-to-side ileo-colonic anastomosis in the ascending colon. This was patent and was characterized by healthy appearing mucosa. The anastomosis was traversed. A few small and large-mouthed diverticula were found in the sigmoid colon. There was no evidence of diverticular bleeding. A patchy area of mildly erythematous mucosa was found in the distal rectum. Non-bleeding external and internal hemorrhoids were found during retroflexion. The hemorrhoids were medium-sized. Impression: - The examined portion of the ileum was normal. - Patent end-to-side ileo-colonic anastomosis, characterized by healthy appearing mucosa. - Mild diverticulosis in the sigmoid colon. There was no evidence of diverticular bleeding. - Erythematous mucosa in the distal rectum. - Non-bleeding external and internal hemorrhoids. - No specimens collected. Recommendation: - Patient has a contact number available for emergencies. The signs and symptoms of potential delayed complications were discussed with the patient. Return to normal activities tomorrow. Written discharge instructions were provided to the patient. - High fiber diet. - Continue present medications. - Resume Xarelto (rivaroxaban) at prior dose today. - Repeat colonoscopy in 5 years for surveillance based on personal history of colon cancer and depending on clinical and functional status. - Follow the recommendations as per the other procedure note. - Return to primary care physician. Procedure Code(s): --- Professional --- 82560, Colonoscopy, flexible; diagnostic, including collection of specimen(s) by brushing or washing, when performed (separate procedure) Diagnosis Code(s): --- Professional --- Z85.038, Personal history of other malignant neoplasm of large intestine K64.8, Other hemorrhoids Z98.0, Intestinal bypass and anastomosis status K62.89, Other specified diseases of anus and rectum K57.30, Diverticulosis of large intestine without perforation or abscess without bleeding CPT copyright 2019 [employer]. All rights reserved. The codes documented in this report are preliminary and upon cash posting specialist review may be revised to meet current compliance requirements. Austen Marie MD Austen Marie MD 07/26/2021 2:14:41 PM Electronically signed by Austen Marie MD Number of Addenda: 0 Note Initiated On: 07/26/2021 1:39 PM Estimated Blood Loss: Estimated blood loss was minimal.
[2021-07-26 14:35] VITALS: BP 198/98
== END 2021-07-26 14:47 | disposition home or self-care (01) ==
LOC: M OPP 10:38
PROVIDERS: ATTEND Internal Medicine Gastroenterology
DX: K62.89 Other specified diseases of anus and rectum (principal); Z98.0 Intestinal bypass and anastomosis status; K57.30 Diverticulosis of large intestine without perforation or abscess without bleeding; K64.8 Other hemorrhoids; D50.9 Iron deficiency anemia, unspecified; K44.9 Diaphragmatic hernia without obstruction or gangrene; K22.89 Other specified disease of esophagus; K29.70 Gastritis, unspecified, without bleeding; Z85.038 Personal history of other malignant neoplasm of large intestine; Z85.830 Personal history of malignant neoplasm of bone; Z79.01 Long term (current) use of anticoagulants; Z79.899 Other long term (current) drug therapy; Z88.8 Allergy status to other drugs, medicaments and biological substances; Z91.048 Other nonmedicinal substance allergy status; Z92.3 Personal history of irradiation

== ENCOUNTER → 2021-08-03 | Outpatient (CLI) | payer MEDICARE ==
[~2021-08-03] MED LIST changes: +MORP15TA2 PO; -NS 1,000 ML IV ONE
--- NOTE | 2021-08-03 15:46 | REP ---
INDICATION: RIGHT LEG PAIN COMPARISON: None. TECHNIQUE: AP and lateral right lower leg. FINDINGS: There is no evidence of acute fracture, dislocation, or intrinsic bone disease.There is mild posterior calcaneal spurring. IMPRESSION: No fracture or dislocation. No bone lesion identified. <Electronically signed by Juan Justice > 08/03/21 [id number]
== END ==
LOC: M RAD 15:22
PROVIDERS: ATTEND Internal Medicine Medical Oncology
DX: M79.604 Pain in right leg (principal)

== ENCOUNTER → 2021-10-28 | Outpatient (CLI) | payer MEDICARE ==
[~2021-10-28] MED LIST changes: +AMBI5TAB PO; -CEFD1CAP8 PO; +CEFD300C41 PO; +GABA-282 PO; +ONDA-84 PO; -ONDA8TAB10 PO; -PROC10TA4 PO; +PROC10TA5 PO
== END ==
LOC: M WHC 11:21
PROVIDERS: ATTEND Internal Medicine Medical Oncology
DX: C61 Malignant neoplasm of prostate (principal); C79.9 Secondary malignant neoplasm of unspecified site

== ENCOUNTER → 2022-01-06 | Outpatient (CLI) | payer MEDICARE ==
[~2022-01-06] MED LIST changes: -D31000TA2 PO; +PEA PO; +VITA100093 PO
== END ==
LOC: M RAD 14:52
PROVIDERS: ATTEND Internal Medicine Medical Oncology
DX: M25.512 Pain in left shoulder (principal); Z87.81 Personal history of (healed) traumatic fracture

== ENCOUNTER → 2022-02-21 | Outpatient (CLI) | payer MEDICARE ==
[~2022-02-21] MED LIST changes: +FENT12DI8 TOP
== END ==
LOC: M RAD 16:43
PROVIDERS: ATTEND Internal Medicine Medical Oncology
DX: R07.89 Other chest pain (principal); Z95.828 Presence of other vascular implants and grafts; C79.51 Secondary malignant neoplasm of bone; C61 Malignant neoplasm of prostate

== ENCOUNTER → 2022-03-01 | Outpatient (CLI) | payer MEDICARE | LOC: M RAD 09:49 | PROVIDERS: ATTEND Internal Medicine Medical Oncology | DX: C61 Malignant neoplasm of prostate (principal); M25.512 Pain in left shoulder; C79.51 Secondary malignant neoplasm of bone | CPT/HCPCS: 78306; A9503 ==

== ENCOUNTER → 2022-03-04 | Outpatient (CLI) | payer MEDICARE ==
[~2022-03-04] MED LIST changes: +FENT12DI8 TD
== END ==
LOC: M ONCR 15:01
PROVIDERS: ATTEND General Practice
DX: C79.51 Secondary malignant neoplasm of bone (principal); C61 Malignant neoplasm of prostate; Z80.0 Family history of malignant neoplasm of digestive organs; Z92.21 Personal history of antineoplastic chemotherapy; Z92.3 Personal history of irradiation; G89.3 Neoplasm related pain (acute) (chronic); R53.0 Neoplastic (malignant) related fatigue; Z79.891 Long term (current) use of opiate analgesic; Z79.899 Other long term (current) drug therapy; Z88.8 Allergy status to other drugs, medicaments and biological substances; Z91.048 Other nonmedicinal substance allergy status; Z91.09 Other allergy status, other than to drugs and biological substances

== ENCOUNTER → 2022-03-17 | Outpatient (CLI) | payer MEDICARE | LOC: M PLAIMG 08:40 | PROVIDERS: ATTEND General Practice | DX: C61 Malignant neoplasm of prostate (principal); C79.51 Secondary malignant neoplasm of bone; K76.0 Fatty (change of) liver, not elsewhere classified; Z90.49 Acquired absence of other specified parts of digestive tract; R16.1 Splenomegaly, not elsewhere classified; N28.1 Cyst of kidney, acquired; K57.90 Diverticulosis of intestine, part unspecified, without perforation or abscess without bleeding; M51.26 Other intervertebral disc displacement, lumbar region; M51.36 Other intervertebral disc degeneration, lumbar region; J84.10 Pulmonary fibrosis, unspecified; I25.10 Atherosclerotic heart disease of native coronary artery without angina pectoris; I31.3 Pericardial effusion (noninflammatory); R91.1 Solitary pulmonary nodule; J90 Pleural effusion, not elsewhere classified; M84.58XA Pathological fracture in neoplastic disease, other specified site, initial encounter for fracture ==

== ENCOUNTER → 2022-03-25 | Outpatient (CLI) | payer MEDICARE ==
[~2022-03-25] MED LIST changes: +DEXA4TA PO
== END ==
LOC: M ONCR 10:52
PROVIDERS: ATTEND General Practice
DX: C61 Malignant neoplasm of prostate (principal); C79.51 Secondary malignant neoplasm of bone

== ENCOUNTER 2022-04-08 16:02 | Emergency (ER) | payer MEDICARE ==
[~2022-04-08] VITALS: Ht 180.3 cm; Wt 110.5 kg
[2022-04-08 18:45] VITALS: BP 133/68
== END 2022-04-08 18:47 | disposition home or self-care (01) ==
LOC: M ED 16:02
DX: R60.0 Localized edema (principal); I10 Essential (primary) hypertension; E78.5 Hyperlipidemia, unspecified; Z85.820 Personal history of malignant melanoma of skin; Z85.038 Personal history of other malignant neoplasm of large intestine; Z85.46 Personal history of malignant neoplasm of prostate; Z85.830 Personal history of malignant neoplasm of bone; Z95.1 Presence of aortocoronary bypass graft; Z95.5 Presence of coronary angioplasty implant and graft; Z79.02 Long term (current) use of antithrombotics/antiplatelets; Z79.899 Other long term (current) drug therapy; Z91.89 Other specified personal risk factors, not elsewhere classified; Z88.8 Allergy status to other drugs, medicaments and biological substances

== ENCOUNTER → 2022-04-08 | Outpatient (CLI) | payer MEDICARE ==
[~2022-04-08] MED LIST changes: +TIZA1TAB12 PO
== END ==
LOC: M ONCR 15:10
PROVIDERS: ATTEND General Practice
DX: C79.51 Secondary malignant neoplasm of bone (principal); R22.43 Localized swelling, mass and lump, lower limb, bilateral; M62.830 Muscle spasm of back; M54.9 Dorsalgia, unspecified; R06.01 Orthopnea; Z79.01 Long term (current) use of anticoagulants; Z86.718 Personal history of other venous thrombosis and embolism

== ENCOUNTER 2022-04-29 13:39 | Emergency (ER) | payer MEDICARE ==
[~2022-04-29] VITALS: Ht 180.3 cm; Wt 100.9 kg
[~2022-04-29 13:39] MED LIST changes: +ONDA8TAB8 PO
[2022-04-29] MEDS ORDERED: NS 500 ML IV ONE (14:15)
[2022-04-29] MEDS ORDERED: MORPHINE 4 MG/ML 1ML VIAL/SYRINGE IV PRN (14:15)
[2022-04-29] MEDS ORDERED: METOCLOPRAMIDE INJ 10MG/2ML VIAL (J2765 PER 1) IV ONE (14:15)
[2022-04-29 15:22] LABS: BASO # 0.1 10^3/uL (0.0-0.2); BASO % 0.9 % (0.0-1.0); EOS % 0.4 % (0.0-3.0); HEMATOCRIT 40.2 % (42.0-52.0); LYMPH % 14.5 % (24.0-44.0); MEAN CORPUSCULAR HEMOGLOBIN 26.7 pg (27.0-33.0); MEAN CORPUSCULAR HGB CONC 32.3 g/dl (32.0-36.5); MEAN CORPUSCULAR VOLUME 82.7 fl (80.0-96.0); MONO # 0.9 10^3/uL (0.0-0.8); MONO % 12.3 % (2.0-8.0); NEUTROPHILS # 4.9 10^3/uL (1.5-8.5); NEUTROPHILS % 71.3 % (36.0-66.0); PLATELET COUNT, AUTOMATED 266 10^3/uL (150-450); RED BLOOD COUNT 4.86 10^6/uL (4.30-6.10); WHITE BLOOD COUNT 6.9 10^3/uL (4.0-10.0)
[2022-04-29 16:07] LABS: ALBUMIN 2.9 GM/DL (3.2-5.2); BILIRUBIN,DIRECT 0.4 MG/DL (0.0-0.2); TOTAL PROTEIN 6.2 GM/DL (6.4-8.2)
[2022-04-29] MEDS ORDERED: ISOVUE-370 76% 100ML VIAL As Ordered ONE (16:22)
[2022-04-29 17:54] VITALS: BP 123/71
[2022-05-03] MEDS ORDERED: MAGO400T2 PO (10:39)
[2022-05-03] MEDS ORDERED: MORP-69 PO (16:28)
== END 2022-04-29 19:55 | disposition home or self-care (01) ==
LOC: M ED 13:39
DX: C79.51 Secondary malignant neoplasm of bone (principal); R11.0 Nausea; C61 Malignant neoplasm of prostate; C18.9 Malignant neoplasm of colon, unspecified; I10 Essential (primary) hypertension; E78.5 Hyperlipidemia, unspecified; K21.9 Gastro-esophageal reflux disease without esophagitis; Z95.5 Presence of coronary angioplasty implant and graft; Z95.1 Presence of aortocoronary bypass graft; I25.10 Atherosclerotic heart disease of native coronary artery without angina pectoris; N28.1 Cyst of kidney, acquired; R93.2 Abnormal findings on diagnostic imaging of liver and biliary tract; Z79.01 Long term (current) use of anticoagulants; Z79.899 Other long term (current) drug therapy; Z91.89 Other specified personal risk factors, not elsewhere classified; Z88.8 Allergy status to other drugs, medicaments and biological substances
CPT/HCPCS: 70450; 71260; 74177; 80047; 80076; 83690; 85025; 93005; 93041; 96374; 96375; 99284; J2270; J2765; Q9967

== ENCOUNTER → 2022-05-05 | Outpatient (CLI) | payer MEDICARE ==
[~2022-05-05] MED LIST changes: +MAGO400T2 PO; +MORP-69 PO; +XOFIGO(RADIUM-223 DICHLORIDE) 180UCI 6ML VL CHARGE IS PER UCI IV STA
== END ==
LOC: M ONCR 13:18
PROVIDERS: ATTEND General Practice
DX: C61 Malignant neoplasm of prostate (principal); C79.51 Secondary malignant neoplasm of bone
CPT/HCPCS: 79101; A9606; G0463

== ENCOUNTER → 2022-06-02 | Outpatient (CLI) | payer MEDICARE ==
[~2022-06-02] MED LIST changes: +ONDANSETRON 4MG 2ML VIAL IV STA
== END ==
LOC: M ONCR 12:50
PROVIDERS: ATTEND General Practice
DX: C61 Malignant neoplasm of prostate (principal); C79.51 Secondary malignant neoplasm of bone
CPT/HCPCS: 79101; A9606; G0463; J2405